=== PATIENT | female | born 1945 | race Caucasian/White ===

== ENCOUNTER 2017-07-28 12:37 | Outpatient (CLI) | payer MEDICARE ==
--- NOTE | 2017-07-28 14:23 | MRI ---
MRI LEFT SHOULDER: Date: 07/28/17 PROVIDED CLINICAL HISTORY: Shoulder pain. FINDINGS: There is mild multifocal undersurface irregularity involving the anterior distal supraspinatus tendon near the footplate. No discrete tear. The components of the rotator cuff appear otherwise normal. Th e long head biceps tendon appears intact and normally located. There is a mild glenohumeral joint effusion. The glenoid labrum and glenohumeral articular cartilage demonstrate no definite evidence for tear. There is slightly greater than physiologic subacromial/subdeltoid bursal fluid. The middle glenohumer al ligament appears irregular and attenuated. Postoperative changes of prior distal clavicular resect ion and acromioplasty are suspected. No focal concerning regional marrow or muscular signal abnormali ty is evident. IMPRESSION: 1. Undersurface irregularity of the distal conjoined tendon at the footplate without discrete tear. 2. Mild glenohumeral joint effusion. 3. Nonspecific attenuated and irregular appearance to the middle glenohumeral ligament, which could reflect injury. POS: [facility]
== END 2017-07-28 12:38 | disposition home or self-care (01) ==
LOC: TBSIIMAG 12:37
PROVIDERS: ATTEND Orthopaedic Surgery
DX: M25.512 Pain in left shoulder (principal); M25.412 Effusion, left shoulder

== ENCOUNTER 2017-12-04 10:14 | Outpatient (CLI) | payer MEDICARE ==
--- NOTE | 2017-12-04 14:01 | MRI ---
MRI OF THE CERVICAL SPINE WITHOUT CONTRAST: INDICATION: Right-sided neck pain that extends into the right arm and pinky finger. COMPARISON: Prior CT of the cervical spine dated 12/23/14 and MRI cervical spine dated 08/29/13. FINDINGS: There is an ACDF spanning C3 through C6 that is stable to the CT cervical spinal examination dated . The visualized posterior fossa appears within normal limits. Susceptibility artifact within the prevertebral soft tissues from the ACDF plates that limits evaluation. At C2-C3, there is moderate facet joint degenerative change and mild uncovertebral hypertrophy induci ng mild left neural foraminal narrowing which is stable. At C3-4, there is moderate bilateral facet joint degenerative change. There is no appreciable centra l canal or neural foraminal narrowing. At C4-5, there is moderate facet hypertrophy likely related to fusion without appreciable central can al or neural foraminal narrowing. At C5-6, there is no appreciable central canal or neural foraminal narrowing. At C6-7, there is a broad-based disk-osteophyte complex with facet joint degenerative change greater on the left inducing moderate left and mild right neural foraminal narrowing. This appears stable to a comparison examination in 2013. IMPRESSION: 1. Postsurgical change at C3 through C6 anterior cervical diskectomy and fusion. 2. Stable moderate left and mild right neural foraminal narrowing at C6-7. 3. Stable mild left neural foraminal narrowing at C2-3. POS: [facility]
== END 2017-12-04 10:15 | disposition home or self-care (01) ==
LOC: TBSIIMAG 10:14
PROVIDERS: ATTEND Specialist
DX: M54.12 Radiculopathy, cervical region (principal); M99.81 Other biomechanical lesions of cervical region; Z98.1 Arthrodesis status; Z98.890 Other specified postprocedural states
CPT/HCPCS: 72141

== ENCOUNTER 2018-01-04 01:21 | Inpatient (IN) | payer MEDICARE ==
[2018-01-04] MEDS ORDERED: Morphine 4 MG/ML VIAL ONE (02:06)
[2018-01-04 02:30] LABS: Lactic Acid 5.7 mmol/L (0.5-2.2)
[2018-01-04] MEDS ORDERED: Acetaminophen 650 MG Suppository PR PRN (03:20)
[2018-01-04] MEDS ORDERED: Sodium Chloride 0.9% 1,000 ML IV SCH ×3 (03:30→08:15)
[2018-01-04 03:53] LABS: Anion Gap 15 mmol/L (10-20); BUN (Urea Nitrogen) 12 mg/dL (9.8-20.1); Calc. Creatinine Clearance 0 mL/min (70-130); Calcium 8.3 mg/dL (7.8-10.44); Carbon Dioxide 19 mmol/L (23-31); Chloride 106 mmol/L (98-107); Estimated GFR-MDRD 58; Glucose 143 mg/dL (83-110); Potassium 3.9 mmol/L (3.5-5.1); Sodium 136 mmol/L (136-145)
[2018-01-04 05:15] LABS: Band 34 % (5-11); Hemoglobin 15.4 g/dL (12.0-16.0); Lymphocytes 7 % (21-51); MDiff Complete? YES; Mean Corpuscular HGB CONC 32.6 g/dL (32.0-36.0); Mean Corpuscular Hemoglobin 30.1 pg (27.0-31.0); Mean Corpuscular Volume 92.4 fL (78.0-98.0); Mean Platelet Volume 8.1 fL (7.4-10.4); Metamyelocyte 3 % (0-0); Monocytes 8 % (0-10); Neutrophil 48 % (42-75); Platelet Count 341 thou/uL (130-400); RBC Distribution Width 11.9 % (11.5-14.5); Red Blood Cell (RBC) Count 5.12 mill/uL (4.20-5.40); White Blood Cell (WBC) Count 8.7 thou/uL (4.8-10.8)
--- NOTE | 2018-01-04 05:36 | HP ---
DATE OF ADMISSION: 01/04/2018 PRIMARY CARE PHYSICIAN: Dr. Michael Tavera. CODE STATUS: FULL CODE. TIME OF EVALUATION: 3:00 a.m. HISTORY OF PRESENT ILLNESS: This is a 72-year-old female patient with past medical history positive for hyperlipidemia, hypertension, came to the hospital after having severe abdominal pain that has be en present since yesterday, but really worse today, associated with nausea, vomiting, chills. Patien t reported that the pain is 10/10, diffuse over the abdomen. No specific radiation, patient also rep orted some associated diarrhea, no blood in the stools were reported. No clear triggers, no alleviat ing factors, received pain medications. REVIEW OF SYSTEMS: Constitutional: Patient reported no fevers. She did report chills, generalized weakness. Respiratory: No cough, sputum production, shortness of breath. Cardiovascular: No chest pain or palpitations. Gastrointestinal: Patient reported nausea, vomiting, diarrhea, severe abdomi nal pain. [employer]: No dizziness, headache, or feeling lightheaded. Genitourinary: No burning on urina tion. Extremities: No leg swelling. All other systems were reviewed and negative except for the fi ndings mentioned above. PAST MEDICAL HISTORY: Reported in the HPI. PAST SURGICAL HISTORY: Patient had history of tubal ligation, lumpectomy, hysterectomy. PSYCHIATRIC HISTORY: No previous psychiatric history, no previous inpatient psych admissions. SOCIAL HISTORY: No alcohol, no drugs. No smoking history. KNOWN ALLERGIES: ASPIRIN, EGG, and IBUPROFEN. REPORTED MEDICATIONS: Lisinopril, atorvastatin, carisoprodol, mexiletine, Tums, Benadryl, naproxen, amitriptyline, hydrocodone/acetaminophen. PHYSICAL EXAMINATION: VITAL SIGNS: On presentation, blood pressure 148/96 with heart rate 101, respiratory rate was 20, te mperature 97.8, pain 10/10, oxygen saturation 100 on room air. GENERAL APPEARANCE: The patient is alert, ill appearing, oriented, not in any acute distress. HEENT: Normal conjunctivae. Dry oral mucosa. Anicteric. NECK: No JVD. RESPIRATORY: Bilateral air entry. No rales, no wheezing. Symmetric expansion. CARDIOVASCULAR: Patient is tachycardic, normal rhythm. No murmurs, no gallop, no edema. ABDOMEN: Soft, normal bowel sounds. MUSCULOSKELETAL: Baseline range of motion and strength. No tenderness. SKIN: Warm and intact. No pallor, no rash, no redness. Peripheral pulses are present. Capillary r efill seems to be intact. NEUROLOGIC: Baseline sensory. No evidence of any new focal weakness. Baseline speech. Cranial ner ves seem to be intact. PSYCHIATRIC: Patient is in good mood, no anxiety, oriented. Optimal judgment. IMAGING: CT scan was done and showed distal transverse colon and descending colon, wall thickening t hat seems to be infectious versus ischemic. LABORATORY DATA: Reviewed. The patient had sodium 136, potassium 3.9, chloride 106, carbon dioxide 19, anion gap 15, BUN 12, creatinine 0.94, GFR 58 with glucose 143. Lactic acid 5.7, the previous on e was 4. Hematology was reviewed. The patient has white count 9.7, hemoglobin 16.9, MCV 88, platele t count 372. Urine was negative. ASSESSMENT AND PLAN: The patient will be placed in the hospital with following medical problems: 1. Acute colitis. Differential diagnosis is ischemic or infectious etiology, patient is on antibiot ics, Dr. Orr has been consulted, was given recommendations for antibiotics, IV fluids. We will co ntinue for now, this is as per ER report. Patient has been seen and is stable, mildly tachycardic, s till with severe pain. 2. Severe abdominal pain needing opioid medications for optimal control, we will continue for now. This placed the patient at high risk for complications from treatment. 3. Hyperglycemia, glucose 143, no history of diabetes, this is likely due to acute physical distress , we will monitor, no need for any acute intervention at this point. 4. Lactic acidosis was initially 4, now 5.7, less likely secondary to chronic ischemia, treatment as above. We will treat the underlying condition. 5. Deep venous thrombosis prophylaxis. 6. History of hyperlipidemia, low cholesterol diet is advised. Medications will be reconciled once patient is able to take p.o. pills.
[2018-01-04 05:48] LABS: Lactic Acid 4.8 mmol/L (0.5-2.2)
[2018-01-04] MEDS: Ondansetron HCl/PF 4 MG/2 ML Vial IVP PRN (05:59)
[2018-01-04] MEDS ORDERED: Piperacillin/Tazobactam 3.375 GM in Sodium Chloride 0.9% 100 ML IVPB SCH (06:00)
--- NOTE | 2018-01-04 06:19 | PDOC.EVN ---
Event Note - Event Note Event Note: Pt. has continued to deteriorate, has become hypotensive, SBP 78, possible septic shock, we will hydrate aggressively, we have given updates to Dr Orr, he will see pt, will start on vasopressors if no response to ivf. pt already on abt's. will consult ICU
[2018-01-04] MEDS ORDERED: Albumin 5% 500 ML ONE (08:00)
--- NOTE | 2018-01-04 08:06 | PDOC.PN ---
- Subjective Encounter Start Date: 01/04/18 Encounter Start Time: 08:05 Worsening pain. Worsening distention. - Objective Resuscitation Status: Resuscitation Status FULL:Full Resuscitation Vital Signs & Weight: Vital Signs (12 hours) Temp Pulse Resp BP Pulse Ox 01/04/18 07:46 94 L 01/04/18 07:00 97.8 F 01/04/18 05:54 99.2 F 112 H 22 H 84/54 L 95 Weight Weight 186 lb 8 oz Most Recent Monitor Data Heart Rate from ECG 98 NIBP 77/41 NIBP BP-Mean 53 Respiration from ECG 27 SpO2 96 I&O: 01/03/18 01/04/18 01/05/18 06:59 06:59 06:59 Intake Total 100 Output Total 900 Balance -800 Result Diagrams: 01/04/18 01:54 01/04/18 01:54 Phys Exam - Physical Examination Ill appearing. Respiratory: no wheezing, no rales, no rhonchi Cardiovascular: RRR, no significant murmur Distended, diffusely TTP and guarding. Musculoskeletal: no edema Skin: normal turgor Dx/Plan (1) Colitis Code(s): K52.9 - NONINFECTIVE GASTROENTERITIS AND COLITIS, UNSPECIFIED Status : Acute (2) Sepsis Code(s): A41.9 - SEPSIS, UNSPECIFIED ORGANISM Status: Acute - Plan * Dropped her pressure this morning. Moved to ICU. 5 liters of fluid. Still hypotensive. Concerning for perforation. Discussed with Dr. Orantes and Dr. Orr. Plan surgery today.
--- NOTE | 2018-01-04 08:29 | HP ---
HISTORY OF PRESENT ILLNESS: A 72-year-old female who presents to the hospital late last night for on set abdominal pain yesterday with nausea and vomiting. Her pain is severe. She was found to be acid otic and have a high lactic acid level. Her white count was normal, although she had a severe left s hift. She was admitted to the floor as her blood pressure seemed to be normal, but it deteriorated i n the 70s and she was moved to the ICU. I am seeing her this morning, the patient states her pain is severe and intolerable and she states "please just do something". ALLERGIES: ASPIRIN, IBUPROFEN. TOBACCO: None. ALCOHOL: None. MEDICATIONS: Tramadol, lisinopril, gabapentin, Flexeril, atorvastatin, amitriptyline. PAST SURGICAL HISTORY: Carpal tunnel release, hysterectomy, cervical spine surgery. 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 She had a colonosco py in the last year or two. She has had a stress test with Dr. Khan that was normal in the last ye ar or two. REVIEW OF SYSTEMS: Ten point noncontributory. FAMILY HISTORY: Noncontributory. MEDICATIONS: The patient has been started on Zosyn. Dr. Orantes has seen her. IV fluid boluses given. PHYSICAL EXAMINATION: VITAL SIGNS: Height 5 foot 6 inches, 186 pounds, 30 BMI, 94% saturation, 77/41, heart rate 98. HEENT: Unremarkable. A 12-Turkmen NG tube in place. LUNGS: Clear to auscultation. CARDIAC: Regular rate and rhythm without murmur or gallop. ABDOMEN: Slightly distended, no bowel sounds, peritoneal signs diffusely. EXTREMITIES: Unremarkable. No ankle edema. LABORATORY DATA AND IMAGING: White count 8, hemoglobin 15, 34% bands. Sodium 136, potassium 3.9, ca rbon dioxide 19, BUN 12, creatinine 0.94. Lactic acid 5.7 at 0200, 4.8 at 0500. CAT scan of the abd omen and pelvis suggests diffuse colonic thickening. ASSESSMENT: Acute abdomen, expect ischemic bowel. PLAN: Laparotomy and indicated procedures, possible colostomy. Risk and benefits discussed, she con sents. We will plan that stat urgently this morning. We will place a central line. We will replace her NG tube most likely with adequate caliber NG tube.
[2018-01-04] MEDS: Sodium Chloride 0.9% 1,000 ML IV SCH ×5 (08:41→18:25)
[2018-01-04] MEDS: Pantoprazole 40 MG VIAL IVP SCH (08:53)
[2018-01-04] MEDS ORDERED: Phenylephrine HCL 10 MG/ML VIAL ONE (08:54)
[2018-01-04] MEDS ORDERED: Fentanyl 100 MCG/2 ML VIAL ONE (08:54)
[2018-01-04] MEDS: Hydrocortisone Sod Succ/PF 100 mg/2 ml Vial IVP SCH ×2 (08:55→18:00)
[2018-01-04] MEDS ORDERED: Sodium Chloride 0.9% 30 ML ONE (08:56)
--- NOTE | 2018-01-04 09:14 | RAD ---
PORTABLE CHEST: DATE: 01/04/18. PROVIDED CLINICAL HISTORY: Dyspnea. FINDINGS: No comparisons. Cardiac and mediastinal silhouette is within normal limits for portable technique. Bibasilar subsegmental atelectatic changes are seen. Elevation of the right hemidiaphragm of unknown chronicity. Enteric catheter is demonstrated, the tip of which projects in the region of the gastro esophageal junction and the proximal side hole lucency of which projects over the expected location o f the distal esophagus. No pleural fluid or pneumothorax evident. IMPRESSION: Enteric catheter positioning as above. Advancement is suggested. POS: [facility]
--- NOTE | 2018-01-04 09:57 | CON ---
DATE OF CONSULTATION: 01/04/2018 HISTORY OF PRESENT ILLNESS: This is a 72-year-old female from [place] who presented with symptoms o f severe abdominal pain, hypertension, diarrhea and vomiting several times. She received 5 liters of fluid. Blood pressure is still 80 systolic. Pulse 105, temperature 98, pul se 93. She is complaining of severe abdominal pain. PRIMARY CARE DOCTOR: Dr. Tavera, a Family Medicine physician here. SOCIAL HISTORY: She is nonsmoker. She has never had a similar pain in the past. PAST MEDICAL HISTORY: As outlined for chronic back pain, she has had recent back surgery done. Hist ory of hyperlipidemia, hypertension, neuropathy, arthritis. PAST SURGICAL HISTORY: Tubal ligation, lumpectomy, hysterectomy, back surgery. TOBACCO: None. ALCOHOL: None. MEDICATIONS: From home includes tramadol 50, lisinopril 10, gabapentin 600 twice a day, Flexeril 10, Lipitor 20, amitriptyline 75. ALLERGIES: ASPIRIN, IBUPROFEN. REVIEW OF SYSTEMS: Otherwise unremarkable. PHYSICAL EXAMINATION: VITAL SIGNS: Blood pressure is low 82/51, pulse 104, sats are 92%, maximal temperature 97. CHEST: Decreased breath sounds, no wheezing. CARDIAC: Normal S1, S2, no gallops. . ABDOMEN: Distended, very tender in the left upper quadrant, left lower quadrant. EXTREMITIES: No edema. NEUROLOGIC: Awake, alert, responsive. LABORATORY: She has got a white count 8.7, H&H 15 and 47, 48 segs, 34 bands. Renal function normal. Electrolytes normal. Lactic acid 4.8. X-RAY FINDINGS: Chest x-ray shows a marked elevated right hemidiaphragm. IMPRESSION: 1. Acute abdomen. Diverticulitis versus perforation. 2. Marked hypotension with lactic acidosis. 3. Hypertension. 4. Abnormal chest x-ray. 5. Chronic pain. PLAN: Stress dose of steroids were initiated. Continue Zosyn. Supportive care. We will follow. Surgery was consulted. She is to go to the operating room. Forty-five minutes critical care time.
[2018-01-04] MEDS ORDERED: Sodium Bicarbonate 2.5 MEQ/5 ML VIAL ONE (10:33)
[2018-01-04] MEDS ORDERED: Sodium Bicarb 50 MEQ/50 ML Abboject 8.4% SYRINGE ONE (10:37)
[2018-01-04] MEDS ORDERED: Fentanyl BOLUS 250 ML IVPB PRN (11:28)
[2018-01-04] MEDS ORDERED: Propofol BOLUS 1,000 MG/100 ML VIAL IV PRN (11:28)
[2018-01-04] MEDS ORDERED: DISCONTINUE PREVIOUS NARCOTIC PAIN MEDICATIONS AND BENZODIAZEPINES FS SCH (11:28)
[2018-01-04] MEDS ORDERED: Ventilator Sedation Protocol 1 EACH FS SCH (11:30)
[2018-01-04 11:50] LABS: Actual Bicarbonate (HCO3a) 14.3 mEq/L (22-28); Base Excess (BEa) -10.7 mEq/L (-2.0 to +3.0); CO2 Tension 29.5 mmHg (35.0-45.0); Calcium, Ionized 1.02 mmol/L (1.12-1.30); Carboxyhemoglobin (COHb) 1.1 gm% (0.0-3.0); Hemoglobin (Hb) 11.8 g/dL (12.0-16.0); O2 Tension (PaO2) 68.3 mmHg (> 70.0); Potassium - ABG Lab 3.94 mmol/L (3.70-5.30)
[2018-01-04 11:51] LABS: ALV-art Gradient 465.225 (0-20); Puncture Site ALINE
[2018-01-04] MEDS ORDERED: Hetastarch 6% 500 ML 500 ML ONE (12:02)
[2018-01-04] MEDS ORDERED: Norepinephrine 8 MG/0.9% NS 250 ML ONE (12:03)
--- NOTE | 2018-01-04 12:12 | RAD ---
CHEST 1 VIEW: Date: 01/04/18 HISTORY: 72-year-old female with history of respiratory insufficiency. FINDINGS: NG tube, endotracheal tube, and right subclavian catheters are in place. Poor inspiratory effort with some increased linear and interstitial markings bilaterally. Evidence for mild vascular congestion a nd possibly developing subsegmental atelectasis and/or minimal bilateral pneumonitis, without overt c onfluent process. IMPRESSION: Increased linear and interstitial markings bilaterally, particularly in the perihilar region and lowe r lung zones, evidence for worsening vascular congestion and possible mild subsegmental atelectasis a nd/or pneumonitis. No confluent pneumonia. Continue short-term follow-up. POS: [facility]
[2018-01-04] MEDS ORDERED: Hetastarch 6% 500 ML 500 ML IVPB SCH (12:15)
[2018-01-04] MEDS ORDERED: Albumin 25% 25 GM/100 ML BOT IVPB SCH (12:15)
[2018-01-04] MEDS: Norepinephrine 8 MG/0.9% NS 250 ML IVPB SCH (12:15)
[2018-01-04] MEDS: Piperacillin/Tazobactam 4.5 GM in Sodium Chloride 0.9% 100 ML IVPB SCH ×2 (12:37→18:00)
--- NOTE | 2018-01-04 12:49 | OP ---
DATE OF PROCEDURE: 01/04/2018 PREOPERATIVE DIAGNOSES: Peritonitis, ischemic gangrenous colon. POSTOPERATIVE DIAGNOSES: Peritonitis, ischemic gangrenous colon. Gangrenous splenic flexure with cl oudy peritoneal fluid sent for culture and sensitivity. PROCEDURE: Right subclavian vein triple lumen catheter. Exploratory laparotomy. Mobilization of sp lenic flexure. Resection of the distal transverse colon, splenic flexure, descending colon, sigmoid colon with Alvaro's pouch marked with a 2-0 Prolene suture and a colostomy end with adequate redund ant colon for future reversal. SURGEON: Raymond Orr M.D. ANESTHESIA: General. ESTIMATED BLOOD LOSS: Less than 100 mL. BLOOD TRANSFUSED: None. DISPOSITION: The patient left intubated and transferred to the Intensive Care Unit in critical condi tion, although improved. PROCEDURE IN DETAIL: The patient was taken to the operating room where under general anesthesia, Fol ey catheter was placed. Abdomen prepared with ChloraPrep, draped in routine fashion. Incision was m ivania centered about the umbilicus in the midline, carried down skin and subcutaneous tissue, midline f ascia and abdominal cavity sharply. There was serous cloudy peritoneal fluid, but no stool evident. This fluid was sent for culture and sensitivity. It was evacuated. A transverse colon, splenic fle xure, descending colon, sigmoid colon mobilized. Left ureter identified and kept free of harm. Ther e was a viable section of the distal transverse colon, the colon was divided with BETHANY stapler. Disse ction carried out distally and the descending colon divided with a BETHANY stapler, colon mobilized. Mes entery divided with the LigaSure and resected submitted to Pathology. Some of the omentum was also t aken down with the LigaSure and submitted to pathology. A segment of sigmoid colon was dissected pradip e, left ureter identified and kept free of harm, divided with the LigaSure and Alvaro's pouch creat ed with another fire of the BETHANY stapler to facilitate future colostomy reversal. Good hemostasis not ed and obtained with the cautery. Ureter kept free of harm. Abdominal cavity irrigated thoroughly w ith saline solution, irrigant evacuated. Hemostasis noted. A circular defect made in the skin, exci sing skin and subcutaneous tissue down to the anterior rectus fascia making a cruciate incision, spli tting the rectus muscle and creating a colostomy, colon brought out through this colostomy. As spong e and needle counts were correct, midline fascia closed with continuous suture of 3-0 #1 PDS. Skin a nd subcutaneous tissues irrigated. Skin loosely approximated with zahida. Wound VAC applied and th en colostomy matured, excising the colon. There was a gangrenous ischemic mucosa. More colon was pu lled out of the wound and resected another 3-4 inches of colon to viable mucosa. The colon was trans ected, matured with 4 turn bolt sutures of 3-0 Vicryl interrupted sutures of 3-0 Vicryl to complete c olostomy maturation, colostomy appliance secured. Gloves and gowns changed, sterile technique used. Right periclavicular prepared with ChloraPrep, janice ped in routine fashion. Seldinger technique used to place a right subclavian vein infraclavicular ap proach, removing the J-wire, securing the catheter with 3-0 silk suture. Biopatch sterile dressing a pplied. Each port aspirated of blood and flushed with saline solution. The patient tolerated the pr ocedure well.
[2018-01-04] MEDS: fentaNYL Citrate/PF 2,000 MCG in Sodium Chloride 0.9% 60 ML IV SCH (13:00)
[2018-01-04] MEDS ORDERED: PHENYLEPHRINE-NS 100 MCG/ML 10 ML SYRINGE ONE (13:13)
[2018-01-04] MEDS ORDERED: Sodium Bicarb 50 MEQ/50 ML VIAL ONE (13:13)
[2018-01-04] MEDS ORDERED: Lidocaine 1% PF 5 ML VIAL ONE (13:13)
[2018-01-04] MEDS ORDERED: Succinylcholine Chloride 20 MG/ML 10 ml SYRINGE FS ONE (13:13)
[2018-01-04] MEDS ORDERED: PROPOFOL 200 MG/20 ML VIAL ONE (13:13)
[2018-01-04] MEDS: Propofol 1,000 MG/100 ML VIAL IV PRN (16:00)
[2018-01-04] MEDS: Albumin 25% 25 GM/100 ML BOT IVPB SCH (17:59)
[2018-01-04] MEDS: Enoxaparin Sodium 40 MG/0.4 ML SYRINGE SC SCH (20:20)
[2018-01-05] MEDS: Sodium Chloride 0.9% 1,000 ML IV SCH ×3 (00:16→09:55)
[2018-01-05] MEDS: Propofol 1,000 MG/100 ML VIAL IV PRN ×2 (00:16→04:24)
[2018-01-05] MEDS: Piperacillin/Tazobactam 4.5 GM in Sodium Chloride 0.9% 100 ML IVPB SCH ×4 (00:16→18:26)
[2018-01-05] MEDS: Albumin 25% 25 GM/100 ML BOT IVPB SCH ×4 (00:17→18:26)
[2018-01-05] MEDS: Hydrocortisone Sod Succ/PF 100 mg/2 ml Vial IVP SCH ×4 (00:17→18:30)
[2018-01-05] MEDS: fentaNYL Citrate/PF 2,000 MCG in Sodium Chloride 0.9% 60 ML IV SCH (02:45)
[2018-01-05] MEDS: Norepinephrine 8 MG/0.9% NS 250 ML IVPB SCH (04:15)
[2018-01-05 06:04] LABS: Band 40 % (5-11); Lymphocytes 8 % (21-51); MDiff Complete? YES; Mean Corpuscular HGB CONC 32.7 g/dL (32.0-36.0); Mean Corpuscular Hemoglobin 29.8 pg (27.0-31.0); Mean Corpuscular Volume 91.2 fL (78.0-98.0); Metamyelocyte 5 % (0-0); Monocytes 6 % (0-10); Neutrophil 39 % (42-75); Platelet Count 229 thou/uL (130-400); Reactive Lymphocytes 2 % (0-10); Red Blood Cell (RBC) Count 3.35 mill/uL (4.20-5.40); White Blood Cell (WBC) Count 11.9 thou/uL (4.8-10.8)
[2018-01-05 06:49] LABS: ALT (SGPT) 34 U/L (8-55); AST (SGOT) 47 U/L (5-34); Albumin 2.7 g/dL (3.4-4.8); Alkaline Phosphatase 78 U/L (40-150); Anion Gap 11 mmol/L (10-20); BUN (Urea Nitrogen) 17 mg/dL (9.8-20.1); Calc. Creatinine Clearance 76 mL/min (70-130); Carbon Dioxide 15 mmol/L (23-31); Chloride 117 mmol/L (98-107); Estimated GFR-MDRD 64; Globulin 1.6 g/dL (2.4-3.5); Glucose 132 mg/dL (83-110); Magnesium 1.5 mg/dL (1.6-2.6); Phosphorus 2.2 mg/dL (2.3-4.7); Potassium 3.3 mmol/L (3.5-5.1); Protein, Total 4.3 g/dL (6.0-8.3); Sodium 140 mmol/L (136-145)
[2018-01-05 07:22] LABS: Actual Bicarbonate (HCO3a) 14.3 mEq/L (22-28); Base Excess (BEa) -7.4 mEq/L (-2.0 to +3.0); Calcium, Ionized 1.02 mmol/L (1.12-1.30); Hemoglobin (Hb) 9.8 g/dL (12.0-16.0); O2 Tension (PaO2) 110.5 mmHg (> 70.0); Potassium - ABG Lab 3.24 mmol/L (3.70-5.30); pH, Arterial 7.49 (7.35-7.45)
[2018-01-05 07:25] LABS: CO2 Tension 19.2 mmHg (35.0-45.0); Puncture Site LINE
[2018-01-05] MEDS ORDERED: Magnesium Sulfate 4 GM in Sodium Chloride 0.9% 250 ML 250 ML IVPB SCH (08:00)
[2018-01-05] MEDS ORDERED: Potassium Phosphate 30 MMOL in Sodium Chloride 0.9% 250 ML 250 ML IVPB SCH (08:00)
--- NOTE | 2018-01-05 08:26 | RAD ---
PORTABLE CHEST: History: Respiratory distress. Comparison: Prior day's study. FINDINGS: Endotracheal and NG tube and right subclavian line are all in satisfactory and unchanged position. Pa renchymal lung changes are stable. IMPRESSION: Stable exam. POS: [facility]
--- NOTE | 2018-01-05 08:29 | PRG ---
DATE OF SERVICE: 01/05/2018 This morning, she is intubated on the vent and sedated on Diprivan. PHYSICAL EXAMINATION: VITAL SIGNS: Pulse 87, blood pressure 130/87, sat 90%, respirations 18. GENERAL: She barely opens eyes. CHEST: Extensive rhonchi and crackles. CARDIAC: Sinus tachycardia. ABDOMEN: Soft. NEUROLOGIC: Awake, responsive. LABORATORY DATA: White count 11,000, hemoglobin and hematocrit 10 and 30, platelet count 229, PO2 o f 110, pCO2 90%, 49, rate 20, 50%. Electrolytes are normal. ____ 3.3. IMPRESSION: 1. Acute abdomen. 2. Hypertension. 3. Sepsis shock. 4. Respiratory failure with abnormal chest x-ray, bilateral infiltrates. PLAN: Stress dose of steroids initiated, broad-spectrum antibiotics, Zosyn on board. Supportive car e. We will try and wean and extubate when stable. One-half hour critical care time.
[2018-01-05] MEDS ORDERED: DC Sedation Protocol FS ONE (08:53)
[2018-01-05] MEDS ORDERED: Prevnar 13-Val Conj/PF 0.5 ML SYRINGE IM ONE (09:00)
[2018-01-05] MEDS: Pantoprazole 40 MG VIAL IVP SCH (09:55)
[2018-01-05] MEDS ORDERED: Morphine 4 MG/ML Carpuject SLOW IVP PRN (12:31)
--- NOTE | 2018-01-05 12:57 | PRG ---
DATE OF SERVICE: 01/05/2018 SUBJECTIVE: Ms. Braga is a doing well. She has been extubated this morning. She is slightly conf used. She is, however, awake and alert and conversive. PHYSICAL EXAMINATION: VITAL SIGNS: Blood pressure 127/79, heart rate 110. Urine output 2225 Blake in the last 24 hours. Gastric output minimal. LUNGS: Clear to auscultation. CARDIAC: Regular rate and rhythm. ABDOMEN: Soft. Wound VAC in place. Colostomy healthy. EXTREMITIES: Unremarkable. LABORATORY: Potassium 3.3, sodium 140, BUN 17, creatinine 0.87. Magnesium, phosphorus slightly low and have been replaced. Cortisol level 25.5. White count 11, hemoglobin 10. ASSESSMENT AND PLAN: 1. Doing well. Colostomy status. NG tube has put out very little. Her small bowel was not dilated . Would at this point remove her NG tube. Would keep her n.p.o. for now. She can have sips and chi ps. We will decrease her IV fluids and change to LR with potassium. Would keep her n.p.o. until she has more definitive bowel function and assuring ileus would not develop. Dr. Allen is covering the weekend and will see her. 2. N.p.o. status. I do not think she needs TPN or parenteral nutrition at this time, would await fracisco wel function and advance her diet as tolerated. 3. Need to increase her mobility up in a chair. 4. Wound VAC to be changed Monday. I will view the wound Monday. 5. Gangrene colon, status post colectomy and colostomy and sepsis.
--- NOTE | 2018-01-05 13:30 | CON ---
DATE OF CONSULTATION: 01/05/2018 REASON FOR CONSULTATION: Ischemia colon. HISTORY OF PRESENT ILLNESS: Ms. Braga came in at 3:00 in the morning on 01/04/2018 with severe abd ominal pain that started about the day before or may be that day. She has just been extubated and he r memory is a bit foggy, apparently it was severe pain. She noted no prior history of chronic colon or GI diseases, but stated that she tends to be constipated. That day when she came in, she was hav ing a little bit of diarrhea, but no bleeding. She had a CAT scan that showed a distal transverse co tino and descending colon wall thickening. She had an elevated lactic acid, white count 9, platelet c ount of 372. She is admitted with a diagnosis of acute colitis. Dr. Orr was called to see the francie nichole and saw her at 8 in the morning. Overnight, the patient had apparently deteriorated with dropp ing her blood pressure and was moved to the ICU and her pain was worsening. He opted to bring her to the operating room for suspected ischemic bowel and in the operating room, found ischemic gangrenou s colon with peritonitis, gangrenous splenic flexure, resected at the splenic flexure and distal quintanilla sverse colon, descending colon and sigmoid colon. PAST SURGICAL HISTORY: Tubal ligation, lumpectomy, hysterectomy. She denies ever having colonoscopy before. PAST MEDICAL HISTORY: Hypertension, hyperlipidemia, fibromyalgia, arthritis. ALLERGIES: ASPIRIN, ____ derivatives and IBUPROFEN. HOME MEDICATIONS: Lisinopril, atorvastatin, carvedilol, mexiletine Tums, Benadryl, amitriptyline. PRESENT MEDICATIONS: Tylenol, albumin, Lovenox, Solu-Cortef, Toradol, morphine, Protonix, normal samson ine at 150. She is on Zosyn as well. LABORATORY AND X-RAY FINDINGS: White count 11, hemoglobin 10, platelet count 228. Sodium 140, potas sium 3.3, glucose 132, calcium 7, phosphorus 2.2, magnesium 1.5, AST and ALT of 47 and 34, albumin 2. 4. Cortisol was 25. ASSESSMENT: This is a 72-year-old female who presented with acute colonic ischemia, left-sided. Thi s is likely related to low flow state, could be related to severe obstipation and laxative use. It i s really not clear from her history; however, she is not very awake. Typically ischemic colitis in t he left side of the colon is not an arterial problem, but more of a venous outflow problem that usual ly results from dehydration or use of strong ____. Presently she seems stable. RECOMMENDATIONS: Maintain hydration and await pathology. No new recommendations at this time.
--- NOTE | 2018-01-05 13:33 | PDOC.PN ---
- Subjective Encounter Start Date: 01/05/18 Encounter Start Time: 08:30 -: old records requested/rev this morning pt is extubated, Patient seen and examined. No overnight events - Objective Resuscitation Status: Resuscitation Status FULL:Full Resuscitation MAR Reviewed: Yes Vital Signs & Weight: Vital Signs (12 hours) Temp Pulse Resp BP Pulse Ox 01/05/18 11:40 114 H 16 91 L 01/05/18 08:55 91 L 01/05/18 08:00 99.1 F 20 01/05/18 07:11 63 118/61 01/05/18 06:00 20 01/05/18 04:00 97.6 F 20 01/05/18 02:00 20 Weight Weight 186 lb 8 oz Most Recent Monitor Data Heart Rate from ECG 107 NIBP 120/74 NIBP BP-Mean 89 Respiration from ECG 23 SpO2 91 I&O: 01/04/18 01/05/18 01/06/18 06:59 06:59 06:59 Intake Total 8451 27.8 Output Total 2485 175 Balance 5966 -147.2 Result Diagrams: 01/05/18 04:34 01/05/18 04:34 Radiology Reviewed by me: Yes (chest xray reviewed) EKG Reviewed by me: Yes (nsr) Phys Exam - Physical Examination Constitutional: NAD NG tube in place HEENT: PERRLA, moist MMs, sclera anicteric Neck: no JVD, supple Respiratory: no wheezing, no rales, no rhonchi Cardiovascular: RRR, no significant murmur, no rub central line on right chest Gastrointestinal: soft, no distention wound vac in place, colostomy+ Musculoskeletal: no edema, pulses present Neurological: non-focal, normal sensation Lymphatic: no nodes Psychiatric: normal affect, A&O x 3 Skin: no rash, normal turgor Dx/Plan (1) Acute bacterial peritonitis Code(s): K65.9 - PERITONITIS, UNSPECIFIED Status: Acute Comment: on Zosyn, follow culture (2) Acute respiratory insufficiency, postoperative Code(s): J95.89 - OTH POSTPROC COMPLICATIONS AND DISORDERS OF RESP SYS, NEC Status: Acute Comment: pt is extubated today, wean off oxygen as tolerated (3) Anemia due to blood loss, acute Code(s): D62 - ACUTE POSTHEMORRHAGIC ANEMIA Status: Acute Comment: monitor CBC (4) Gangrene of colon Code(s): K55.049 - ACUTE INFARCTION OF LARGE INTESTINE, EXTENT UNSPECIFIED Status: Acute Comment: s/p colectomy (5) Hypokalemia Code(s): E87.6 - HYPOKALEMIA Status: Acute (6) Hypomagnesemia Code(s): E83.42 - HYPOMAGNESEMIA Status: Acute (7) Hypophosphatemia Code(s): E83.39 - OTHER DISORDERS OF PHOSPHORUS METABOLISM Status: Acute (8) Lactic acidosis Code(s): E87.2 - ACIDOSIS Status: Acute (9) Severe sepsis Code(s): A41.9 - SEPSIS, UNSPECIFIED ORGANISM; R65.20 - SEVERE SEPSIS WITHOUT SEPTIC SHOCK Status: Acute (10) Depression Code(s): F32.9 - MAJOR DEPRESSIVE DISORDER, SINGLE EPISODE, UNSPECIFIED Status : Chronic (11) Dyslipidemia Code(s): E78.5 - HYPERLIPIDEMIA, UNSPECIFIED Status: Chronic (12) Hypertension Code(s): I10 - ESSENTIAL (PRIMARY) HYPERTENSION Status: Chronic (13) Obesity (BMI 30.0-34.9) Code(s): E66.9 - OBESITY, UNSPECIFIED Status: Chronic - Plan cont current plan of care, continue antibiotics * replace potassium phosphate * replace magnesium sulfate * medication reviewed as below * symptomatic treatment as below * NG tube may be removed later today * diet will defer to surgeon, for now keep NPO * repeat labs tomorrow. Review of Systems - Review of Systems ENT: negative: Ear Pain, Ear Discharge, Nose Pain, Nose Discharge, Nose Congestion, Mouth Pain, Mouth Swelling, Throat Pain, Throat Swelling, Other Respiratory: negative: Cough, Dry, Shortness of Breath, Hemoptysis, SOB with Excertion, Pleuritic Pain, Sputum, Wheezing Cardiovascular: negative: chest pain, palpitations, orthopnea, paroxysmal nocturnal dyspnea, edema, light headedness, other Gastrointestinal: negative: Nausea, Vomiting, Abdominal Pain, Diarrhea, Constipation, Melena, Hematochezia, Other Genitourinary: negative: Dysuria, Frequency, Incontinence, Hematuria, Retention , Other Musculoskeletal: negative: Neck Pain, Shoulder Pain, Arm Pain, Back Pain, Hand Pain, Leg Pain, Foot Pain, Other - Medications/Allergies Allergies/Adverse Reactions: Allergies Allergy/AdvReac Type Severity Reaction Status Date / Time egg Allergy Mild Verified 10/08/13 11:43 aspirin Allergy Verified 10/09/13 11:42 ibuprofen Allergy Verified 10/09/13 11:42 Medications: Current Medications Albumin Human (Albumin 25%) 25 gm IVPB Q6HR [facility] Stop: 01/06/18 18:01 Last Admin: 01/05/18 12:31 Dose: 25 gm Albuterol/Ipratropium (Duoneb) 3 ml NEB [id number] [facility] Last Admin: 01/05/18 11:40 Dose: 3 ml Enoxaparin Sodium (Lovenox) 40 mg SC 2100 [facility] Last Admin: 01/04/18 20:20 Dose: 40 mg Hydrocortisone Sodium Succinate (Solu-Cortef) 50 mg IVP Q6HR [facility] Last Admin: 01/05/18 12:31 Dose: 50 mg Piperacillin Sod/Tazobactam (Sod 4.5 gm/ Sodium Chloride) 100 mls @ 200 mls/hr IVPB Q6HR [facility] Last Admin: 01/05/18 12:30 Dose: 100 mls Potassium Phosphate 30 mmol/ (Sodium Chloride) 260 mls @ 42.466 mls/hr IVPB NOW [facility] Stop: 01/05/18 15:00 Last Admin: 01/05/18 09:56 Dose: 260 mls Acetaminophen 1,000 mg/ Device 100 mls @ 400 mls/hr IVPB Q6HR [facility] Stop: 01/06/18 18:01 Potassium Chloride 30 meq/ (Dextrose/Lactated Ringer's) 1,015 mls @ 125 mls/hr IV .Q8H8M [facility] Ketorolac Tromethamine (Toradol) 30 mg IVP Q6H PRN PRN Reason: Pain Stop: 01/10/18 12:32 Lorazepam (Ativan) 2 mg SLOW IVP Q1H PRN PRN Reason: Breakthrough agitation Stop: 02/03/18 11:28 Morphine Sulfate (Morphine) 2 mg SLOW IVP Q2H PRN PRN Reason: Pain Discontinue Previous Narcotic Pain Medications And Benzodiazepines 1 each FS .ONE [facility] Stop: 02/03/18 11:28 Ondansetron HCl (Zofran) 4 mg IVP Q6H PRN PRN Reason: Nausea/Vomiting Last Admin: 01/04/18 05:59 Dose: 4 mg Pantoprazole Sodium (Protonix) 40 mg IVP DAILY [facility] Last Admin: 01/05/18 09:55 Dose: 40 mg Propofol (Diprivan) 1,000 mg IV INF PRN; Protocol PRN Reason: TO ACHIEVE GOAL RASS Stop: 02/03/18 11:28 Last Admin: 01/05/18 04:24 Dose: 1,000 mg Sodium Chloride (Flush - Normal Saline) 10 ml IVF DAILY [facility] Last Admin: 01/05/18 09:56 Dose: 10 ml Sodium Chloride (Flush - Normal Saline) 10 ml IVF PRN PRN PRN Reason: Saline Flush
[2018-01-05] MEDS: Ketorolac Tromethamine 30 MG/ML VIAL IVP PRN (14:21)
[2018-01-05] MEDS: Acetaminophen 1,000 MG in Premix Bag 1 BAG IVPB SCH ×2 (15:20→18:12)
[2018-01-05] MEDS: Enoxaparin Sodium 40 MG/0.4 ML SYRINGE SC SCH (20:32)
[2018-01-06] MEDS: Acetaminophen 1,000 MG in Premix Bag 1 BAG IVPB SCH ×4 (00:56→21:18)
[2018-01-06] MEDS: Piperacillin/Tazobactam 4.5 GM in Sodium Chloride 0.9% 100 ML IVPB SCH ×4 (00:57→21:19)
[2018-01-06] MEDS: Hydrocortisone Sod Succ/PF 100 mg/2 ml Vial IVP SCH ×3 (00:57→12:00)
[2018-01-06] MEDS: Albumin 25% 25 GM/100 ML BOT IVPB SCH ×2 (00:58→05:29)
[2018-01-06] MEDS: Ketorolac Tromethamine 30 MG/ML VIAL IVP PRN (03:36)
[2018-01-06] MEDS ORDERED: Diabetic Tussin 200 MG/10 ML UDCUP PO PRN (03:59)
[2018-01-06] MEDS ORDERED: Lorazepam 2 MG/ML VIAL SLOW IVP PRN ×2 (05:19→14:19)
[2018-01-06 05:20] LABS: ALT (SGPT) 40 U/L (8-55); AST (SGOT) 55 U/L (5-34); Alkaline Phosphatase 85 U/L (40-150); Anion Gap 9 mmol/L (10-20); BUN (Urea Nitrogen) 16 mg/dL (9.8-20.1); Bilirubin, Total 0.5 mg/dL (0.2-1.2); Calc. Creatinine Clearance 74 mL/min (70-130); Calcium 8.2 mg/dL (7.8-10.44); Carbon Dioxide 20 mmol/L (23-31); Chloride 120 mmol/L (98-107); Estimated GFR-MDRD 62; Globulin 1.6 g/dL (2.4-3.5); Glucose 152 mg/dL (83-110); Magnesium 3.2 mg/dL (1.6-2.6); Phosphorus 2.5 mg/dL (2.3-4.7); Potassium 3.7 mmol/L (3.5-5.1); Protein, Total 5.6 g/dL (6.0-8.3); Sodium 145 mmol/L (136-145)
[2018-01-06] MEDS ORDERED: Lorazepam 2 MG/ML VIAL SLOW IVP SCH (05:30)
[2018-01-06 06:38] LABS: Band 22 % (5-11); Hemoglobin 8.6 g/dL (12.0-16.0); Lymphocytes 4 % (21-51); MDiff Complete? YES; Mean Corpuscular HGB CONC 33.6 g/dL (32.0-36.0); Mean Corpuscular Volume 92.3 fL (78.0-98.0); Mean Platelet Volume 7.6 fL (7.4-10.4); Metamyelocyte 1 % (0-0); Monocytes 3 % (0-10); Neutrophil 70 % (42-75); PLT Morphology Comment Appears Adequate; Platelet Count 172 thou/uL (130-400); RBC Distribution Width 12.1 % (11.5-14.5); Red Blood Cell (RBC) Count 2.76 mill/uL (4.20-5.40); White Blood Cell (WBC) Count 11.7 thou/uL (4.8-10.8)
[2018-01-06 06:51] LABS: Actual Bicarbonate (HCO3a) 15.5 mEq/L (22-28); Base Excess (BEa) -12.7 mEq/L (-2.0 to +3.0); CO2 Tension 45.6 mmHg (35.0-45.0); Calcium, Ionized 1.18 mmol/L (1.12-1.30); Carboxyhemoglobin (COHb) 1.2 gm% (0.0-3.0); Hemoglobin (Hb) 9.8 g/dL (12.0-16.0); Potassium - ABG Lab 3.59 mmol/L (3.70-5.30)
[2018-01-06] MEDS ORDERED: Furosemide 40 MG/4 ML VIAL ONE (07:02)
[2018-01-06 07:06] LABS: pH, Arterial 7.15 (7.35-7.45)
[2018-01-06 07:07] LABS: Puncture Site LRA
[2018-01-06] MEDS ORDERED: Furosemide 40 MG/4 ML VIAL SLOW IVP SCH ×2 (07:15→14:00)
[2018-01-06 08:15] LABS: Lactic Acid 3.1 mmol/L (0.5-2.2)
[2018-01-06] MEDS ORDERED: Sodium Bicarb 50 MEQ/50 ML Abboject 8.4% SYRINGE IVP SCH ×2 (08:15→08:45)
[2018-01-06] MEDS ORDERED: Sodium Bicarb 50 MEQ/50 ML Abboject 8.4% SYRINGE ONE (08:30)
[2018-01-06] MEDS ORDERED: Sodium Bicarb 50 MEQ/50 ML VIAL IVP SCH (08:45)
[2018-01-06] MEDS: Pantoprazole 40 MG VIAL IVP SCH (09:17)
--- NOTE | 2018-01-06 09:35 | RAD ---
AP CHEST: History: Ventilator dependent patient. Date: 01-06-18 Comparison: 01-05-18 FINDINGS: AP chest demonstrates ACDF plates and screws in place. The patient has been extubated. The NG tube aguilera s been removed. Again, right subclavian central line is seen. Pulmonary vascular congestion is noted. There is interval development of areas of airspace opacity in the right upper lobe and some in the ri ght middle lobe and right lower lobe regions. These may represent areas of right lung pneumonia or pu lmonary edema. There is also some pulmonary vascular congestion which has developed in the left lung. There is loss of the right lung hemidiaphragm interface compatible with a right sided pleural effusi on. IMPRESSION: 1. Increased pulmonary vascular congestion. 2. Increasing airspace opacities in the right upper lobe, right lower lobe, and right middle lobe con cerning for areas of right lung edema or pneumonia. 3. Interval extubation of the patient. POS: [facility]
[2018-01-06 09:37] LABS: Actual Bicarbonate (HCO3a) 25.1 mEq/L (22-28); Base Excess (BEa) 0.4 mEq/L (-2.0 to +3.0); CO2 Tension 40.8 mmHg (35.0-45.0); Calcium, Ionized 1.05 mmol/L (1.12-1.30); Carboxyhemoglobin (COHb) 0.8 gm% (0.0-3.0); Hemoglobin (Hb) 8.8 g/dL (12.0-16.0); O2 Tension (PaO2) 72.3 mmHg (> 70.0); Potassium - ABG Lab 2.97 mmol/L (3.70-5.30); pH, Arterial 7.41 (7.35-7.45)
[2018-01-06 09:52] LABS: Puncture Site LBA
--- NOTE | 2018-01-06 10:18 | PDOC.PN ---
- Subjective Encounter Start Date: 01/06/18 Encounter Start Time: 08:20 this morning pt was hypoxic, last night pt was delirious, she is acidotic today , she has more congestion in chest, - Objective Resuscitation Status: Resuscitation Status FULL:Full Resuscitation MAR Reviewed: Yes Vital Signs & Weight: Vital Signs (12 hours) Temp Pulse Resp Pulse Ox 01/06/18 07:23 95 24 H 98 01/06/18 07:22 95 24 H 98 01/06/18 07:05 99 01/06/18 06:32 93 L 01/06/18 05:26 92 21 H 92 L 01/06/18 04:00 98.9 F 01/06/18 00:00 99.3 F 93 L 01/05/18 22:37 100 29 H 94 L Weight Admit Weight 186 lb 8.001 oz Weight 197 lb 8.547 oz Most Recent Monitor Data Heart Rate from ECG 97 NIBP 163/90 NIBP BP-Mean 114 Respiration from ECG 16 SpO2 97 I&O: 01/05/18 01/06/18 01/07/18 06:59 06:59 06:59 Intake Total 8451 4974.6 Output Total 2485 1550 100 Balance 5966 3424.6 -100 Result Diagrams: 01/06/18 03:30 01/06/18 03:30 Additional Labs: Accuchecks 01/05/18 21:07 POC Glucose 152 H Radiology Reviewed by me: Yes (chest xray reviewed ) EKG Reviewed by me: Yes (nsr) Phys Exam - Physical Examination Constitutional: NAD HEENT: PERRLA, moist MMs, sclera anicteric Neck: no JVD, supple bilateral basal rales, wheezing+ Cardiovascular: RRR, no significant murmur, no rub Gastrointestinal: soft, no distention wound vac in place, colostomy+ Musculoskeletal: no edema, pulses present SCD+ Neurological: moves all 4 limbs Lymphatic: no nodes Psychiatric: normal affect Skin: no rash, normal turgor Dx/Plan (1) Acute bacterial peritonitis Code(s): K65.9 - PERITONITIS, UNSPECIFIED Status: Acute Comment: on Zosyn, follow culture (2) Acute respiratory insufficiency, postoperative Code(s): J95.89 - OTH POSTPROC COMPLICATIONS AND DISORDERS OF RESP SYS, NEC Status: Acute Comment: pt is extubated today, wean off oxygen as tolerated (3) Anemia due to blood loss, acute Code(s): D62 - ACUTE POSTHEMORRHAGIC ANEMIA Status: Acute Comment: monitor CBC (4) Gangrene of colon Code(s): K55.049 - ACUTE INFARCTION OF LARGE INTESTINE, EXTENT UNSPECIFIED Status: Acute Comment: s/p colectomy (5) Hypokalemia Code(s): E87.6 - HYPOKALEMIA Status: Acute (6) Hypomagnesemia Code(s): E83.42 - HYPOMAGNESEMIA Status: Acute (7) Hypophosphatemia Code(s): E83.39 - OTHER DISORDERS OF PHOSPHORUS METABOLISM Status: Acute (8) Lactic acidosis Code(s): E87.2 - ACIDOSIS Status: Acute (9) Severe sepsis Code(s): A41.9 - SEPSIS, UNSPECIFIED ORGANISM; R65.20 - SEVERE SEPSIS WITHOUT SEPTIC SHOCK Status: Acute (10) Depression Code(s): F32.9 - MAJOR DEPRESSIVE DISORDER, SINGLE EPISODE, UNSPECIFIED Status : Chronic (11) Dyslipidemia Code(s): E78.5 - HYPERLIPIDEMIA, UNSPECIFIED Status: Chronic (12) Hypertension Code(s): I10 - ESSENTIAL (PRIMARY) HYPERTENSION Status: Chronic (13) Obesity (BMI 30.0-34.9) Code(s): E66.9 - OBESITY, UNSPECIFIED Status: Chronic (14) Metabolic acidosis Code(s): E87.2 - ACIDOSIS Status: Acute (15) Pulmonary vascular congestion Code(s): R09.89 - OTH SYMPTOMS AND SIGNS INVOLVING THE CIRC AND RESP SYSTEMS Status: Acute (16) Delirium Code(s): R41.0 - DISORIENTATION, UNSPECIFIED Status: Acute - Plan cont current plan of care, continue antibiotics, respiratory therapy, incentive spirometry, DVT proph w/lovenox * add lasix 40 mg iv bid * bicarbonate given * keep on Bipap * reduce IVF to KVO rate * medication reviewed as below * symptomatic treatment * monitor in ccu * pt is NPO * continue post operative surgical care * incentive spirometry * check BNP. Review of Systems - Review of Systems Other: not reliable due to her level of cognitive status - Medications/Allergies Allergies/Adverse Reactions: Allergies Allergy/AdvReac Type Severity Reaction Status Date / Time egg Allergy Mild Verified 10/08/13 11:43 aspirin Allergy Verified 10/09/13 11:42 ibuprofen Allergy Verified 10/09/13 11:42 Medications: Current Medications Albuterol/Ipratropium (Duoneb) 3 ml NEB [id number] [facility] Last Admin: 01/06/18 07:23 Dose: 3 ml Enoxaparin Sodium (Lovenox) 40 mg SC 2100 [facility] Last Admin: 01/05/18 20:32 Dose: 40 mg Furosemide (Lasix) 40 mg SLOW IVP 0600,1400 [facility] Guaifenesin (Robitussin Sf) 200 mg PO Q6H PRN PRN Reason: Cough Last Admin: 01/06/18 04:02 Dose: 200 mg Hydrocortisone Sodium Succinate (Solu-Cortef) 50 mg IVP Q6HR [facility] Last Admin: 01/06/18 05:29 Dose: 50 mg Piperacillin Sod/Tazobactam (Sod 4.5 gm/ Sodium Chloride) 100 mls @ 200 mls/hr IVPB Q6HR [facility] Last Admin: 01/06/18 05:28 Dose: 100 mls Acetaminophen 1,000 mg/ Device 100 mls @ 400 mls/hr IVPB Q6HR [facility] Stop: 01/06/18 18:01 Last Admin: 01/06/18 05:28 Dose: 100 mls Ketorolac Tromethamine (Toradol) 30 mg IVP Q6H PRN PRN Reason: Pain Stop: 01/10/18 12:32 Last Admin: 01/06/18 03:36 Dose: 30 mg Lorazepam (Ativan) 2 mg SLOW IVP Q1H PRN PRN Reason: Breakthrough agitation Stop: 02/03/18 11:28 Lorazepam (Ativan) 0.5 mg SLOW IVP ONE PRN PRN Reason: .ANXIETY Stop: 01/06/18 12:00 Morphine Sulfate (Morphine) 2 mg SLOW IVP Q2H PRN PRN Reason: Pain Last Admin: 01/06/18 05:27 Dose: 2 mg Ondansetron HCl (Zofran) 4 mg IVP Q6H PRN PRN Reason: Nausea/Vomiting Last Admin: 01/04/18 05:59 Dose: 4 mg Pantoprazole Sodium (Protonix) 40 mg IVP DAILY [facility] Last Admin: 01/06/18 09:17 Dose: 40 mg Propofol (Diprivan) 1,000 mg IV INF PRN; Protocol PRN Reason: TO ACHIEVE GOAL [facility]ASS Stop: 02/03/18 11:28 Last Admin: 01/05/18 04:24 Dose: 1,000 mg Sodium Chloride (Flush - Normal Saline) 10 ml IVF DAILY [facility] Last Admin: 01/06/18 09:17 Dose: 10 ml Sodium Chloride (Flush - Normal Saline) 10 ml IVF PRN PRN PRN Reason: Saline Flush Last Admin: 01/06/18 05:30 Dose: 10 ml
[2018-01-06] MEDS ORDERED: Ventilator Sedation Protocol 1 EACH FS ONE (14:17)
[2018-01-06] MEDS ORDERED: Fentanyl BOLUS 250 ML IVPB PRN (14:19)
[2018-01-06] MEDS ORDERED: Propofol BOLUS 1,000 MG/100 ML VIAL IV PRN (14:19)
[2018-01-06] MEDS ORDERED: DISCONTINUE PREVIOUS NARCOTIC PAIN MEDICATIONS AND BENZODIAZEPINES FS SCH (14:19)
[2018-01-06 14:42] LABS: Actual Bicarbonate (HCO3a) 24.5 mEq/L (22-28); Base Excess (BEa) -0.7 mEq/L (-2.0 to +3.0); CO2 Tension 42.6 mmHg (35.0-45.0); Calcium, Ionized 1.08 mmol/L (1.12-1.30); Carboxyhemoglobin (COHb) 1.2 gm% (0.0-3.0); Hemoglobin (Hb) 8.4 g/dL (12.0-16.0); O2 Tension (PaO2) 68.2 mmHg (> 70.0); Potassium - ABG Lab 2.59 mmol/L (3.70-5.30); pH, Arterial 7.38 (7.35-7.45)
[2018-01-06 14:49] LABS: Puncture Site LRA
[2018-01-06] MEDS ORDERED: Propofol 1,000 MG/100 ML VIAL IV ONE (14:58)
[2018-01-06] MEDS: Dextrose 5% in Water 1,000 ML IV SCH (15:14)
--- NOTE | 2018-01-06 15:17 | EKG ---
Test Reason : Blood Pressure : / mmHG Vent. Rate : 116 BPM Atrial Rate : 116 BPM P-R Int : 164 ms QRS Dur : 080 ms QT Int : 330 ms P-R-T Axes : 031 020 072 degrees QTc Int : 458 ms Sinus tachycardia Otherwise normal ECG Confirmed by RYLADN ENCISO DO ([id number]), multimedia editor HAMIDA COX ([id number]) on 01/06/2018 3:17:07 PM Referred By: Confirmed By:RYLAND ENCISO DO
--- NOTE | 2018-01-06 17:03 | PRG ---
DATE OF SERVICE: 01/06/2018 SUBJECTIVE: Ms. Braga is a 72-year-old woman who is postoperative day #2 status post Alvaro's pr ocedure to treat the necrotic left colon. The patient was extubated postoperatively. Overnight, she has developed worsening respiratory difficulties. She was reintubated this morning. She is on no v asopressor or inotropic support. Urinary output has been marginal; however, responsive to fluid. PHYSICAL EXAMINATION: VITAL SIGNS: When I saw the patient this morning on BiPAP included a blood pressure 143/92, pulse 96 , respiratory rate is 26, temperature is 98.9 degrees Fahrenheit, oxygen saturation 100% on BiPAP. ABDOMEN: Soft, moderately distended. Colostomy was viable and a functional. Incision is intact and clean. NEUROLOGIC: Reveals no focal deficits present. LABORATORY DATA: Today include a CBC with 11,700 white blood cells, hemoglobin and hematocrit 8.6 an d 25.5 respectively. Platelet count is 172,000. Metabolic profile: Sodium 145, potassium 3.7, chlo ride is 120, bicarbonate 20, BUN and creatinine 16.0 and 0.89 respectively. Glucose is 152. Lactic acid today is elevated at 3.1. Magnesium is 3.2, phosphorus is 2.5. Beta natriuretic peptide was el evated at 653.6. IMPRESSION: 1. Postop day #2, status post Alvaro's procedure. 2. Acute postoperative respiratory failure. PLAN: Medical management is deferred to the Critical Care Service. There is no acute surgical indic ation for this patient at this time. Post-intubation recommend. We will initiate trophic enteral nu tritional supplementation via an orogastric tube.
[2018-01-06] MEDS: Propofol 1,000 MG/100 ML VIAL IV PRN ×2 (17:12→21:29)
--- NOTE | 2018-01-06 17:26 | PRG ---
DATE OF SERVICE: 01/06/2018 SUBJECTIVE: Ms. Braga is on BiPAP today. She has been reintubated for possible ARDS according to Dr. Altamirano and patient's nurse. She is now without any history at this time. MEDICATIONS: Reviewed include Lovenox, Toradol, lorazepam, Solu-Medrol, morphine, Zofran, Protonix, Zosyn. PHYSICAL EXAMINATION: VITAL SIGNS: Pulse 92, blood pressure 130/82, respirations 26. She is on BiPAP. ABDOMEN: Nontender. Bowel sounds are quiescent. LUNGS: Clear. LABORATORY DATA AND IMAGING DATA: White count 11.7, hemoglobin 8.6, platelet count 172. A pH 7.41 a nd 7.15 earlier this morning with pO2 of 68, pCO2 of 45. Sodium 145, potassium 3.7, chloride 120, bi carbonate 20, BUN 16, magnesium 3.2, AST of 254 and 40, alkaline phosphatase 85, protein 5.6, BNP 653 . Pathology from resection showed 2 colonic segments above 30 cm each with extensive diffuse mucosal and submucosal necrosis with inflammation consistent with ischemic colitis. ASSESSMENT: The patient had ischemic colitis and was admitted on with acute abdominal pain, lac tic acidosis. Apparently had no imaging and was brought to the operating room. She has had surgical resection of what appeared to be ischemic loops of sigmoid colon, transverse and splenic flexure. S he had an outside CAT scan on 01/03/2018 in [place] which was read as normal except for distal wall thickening in the transverse colon and descending and sigmoid colon which was felt to be consistent w ith ischemic colitis at that time. RECOMMENDATIONS: At this time, management is postoperative. She is having some respiratory issues a nd it is going to be reintubated, it sounds like. With regard to the ischemic colitis in the left colon, this is usually low flow dehydration or use of vasoconstrictors, but not typically issue of arterial blood flow. No further workup is necess ale indicated at this point in time unless there is history of clotting disorders or previous clottin g episodes. We will follow from a distance and defer postoperative care to General Surgery.
[2018-01-06] MEDS ORDERED: Midazolam HCl 2 mg/2 ml Vial SLOW IVP SCH (17:30)
[2018-01-06] MEDS: Enoxaparin Sodium 40 MG/0.4 ML SYRINGE SC SCH (21:19)
--- NOTE | 2018-01-06 23:19 | PRG ---
DATE OF SERVICE: 01/06/2018 SUBJECTIVE: Ms. Braga developed a severe hyperchloremic acidosis. This corrected with bicarbonate this morning. Her initial pH this morning when she developed some respiratory distress was 7.15, CO 2 of 45, pO2 of 68. After bicarbonate, her pH was 7.41, CO2 of 40, pO2 of 72. She had to be started on noninvasive ventilation this morning. Chest radiograph showed diffuse alveo lar infiltrates bilaterally. OBJECTIVE: GENERAL: She continues to be very encephalopathic when she is awake. LUNGS: Remarkable for coarse equal breath sounds. HEART: Regular rhythm. ABDOMEN: Soft. NEUROLOGIC: Nonfocal other than her encephalopathy. LABORATORY DATA: Sodium 145, potassium 3.7, chloride 120, bicarbonate 20, BUN 16, creatinine 0.89. White count 11.7, hemoglobin 8.6, platelets 172,000. Post-intubation, her blood gas, pH 7.38, CO2 of 42, pO2 of 68. IMPRESSION AND PLAN: 1. Status post resection of bowel. 2. Adult respiratory distress syndrome. 3. Hyperchloremic acidosis, most likely secondary to abdominal third spacing of free water. We will continue supportive care. I have recommended reintubation. I met with her and the s on and they were agreeable to the plan. She will likely be ventilated for several days until the inf lammatory process calms down. CRITICAL CARE TIME: Independent of the procedure, 30 minutes.
[2018-01-07] MEDS: Propofol 1,000 MG/100 ML VIAL IV PRN ×5 (01:22→17:26)
--- NOTE | 2018-01-07 01:30 | OP ---
DATE OF PROCEDURE: 01/06/2018 PROCEDURE: Fiberoptic bronchoscopy with intubation. DESCRIPTION OF PROCEDURE: Ms. Braga was sedated with Versed 1 mg. Bite block was placed in her mouth and bronchoscope was introduced into her oral cavity. Vocal cords were visualized. She did have some vocal cord edema that was mild. Scope was passed through her cords into her trachea and an endotracheal tube 7.5 was advanced and secured above the main roxanne. Quick tracheobronchial inspection of the right lower lobe, right middle lobe, right upper lobe, left lower lobe, and left upper lobe revealed no retained aspirated secretions. No foreign bodies, no mass lesions. She tolerated intubation well. She was started on sedation protocol after intubation. NNEKA
[2018-01-07] MEDS: Piperacillin/Tazobactam 4.5 GM in Sodium Chloride 0.9% 100 ML IVPB SCH ×4 (02:08→21:03)
[2018-01-07] MEDS: Acetaminophen 1,000 MG in Premix Bag 1 BAG IVPB SCH ×4 (02:08→21:04)
[2018-01-07 05:00] LABS: ALT (SGPT) 44 U/L (8-55); AST (SGOT) 50 U/L (5-34); Albumin 3.6 g/dL (3.4-4.8); Alkaline Phosphatase 78 U/L (40-150); Anion Gap 12 mmol/L (10-20); BUN (Urea Nitrogen) 17 mg/dL (9.8-20.1); Bilirubin, Total 0.6 mg/dL (0.2-1.2); Calc. Creatinine Clearance 82 mL/min (70-130); Calcium 8.3 mg/dL (7.8-10.44); Carbon Dioxide 24 mmol/L (23-31); Chloride 114 mmol/L (98-107); Estimated GFR-MDRD 61; Globulin 1.9 g/dL (2.4-3.5); Glucose 187 mg/dL (83-110); Protein, Total 5.5 g/dL (6.0-8.3); Sodium 147 mmol/L (136-145)
[2018-01-07 05:03] LABS: Potassium 2.6 mmol/L (3.5-5.1)
[2018-01-07] MEDS: Dextrose 5% in Water 1,000 ML IV SCH ×2 (05:28→21:30)
[2018-01-07] MEDS ORDERED: Potassium Chloride 40 MEQ in Premix Bag 1 BAG IVPB SCH (05:45)
[2018-01-07 05:54] LABS: Band 26 % (5-11); Hemoglobin 8.6 g/dL (12.0-16.0); Lymphocytes 5 % (21-51); MDiff Complete? YES; Mean Corpuscular HGB CONC 32.3 g/dL (32.0-36.0); Mean Corpuscular Hemoglobin 29.7 pg (27.0-31.0); Mean Platelet Volume 8.5 fL (7.4-10.4); Monocytes 2 % (0-10); Neutrophil 67 % (42-75); PLT Morphology Comment Appears Adequate; Platelet Count 187 thou/uL (130-400); RBC Distribution Width 12.1 % (11.5-14.5); White Blood Cell (WBC) Count 9.8 thou/uL (4.8-10.8)
[2018-01-07 07:09] LABS: Base Excess (BEa) -2.1 mEq/L (-2.0 to +3.0); CO2 Tension 34.5 mmHg (35.0-45.0); Calcium, Ionized 1.12 mmol/L (1.12-1.30); Carboxyhemoglobin (COHb) 1.6 gm% (0.0-3.0); Hemoglobin (Hb) 8.4 g/dL (12.0-16.0); O2 Tension (PaO2) 66.8 mmHg (> 70.0); Potassium - ABG Lab 3.23 mmol/L (3.70-5.30); pH, Arterial 7.42 (7.35-7.45)
[2018-01-07 07:11] LABS: ALV-art Gradient 246.575 (0-20); Puncture Site RBA
[2018-01-07] MEDS: Pantoprazole 40 MG VIAL IVP SCH (08:36)
--- NOTE | 2018-01-07 09:07 | RAD ---
PORTABLE CHEST 1 VIEW: Date: 01/07/18 Time: 0515 hours HISTORY: Respiratory failure. FINDINGS/IMPRESSION: Comparison made with exam from previous day. Line and tube placements are unchanged in position. Bilateral air space disease is again seen with in terval worsening on the left. There is interval improvement in aeration of the right lower lung since the last exam. No pneumothorax noted. POS: [facility]
[2018-01-07] MEDS: Lorazepam 2 MG/ML VIAL SLOW IVP PRN (09:30)
[2018-01-07] MEDS: fentaNYL Citrate/PF 2,000 MCG in Sodium Chloride 0.9% 60 ML IV SCH (09:54)
--- NOTE | 2018-01-07 10:13 | PDOC.PN ---
- Subjective Encounter Start Date: 01/07/18 Encounter Start Time: 08:40 pt has bronchoscopy and then she required intubation yesterday, today she is on vent, - Objective Resuscitation Status: Resuscitation Status FULL:Full Resuscitation MAR Reviewed: Yes Vital Signs & Weight: Vital Signs (12 hours) Temp Pulse Resp BP Pulse Ox 01/07/18 08:00 18 01/07/18 07:00 98.0 F 01/07/18 06:39 79 117/69 01/07/18 06:35 78 14 96 01/07/18 06:00 16 01/07/18 04:00 99.1 F 16 01/07/18 03:00 98.2 F 01/07/18 02:29 78 01/07/18 02:28 78 19 94 L 01/07/18 02:00 14 01/07/18 00:00 98.0 F 14 01/06/18 22:51 73 16 92 L Weight Admit Weight 186 lb 8.001 oz Weight 209 lb 7.026 oz Most Recent Monitor Data Heart Rate from ECG 92 NIBP 121/75 NIBP BP-Mean 90 Respiration from ECG 28 SpO2 96 I&O: 01/06/18 01/07/18 01/08/18 06:59 06:59 06:59 Intake Total 4974.6 1252.3 Output Total 1550 2465 70 Balance 3424.6 -1212.7 -70 Result Diagrams: 01/07/18 03:55 01/07/18 03:55 Radiology Reviewed by me: Yes (chest xray reviewed) EKG Reviewed by me: Yes (nsr) Phys Exam - Physical Examination Constitutional: NAD on vent HEENT: PERRLA, sclera anicteric NG tube+ Neck: no JVD, supple Respiratory: no wheezing, no rales, no rhonchi anteriorly Cardiovascular: RRR, no significant murmur, no rub Gastrointestinal: soft wound vac in place, colostomy+ Musculoskeletal: no edema, pulses present unable to assess Lymphatic: no nodes Deviation from normal: unable to assess Skin: no rash, normal turgor Dx/Plan (1) ARDS (adult respiratory distress syndrome) Code(s): J80 - ACUTE RESPIRATORY DISTRESS SYNDROME Status: Acute (2) Acute bacterial peritonitis Code(s): K65.9 - PERITONITIS, UNSPECIFIED Status: Acute Comment: on Zosyn, follow culture (3) Acute respiratory insufficiency, postoperative Code(s): J95.89 - OTH POSTPROC COMPLICATIONS AND DISORDERS OF RESP SYS, NEC Status: Acute Comment: on ventilator now (4) Anemia due to blood loss, acute Code(s): D62 - ACUTE POSTHEMORRHAGIC ANEMIA Status: Acute Comment: monitor CBC (5) Gangrene of colon Code(s): K55.049 - ACUTE INFARCTION OF LARGE INTESTINE, EXTENT UNSPECIFIED Status: Acute Comment: s/p colectomy (6) Hypokalemia Code(s): E87.6 - HYPOKALEMIA Status: Acute (7) Hypomagnesemia Code(s): E83.42 - HYPOMAGNESEMIA Status: Acute (8) Hypophosphatemia Code(s): E83.39 - OTHER DISORDERS OF PHOSPHORUS METABOLISM Status: Acute (9) Lactic acidosis Code(s): E87.2 - ACIDOSIS Status: Acute (10) Severe sepsis Code(s): A41.9 - SEPSIS, UNSPECIFIED ORGANISM; R65.20 - SEVERE SEPSIS WITHOUT SEPTIC SHOCK Status: Acute (11) Depression Code(s): F32.9 - MAJOR DEPRESSIVE DISORDER, SINGLE EPISODE, UNSPECIFIED Status : Chronic (12) Dyslipidemia Code(s): E78.5 - HYPERLIPIDEMIA, UNSPECIFIED Status: Chronic (13) Hypertension Code(s): I10 - ESSENTIAL (PRIMARY) HYPERTENSION Status: Chronic (14) Obesity (BMI 30.0-34.9) Code(s): E66.9 - OBESITY, UNSPECIFIED Status: Chronic (15) Metabolic acidosis Code(s): E87.2 - ACIDOSIS Status: Acute (16) Pulmonary vascular congestion Code(s): R09.89 - OTH SYMPTOMS AND SIGNS INVOLVING THE CIRC AND RESP SYSTEMS Status: Acute (17) Delirium Code(s): R41.0 - DISORIENTATION, UNSPECIFIED Status: Acute - Plan cont current plan of care, moffett catheter, continue antibiotics, respiratory therapy, DVT proph w/lovenox * continue NG tube feeding * wound care with wound vac * medication reviewed as below * symptomatic treatment * vent as per pulmonary * continue zosyn * replaced potassium. Review of Systems - Review of Systems Other: unable to review due to intubated status - Medications/Allergies Allergies/Adverse Reactions: Allergies Allergy/AdvReac Type Severity Reaction Status Date / Time egg Allergy Mild Verified 10/08/13 11:43 aspirin Allergy Verified 10/09/13 11:42 ibuprofen Allergy Verified 10/09/13 11:42 Medications: Current Medications Albuterol/Ipratropium (Duoneb) 3 ml NEB [id number] [facility] Last Admin: 01/07/18 06:35 Dose: 3 ml Enoxaparin Sodium (Lovenox) 40 mg SC 2100 [facility] Last Admin: 01/06/18 21:19 Dose: 40 mg Guaifenesin (Robitussin Sf) 200 mg PO Q6H PRN PRN Reason: Cough Last Admin: 01/06/18 04:02 Dose: 200 mg Dextrose/Water (D5w) 1,000 mls @ 75 mls/hr IV .[id number] [facility] Last Admin: 01/07/18 05:28 Dose: 1,000 mls Fentanyl Citrate 2,000 mcg/ (Sodium Chloride) 100 mls @ 0 mls/hr IV INF [facility]; Protocol Stop: 02/05/18 14:19 Last Admin: 01/07/18 09:54 Dose: 100 mls Fentanyl Citrate (Fentanyl Bolus) 250 mls @ 0 mls/hr IVPB PRN PRN PRN Reason: Breakthrough pain/agitation Stop: 02/05/18 14:19 Piperacillin Sod/Tazobactam (Sod 4.5 gm/ Sodium Chloride) 100 mls @ 200 mls/hr IVPB 0300,0900,1500,2100 [facility] Last Admin: 01/07/18 08:37 Dose: 100 mls Acetaminophen 1,000 mg/ Device 100 mls @ 400 mls/hr IVPB 0300,0900,1500,2100 [facility] Stop: 01/07/18 21:01 Last Admin: 01/07/18 08:36 Dose: 100 mls Ketorolac Tromethamine (Toradol) 30 mg IVP Q6H PRN PRN Reason: Pain Stop: 01/10/18 12:32 Last Admin: 01/06/18 03:36 Dose: 30 mg Lorazepam (Ativan) 2 mg SLOW IVP Q1H PRN PRN Reason: Breakthrough agitation Stop: 02/03/18 11:28 Last Admin: 01/07/18 09:30 Dose: 2 mg Lorazepam (Ativan) 2 mg SLOW IVP Q1H PRN PRN Reason: Breakthrough agitation Stop: 02/05/18 14:19 Methylprednisolone Sodium Succinate (Solu-Medrol) 20 mg IVP Q6HR [facility] Last Admin: 01/07/18 05:27 Dose: 20 mg Morphine Sulfate (Morphine) 2 mg SLOW IVP Q2H PRN PRN Reason: Pain Last Admin: 01/06/18 05:27 Dose: 2 mg Morphine Sulfate (Morphine Sulfate) 2 mg SLOW IVP Q1H PRN PRN Reason: BREAKTHROUGH PAIN/AGITATION Stop: 02/05/18 14:19 Discontinue Previous Narcotic Pain Medications And Benzodiazepines 1 each FS .ONE [facility] Stop: 02/05/18 14:19 Ondansetron HCl (Zofran) 4 mg IVP Q6H PRN PRN Reason: Nausea/Vomiting Last Admin: 01/04/18 05:59 Dose: 4 mg Pantoprazole Sodium (Protonix) 40 mg IVP DAILY [facility] Last Admin: 01/07/18 08:36 Dose: 40 mg Propofol (Diprivan) 1,000 mg IV INF PRN; Protocol PRN Reason: TO ACHIEVE GOAL RASS Stop: 02/03/18 11:28 Last Admin: 01/07/18 08:37 Dose: 1,000 mg Propofol (Diprivan) 1,000 mg IV INF PRN; Protocol PRN Reason: TO ACHIEVE GOAL RASS Stop: 02/05/18 14:19 Propofol (Diprivan Bolus) 20 mg IV Q5MIN PRN PRN Reason: BREAKTHROUGH AGITATION Stop: 02/05/18 14:19 Sodium Chloride (Flush - Normal Saline) 10 ml IVF DAILY [facility] Last Admin: 01/07/18 08:36 Dose: 10 ml Sodium Chloride (Flush - Normal Saline) 10 ml IVF PRN PRN PRN Reason: Saline Flush Last Admin: 01/06/18 05:30 Dose: 10 ml
--- NOTE | 2018-01-07 15:14 | PRG ---
DATE OF SERVICE: 01/07/2018. SUBJECTIVE: Ms. Braga remains intubated. Bronchoscopy yesterday showed no secretions in the lung. Chest x-ray, this morning, improvement in aeration in the right lower lung with no overt pneumonia is noted. MEDICATION LIST: Reviewed. PHYSICAL EXAMINATION: VITAL SIGNS: Temperature is 98, pulse 88, blood pressure 132/84. LUNGS: Clear. GENERAL: Patient is intubated and sedated. ABDOMEN: Soft and nontender. LABORATORY STUDIES: White count is 9.8, down from 11.7; hemoglobin is 8.6, platelet count is 187. S odium 147, potassium 3.6, chloride 144, glucose 108, magnesium 2.7, AST 50, ALT 44, alkaline phosphat ase 78. ASSESSMENT: 1. Ischemic colitis, left-sided, status post colon resection. Pathology confirms a clinical suspici on, no signs of peritoneal sepsis at this time. There is a wound VAC in place, which appears to be f unctioning well. There is an ostomy that is pink and moist. 2. Respiratory failure, back on the ventilator. RECOMMENDATIONS: 1. Continue empiric antibiotics for ischemic colitis, although this is equivocal are helpful i n this setting, but with necrosis and surgery for repair of her acute abdomen, we would continue that until all cultures are back. 2. Replace potassium as per replacement protocol. We will follow along with you.
--- NOTE | 2018-01-07 18:47 | PRG ---
DATE OF SERVICE: 01/07/2018 SUBJECTIVE: Yesenia Braga is sedated for ventilation. She will move her extremities. OBJECTIVE: VITAL SIGNS: She is afebrile, heart rate is 97, blood pressure 110/72, respiratory rates per mechani komal ventilation. LUNGS: Remarkable for coarse equal breath sounds. HEART: Regular rhythm. ABDOMEN: Soft and distended. EXTREMITIES: Without asymmetry. LABORATORY DATA: White count 9.8, hemoglobin 8.6, platelets 187,000. Sodium 147, potassium 3.6, chloride 114, bicarbonate 24, BUN 17, creatinine 0.9. IMPRESSION: 1. Status post laparotomy. 2. Adult respiratory distress syndrome. 3. Reactive pleural effusions. 4. Hyperchloremic acidosis, improved. 5. Hypokalemia. 6. Minimal elevation of liver enzymes. 7. Respiratory failure requiring mechanical ventilation. 8. ICU psychosis leading up to respiratory failure requiring mechanical ventilation. PLAN: Continue supportive care, nutritional support, ventilatory support. She is not weanable and w ill be for probably several days. Critical care time, 30 minutes.
[2018-01-07] MEDS: Enoxaparin Sodium 40 MG/0.4 ML SYRINGE SC SCH (21:04)
[2018-01-08] MEDS: Propofol 1,000 MG/100 ML VIAL IV PRN ×4 (01:54→21:05)
[2018-01-08] MEDS: Piperacillin/Tazobactam 4.5 GM in Sodium Chloride 0.9% 100 ML IVPB SCH ×4 (02:11→21:20)
[2018-01-08] MEDS: fentaNYL Citrate/PF 2,000 MCG in Sodium Chloride 0.9% 60 ML IV SCH (05:39)
[2018-01-08 05:41] LABS: Anion Gap 8 mmol/L (10-20); BUN (Urea Nitrogen) 20 mg/dL (9.8-20.1); Calc. Creatinine Clearance 0 mL/min (70-130); Carbon Dioxide 26 mmol/L (23-31); Chloride 111 mmol/L (98-107); Estimated GFR-MDRD 70; Glucose 151 mg/dL (83-110); Potassium 3.2 mmol/L (3.5-5.1); Sodium 142 mmol/L (136-145)
[2018-01-08 06:52] LABS: Hemoglobin 8.8 g/dL (12.0-16.0); Mean Corpuscular Hemoglobin 29.7 pg (27.0-31.0); Mean Corpuscular Volume 92.9 fL (78.0-98.0); Mean Platelet Volume 8.6 fL (7.4-10.4); Platelet Count 202 thou/uL (130-400); RBC Distribution Width 12.4 % (11.5-14.5); Red Blood Cell (RBC) Count 2.97 mill/uL (4.20-5.40)
[2018-01-08 06:55] LABS: Actual Bicarbonate (HCO3a) 24.8 mEq/L (22-28); Base Excess (BEa) -0.3 mEq/L (-2.0 to +3.0); CO2 Tension 42.3 mmHg (35.0-45.0); Calcium, Ionized 1.16 mmol/L (1.12-1.30); Carboxyhemoglobin (COHb) 1.4 gm% (0.0-3.0); Hemoglobin (Hb) 9.1 g/dL (12.0-16.0); O2 Tension (PaO2) 70.3 mmHg (> 70.0); Potassium - ABG Lab 3.29 mmol/L (3.70-5.30); pH, Arterial 7.39 (7.35-7.45)
[2018-01-08 06:56] LABS: Puncture Site LR
[2018-01-08 06:57] LABS: ALV-art Gradient 233.325 (0-20)
[2018-01-08 07:43] LABS: Band 10 % (5-11); Lymphocytes 4 % (21-51); MDiff Complete? YES; Monocytes 3 % (0-10); Neutrophil 81 % (42-75); Polychromasia SLIGHT = 2-3 cells (100X) (0-2/hpf); Reactive Lymphocytes 2 % (0-10)
--- NOTE | 2018-01-08 08:40 | PRG ---
DATE OF SERVICE: 01/08/2018 This morning she is intubated on the vent. Sedated. She was reintubated with progressive respirator y failure, diffuse pulmonary infiltrates. PHYSICAL EXAMINATION: VITAL SIGNS: Blood pressure 144/87, sats are 95, respirations 19, pulse is 82. NEURO: Neurologically she is sedated. CHEST: Decreased breath sounds, bilateral rhonchi. CARDIAC: Normal S1-S2. No gallops. ABDOMEN: Soft. No masses. Abdomen is distended. IMPRESSION: 1. Respiratory failure. 2. Aspiration. 3. Diffuse pulmonary infiltrates. 4. O2 status post lap, ischemic bowel. PLAN: At this stage, she is not weanable. She is on steroids, Zosyn, neb treatments, supportive car e. Endotracheal tube is in the right main stem bronchus. We will pull it back. One-half hour critical care time.
[2018-01-08] MEDS: Dextrose 5% in Water 1,000 ML IV SCH (08:52)
[2018-01-08] MEDS: Pantoprazole 40 MG VIAL IVP SCH (08:53)
--- NOTE | 2018-01-08 08:53 | RAD ---
AP VIEW OF THE CHEST: INDICATION: History of intubation; daily CCU examination. COMPARISON: Prior exam dated 01/07/18. FINDINGS: The ET tube tip projects down the right mainstem bronchus. Recommend retraction of 3 cm. The centra l edema pattern and cardiomegaly with similar. Bilateral pleural effusions appear similar. Bibasila r opacities likely reflecting atelectasis are similar. No pneumothorax is evident. IMPRESSION: Right mainstem intubation. Recommend retraction of 3 cm. The findings were called to Radha Catalan R.N., at 7:50 a.m. o 01/08/18. The remainder of the examination appears unchanged. Right subclavian central venous catheter and gas tric catheter are unchanged. No pneumothorax is demonstrated POS: [facility]
[2018-01-08] MEDS ORDERED: Potassium Chloride 40 MEQ in Premix Bag 1 BAG IVPB SCH (09:00)
--- NOTE | 2018-01-08 10:24 | PDOC.PN ---
- Subjective Encounter Start Date: 01/08/18 Encounter Start Time: 09:10 pt is on ventilator, she is sedated, Patient seen and examined. No overnight events - Objective Resuscitation Status: Resuscitation Status FULL:Full Resuscitation MAR Reviewed: Yes Vital Signs & Weight: Vital Signs (12 hours) Temp Pulse Resp BP Pulse Ox 01/08/18 08:31 99 129/78 01/08/18 08:00 99.1 F 01/08/18 05:59 19 01/08/18 04:00 98.4 F 14 01/08/18 02:00 19 01/08/18 01:20 85 14 94 L 01/08/18 01:00 99 01/08/18 00:00 98.7 F 14 01/07/18 22:28 82 14 95 Weight Admit Weight 186 lb 8.001 oz Weight 3.383 oz Most Recent Monitor Data Heart Rate from ECG 103 NIBP 154/87 NIBP BP-Mean 109 Respiration from ECG 14 SpO2 95 I&O: 01/07/18 01/08/18 01/09/18 06:59 06:59 06:59 Intake Total 1252.3 3370 Output Total 2495 975 205 Balance -1242.7 2395 -205 Result Diagrams: 01/08/18 04:05 01/08/18 04:05 Radiology Reviewed by me: Yes (chest xray reviewed) EKG Reviewed by me: Yes (nsr) Phys Exam - Physical Examination Constitutional: NAD on ventilator, HEENT: PERRLA, sclera anicteric Neck: no JVD, supple Respiratory: no wheezing, no rales, no rhonchi anteriorly Cardiovascular: RRR, no significant murmur, no rub Gastrointestinal: soft wound vac in place, colostomy+ Musculoskeletal: no edema, pulses present moffett+ unable to assess due to intubated Lymphatic: no nodes Skin: no rash, normal turgor Dx/Plan (1) ARDS (adult respiratory distress syndrome) Code(s): J80 - ACUTE RESPIRATORY DISTRESS SYNDROME Status: Acute (2) Acute bacterial peritonitis Code(s): K65.9 - PERITONITIS, UNSPECIFIED Status: Acute Comment: on Zosyn, follow culture (3) Acute respiratory insufficiency, postoperative Code(s): J95.89 - OTH POSTPROC COMPLICATIONS AND DISORDERS OF RESP SYS, NEC Status: Acute Comment: on ventilator now (4) Anemia due to blood loss, acute Code(s): D62 - ACUTE POSTHEMORRHAGIC ANEMIA Status: Acute Comment: monitor CBC (5) Gangrene of colon Code(s): K55.049 - ACUTE INFARCTION OF LARGE INTESTINE, EXTENT UNSPECIFIED Status: Acute Comment: s/p colectomy (6) Hypokalemia Code(s): E87.6 - HYPOKALEMIA Status: Acute (7) Hypomagnesemia Code(s): E83.42 - HYPOMAGNESEMIA Status: Acute (8) Hypophosphatemia Code(s): E83.39 - OTHER DISORDERS OF PHOSPHORUS METABOLISM Status: Acute (9) Lactic acidosis Code(s): E87.2 - ACIDOSIS Status: Acute (10) Severe sepsis Code(s): A41.9 - SEPSIS, UNSPECIFIED ORGANISM; R65.20 - SEVERE SEPSIS WITHOUT SEPTIC SHOCK Status: Acute (11) Depression Code(s): F32.9 - MAJOR DEPRESSIVE DISORDER, SINGLE EPISODE, UNSPECIFIED Status : Chronic (12) Dyslipidemia Code(s): E78.5 - HYPERLIPIDEMIA, UNSPECIFIED Status: Chronic (13) Hypertension Code(s): I10 - ESSENTIAL (PRIMARY) HYPERTENSION Status: Chronic (14) Obesity (BMI 30.0-34.9) Code(s): E66.9 - OBESITY, UNSPECIFIED Status: Chronic (15) Metabolic acidosis Code(s): E87.2 - ACIDOSIS Status: Acute (16) Pulmonary vascular congestion Code(s): R09.89 - OTH SYMPTOMS AND SIGNS INVOLVING THE CIRC AND RESP SYSTEMS Status: Acute (17) Delirium Code(s): R41.0 - DISORIENTATION, UNSPECIFIED Status: Acute - Plan cont current plan of care, continue antibiotics, respiratory therapy, DVT proph w/lovenox * I have replaced potassium * ET tube adjusted by Pulmonary * ventilator as per pulmonary * medication reviewed as below * symptomatic treatment * continue zosyn * wound care * post operative care as per surgeon. Review of Systems - Review of Systems Other: unable to review due to intubated status - Medications/Allergies Allergies/Adverse Reactions: Allergies Allergy/AdvReac Type Severity Reaction Status Date / Time egg Allergy Mild Verified 10/08/13 11:43 aspirin Allergy Verified 10/09/13 11:42 ibuprofen Allergy Verified 10/09/13 11:42 Medications: Current Medications Albuterol/Ipratropium (Duoneb) 3 ml NEB [id number] [facility] Last Admin: 01/08/18 08:30 Dose: 3 ml Enoxaparin Sodium (Lovenox) 40 mg SC 2100 [facility] Last Admin: 01/07/18 21:04 Dose: 40 mg Guaifenesin (Robitussin Sf) 200 mg PO Q6H PRN PRN Reason: Cough Last Admin: 01/06/18 04:02 Dose: 200 mg Fentanyl Citrate 2,000 mcg/ (Sodium Chloride) 100 mls @ 0 mls/hr IV INF [facility]; Protocol Stop: 02/05/18 14:19 Last Admin: 01/08/18 05:39 Dose: 100 mls Fentanyl Citrate (Fentanyl Bolus) 250 mls @ 0 mls/hr IVPB PRN PRN PRN Reason: Breakthrough pain/agitation Stop: 02/05/18 14:19 Piperacillin Sod/Tazobactam (Sod 4.5 gm/ Sodium Chloride) 100 mls @ 200 mls/hr IVPB 0300,0900,1500,2100 [facility] Last Admin: 01/08/18 08:53 Dose: 100 mls Potassium Chloride 40 meq/ (Device) 100 mls @ 25 mls/hr IVPB NOW [facility] Stop: 01/08/18 13:00 Last Admin: 01/08/18 09:57 Dose: 100 mls Potassium Chloride/Sodium Chloride (1/2 Ns W/Kcl 20 Meq) 1,000 mls @ 0 mls/hr IV .Q0M [facility] Ketorolac Tromethamine (Toradol) 30 mg IVP Q6H PRN PRN Reason: Pain Stop: 01/10/18 12:32 Last Admin: 01/06/18 03:36 Dose: 30 mg Lorazepam (Ativan) 2 mg SLOW IVP Q1H PRN PRN Reason: Breakthrough agitation Stop: 02/03/18 11:28 Last Admin: 01/07/18 09:30 Dose: 2 mg Lorazepam (Ativan) 2 mg SLOW IVP Q1H PRN PRN Reason: Breakthrough agitation Stop: 02/05/18 14:19 Methylprednisolone Sodium Succinate (Solu-Medrol) 20 mg IVP Q6HR [facility] Last Admin: 01/08/18 06:23 Dose: 20 mg Morphine Sulfate (Morphine) 2 mg SLOW IVP Q2H PRN PRN Reason: Pain Last Admin: 01/06/18 05:27 Dose: 2 mg Morphine Sulfate (Morphine Sulfate) 2 mg SLOW IVP Q1H PRN PRN Reason: BREAKTHROUGH PAIN/AGITATION Stop: 02/05/18 14:19 Discontinue Previous Narcotic Pain Medications And Benzodiazepines 1 each FS .ONE [facility] Stop: 02/05/18 14:19 Ondansetron HCl (Zofran) 4 mg IVP Q6H PRN PRN Reason: Nausea/Vomiting Last Admin: 01/04/18 05:59 Dose: 4 mg Pantoprazole Sodium (Protonix) 40 mg IVP DAILY [facility] Last Admin: 01/08/18 08:53 Dose: 40 mg Propofol (Diprivan) 1,000 mg IV INF PRN; Protocol PRN Reason: TO ACHIEVE GOAL RASS Stop: 02/03/18 11:28 Last Admin: 01/08/18 01:54 Dose: 1,000 mg Propofol (Diprivan) 1,000 mg IV INF PRN; Protocol PRN Reason: TO ACHIEVE GOAL RASS Stop: 02/05/18 14:19 Propofol (Diprivan Bolus) 20 mg IV Q5MIN PRN PRN Reason: BREAKTHROUGH AGITATION Stop: 02/05/18 14:19 Sodium Chloride (Flush - Normal Saline) 10 ml IVF DAILY [facility] Last Admin: 01/08/18 08:53 Dose: 10 ml Sodium Chloride (Flush - Normal Saline) 10 ml IVF PRN PRN PRN Reason: Saline Flush Last Admin: 01/06/18 05:30 Dose: 10 ml
[2018-01-08] MEDS: 1/2 NS w/KCL 20 mEq 1,000 ML IV SCH (13:16)
[2018-01-08] MEDS: Lorazepam 2 MG/ML VIAL SLOW IVP PRN (13:52)
--- NOTE | 2018-01-08 20:16 | PRG ---
DATE OF SERVICE: 01/08/2018 SUBJECTIVE: Yesenia Braga is doing well today. She had to be re-intubated over the weekend. OBJECTIVE: VITAL SIGNS: Heart rate 93, blood pressure 122/70. LUNGS: Clear to auscultation. CARDIAC: Regular rate and rhythm without murmur or gallop. ABDOMEN: Soft. Colostomy healthy. Wound Care to change her wound VAC today. EXTREMITIES: Unremarkable. Edema decreased. LABORATORY DATA: White count 11, hemoglobin 8. Basic metabolic profile: Sodium 142, potassium 3.2, chloride 111, glucose 151. ASSESSMENT AND PLAN: 1. Re-intubations. Diuresis now. Weaned from the vent per pulmonary. 2. Status post laparotomy, colostomy for ischemic gangrenous splenic flexure, Alvaro's pouch colos jesus. 3. Respiratory failure. 4. Obesity. 5. Hypokalemia. Replace.
[2018-01-08] MEDS: Enoxaparin Sodium 40 MG/0.4 ML SYRINGE SC SCH (21:20)
[2018-01-09] MEDS: Piperacillin/Tazobactam 4.5 GM in Sodium Chloride 0.9% 100 ML IVPB SCH ×4 (02:10→20:34)
[2018-01-09] MEDS: Propofol 1,000 MG/100 ML VIAL IV PRN ×3 (02:18→15:23)
[2018-01-09] MEDS: fentaNYL Citrate/PF 2,000 MCG in Sodium Chloride 0.9% 60 ML IV SCH ×2 (04:28→22:05)
[2018-01-09 04:45] LABS: Anion Gap 10 mmol/L (10-20); BUN (Urea Nitrogen) 23 mg/dL (9.8-20.1); Calc. Creatinine Clearance 0 mL/min (70-130); Calcium 8.7 mg/dL (7.8-10.44); Carbon Dioxide 26 mmol/L (23-31); Chloride 111 mmol/L (98-107); Estimated GFR-MDRD 71; Glucose 137 mg/dL (83-110); Sodium 143 mmol/L (136-145)
[2018-01-09 04:52] LABS: Band 5 % (5-11); Hemoglobin 9.1 g/dL (12.0-16.0); Lymphocytes 9 % (21-51); MDiff Complete? YES; Mean Corpuscular HGB CONC 32.2 g/dL (32.0-36.0); Mean Corpuscular Hemoglobin 29.7 pg (27.0-31.0); Mean Corpuscular Volume 92.3 fL (78.0-98.0); Mean Platelet Volume 8.2 fL (7.4-10.4); Monocytes 5 % (0-10); Neutrophil 81 % (42-75); Platelet Count 249 thou/uL (130-400); RBC Distribution Width 12.4 % (11.5-14.5); Red Blood Cell (RBC) Count 3.06 mill/uL (4.20-5.40); White Blood Cell (WBC) Count 10.4 thou/uL (4.8-10.8)
[2018-01-09 06:25] LABS: Actual Bicarbonate (HCO3a) 27.1 mEq/L (22-28); Base Excess (BEa) 2.9 mEq/L (-2.0 to +3.0); CO2 Tension 39.7 mmHg (35.0-45.0); Calcium, Ionized 1.14 mmol/L (1.12-1.30); Carboxyhemoglobin (COHb) 1.8 gm% (0.0-3.0); Hemoglobin (Hb) 9.2 g/dL (12.0-16.0); Potassium - ABG Lab 3.88 mmol/L (3.70-5.30); pH, Arterial 7.45 (7.35-7.45)
[2018-01-09 06:26] LABS: O2 Tension (PaO2) 59.1 mmHg (> 70.0)
[2018-01-09 06:27] LABS: ALV-art Gradient 212.125 (0-20); Puncture Site LR
--- NOTE | 2018-01-09 08:23 | PRG ---
DATE OF SERVICE: 01/09/2018 This morning she is intubated on the vent, fentanyl and Diprivan. PHYSICAL EXAMINATION: VITAL SIGNS: Blood pressure 159/92, O2 sats are 96%, respirations 18. I's and O's 3370 in, 975 out. CHEST: Minimal rhonchi. CARDIAC: Sinus tachycardia. ABDOMEN: Distended, soft. LABORATORY: PO2 was only 59, pCO2 39%, 45 on a rate of 10, 45 and a PEEP of 7. Electrolytes are nor mal. BNP is only 187. White count 10,000, platelet count normal. IMPRESSION: 1. Status post lap, ischemic bowel. 2. Respiratory failure. 3. Aspiration. 4. Adult respiratory distress syndrome. PLAN: She is clearly not weanable at this stage. I am concerned about the extent of her hypoxemia. Continue nutrition, PT and supportive care. We will consider a diagnostic bronchoscopy. One-half hour critical care time.
--- NOTE | 2018-01-09 08:26 | RAD ---
CHEST ONE VIEW: History: Dyspnea. Follow up. Comparison: 01-08-18 FINDINGS: Cardiac silhouette is magnified and partially obscured by patchy areas of dense infiltrate throughout each lung that are similar in appearance to the prior study. Pulmonary vasculature is engorged. Medi astinum is midline. Tip of the endotracheal catheter now lies just above the level of the roxanne. Oth er lines and tubes are unchanged in position. No evidence of pneumothorax. IMPRESSION: 1. Tip of the endotracheal catheter remains somewhat low, just above the level of the roxanne. Please consider withdrawing the catheter 2 cm for better positioning. 2. Pulmonary vascular congestion and other findings are otherwise stable. POS: [facility]
[2018-01-09] MEDS: Pantoprazole 40 MG VIAL IVP SCH (08:57)
[2018-01-09] MEDS: Lorazepam 2 MG/ML VIAL SLOW IVP PRN (20:34)
[2018-01-09] MEDS: Enoxaparin Sodium 40 MG/0.4 ML SYRINGE SC SCH (20:35)
--- NOTE | 2018-01-09 20:43 | PRG ---
DATE OF SERVICE: 01/09/2018 SUBJECTIVE: Ms. Braga is on ventilator. OBJECTIVE: VITAL SIGNS: Blood pressure 178/100, heart rate 88. LUNGS: Clear to auscultation. CARDIAC: Regular rate and rhythm without murmur or gallop. ABDOMEN: Soft. VAC wound midline. Good bowel sounds. Healthy colostomy stool in her colostomy bag . She is on low dose tube feedings. LABORATORY DATA: Chest x-ray revealed some vascular congestion, which is stable. White count 10, he moglobin 9.1, sodium 143, potassium 4.0, BUN 23, creatinine 0.79. ASSESSMENT AND PLAN: 1. The patient is doing well. Respiratory failure. Continue ventilatory weaning, status post colec jesus, colostomy. Await GI function. 2. Deconditioning, expect rehab stay once extubated and stable. 3. Malnutrition enteral feedings. We will increase dietary consult for recommendations.
[2018-01-10] MEDS: Propofol 1,000 MG/100 ML VIAL IV PRN ×2 (00:02→08:04)
[2018-01-10] MEDS: Piperacillin/Tazobactam 4.5 GM in Sodium Chloride 0.9% 100 ML IVPB SCH ×4 (02:49→21:25)
[2018-01-10 05:27] LABS: Anion Gap 10 mmol/L (10-20); BUN (Urea Nitrogen) 22 mg/dL (9.8-20.1); Calc. Creatinine Clearance 114 mL/min (70-130); Calcium 8.4 mg/dL (7.8-10.44); Carbon Dioxide 28 mmol/L (23-31); Chloride 109 mmol/L (98-107); Estimated GFR-MDRD 88; Glucose 122 mg/dL (83-110); Potassium 4.1 mmol/L (3.5-5.1); Sodium 143 mmol/L (136-145)
[2018-01-10 06:15] LABS: Band 10 % (5-11); Hemoglobin 8.6 g/dL (12.0-16.0); Lymphocytes 10 % (21-51); MDiff Complete? YES; Mean Corpuscular HGB CONC 32.5 g/dL (32.0-36.0); Mean Corpuscular Volume 92.4 fL (78.0-98.0); Mean Platelet Volume 7.8 fL (7.4-10.4); Monocytes 7 % (0-10); Neutrophil 73 % (42-75); PLT Morphology Comment Appears Adequate; Platelet Count 194 thou/uL (130-400); RBC Distribution Width 12.6 % (11.5-14.5); RBC Morphology Normal; Red Blood Cell (RBC) Count 2.86 mill/uL (4.20-5.40); White Blood Cell (WBC) Count 8.9 thou/uL (4.8-10.8)
[2018-01-10 07:48] LABS: Actual Bicarbonate (HCO3a) 28.5 mEq/L (22-28); Base Excess (BEa) 3.4 mEq/L (-2.0 to +3.0); CO2 Tension 45.6 mmHg (35.0-45.0); Carboxyhemoglobin (COHb) 1.9 gm% (0.0-3.0); Hemoglobin (Hb) 8.8 g/dL (12.0-16.0); O2 Tension (PaO2) 78.2 mmHg (> 70.0); Potassium - ABG Lab 4.13 mmol/L (3.70-5.30); pH, Arterial 7.41 (7.35-7.45)
[2018-01-10 07:52] LABS: Puncture Site RR
[2018-01-10] MEDS: Pantoprazole 40 MG VIAL IVP SCH (08:03)
--- NOTE | 2018-01-10 08:39 | RAD ---
AP CHEST: History: Ventilator dependent patient. Date: 01-10-18 Comparison: 01-09-18 FINDINGS: AP chest demonstrates nasogastric tube in place. Endotracheal tube is in good position. A right subcl meliton central line is seen. Bilateral airspace opacities seen, unchanged since the previous exam. This may represent possible rosi ateral pneumonia. Some elevation of the right hemidiaphragm is seen. IMPRESSION: Stable AP chest with airspace opacities unchanged. Lines and tubes are in good position, unchanged. POS: [facility]
--- NOTE | 2018-01-10 12:31 | OP ---
DATE OF PROCEDURE: 01/10/2018 SURGEON: Dr. Earl Orantes PROCEDURE: Bronchoscopy with lavage. INDICATIONS: Acute respiratory distress syndrome, diffuse pulmonary infiltrates. PROCEDURE IN DETAIL: After informed consent, flexible bronchoscope was used after an adaptor was radha nicolas in the endotracheal tube, distal trachea was normal. Maryjo was sharp. The right lung was inspe cted initially. There was some blood arising from the basilar segments, probably from suctioning, bu t otherwise the right upper, middle and right lower lobe had no endobronchial disease or pus. The ar ea was lavaged until clear. Left lung was inspected thereafter, the left upper and left lower lobe o nce again were visualized without any obvious endobronchial obstruction, blood or pus. The patient t olerated the procedure well. The washings will be sent for Gram stain and C&S.
--- NOTE | 2018-01-10 12:42 | PRG ---
DATE OF SERVICE: 01/10/2018 SUBJECTIVE: This morning, remains intubated in the vent, Diprivan and fentanyl. Remains very agitat ed, we may need to try to cut back on some of the Diprivan. PHYSICAL EXAMINATION: VITAL SIGNS: Blood pressure 160/90, sats are 95, respirations 18, temperature 98. CHEST: Reveals extensive rhonchi and crackles. CARDIAC: Sinus tachycardia. ABDOMEN: Distended. NEUROLOGICAL: Sedated. LABORATORY DATA AND X-RAY FINDINGS: White count 8000, H&H is 8 and 26, platelet count 195, 73 segs, 10 bands. PO2 of 78, pCO2 of 45, pH of 7.41, rate of 10, 50%, PEEP of 8. X-ray showed diffuse infil trate. Electrolytes are normal. IMPRESSION: 1. Respiratory failure, adult respiratory distress syndrome. 2. Status post lap, ischemic bowel. 3. Metabolic encephalopathy. PLAN: The patient is not weanable at this stage. Diagnostic bronchoscopy later. Continue PT, nutri tion. One-half hour critical care time.
[2018-01-10] MEDS: fentaNYL Citrate/PF 2,000 MCG in Sodium Chloride 0.9% 60 ML IV SCH (12:56)
--- NOTE | 2018-01-10 15:12 | PRG ---
DATE OF SERVICE: 01/10/2018 SUBJECTIVE: The patient is doing well on the ventilator. Dr. Orantes performed bronchoscopy today. He r secretions are decreased. Chest x-ray revealed changes consistent with adult respiratory distress syndrome. The patient is tolerating her tube feedings. Nurse reports to me that she is at her targe t rate. OBJECTIVE: LUNGS: Coarse rhonchi, no wheezing. CARDIAC: Regular rate and rhythm. ABDOMEN: Soft, nontender. Wound VAC in place. Colostomy: Excellent stool output. EXTREMITIES: Unremarkable. LABORATORY DATA: White count 8, hemoglobin 8.6. Basic metabolic profile unremarkable. ASSESSMENT AND PLAN: Doing well. Continue intravenous fluids. Tube feedings. Wean ventilator is a ble per Pulmonary Critical Care Medicine. Continue tube feedings of physical activity. The patient is doing well from a surgical standpoint. We will view her wound next wound VAC change.
--- NOTE | 2018-01-10 20:55 | PDOC.PN ---
- Subjective Encounter Start Date: 01/10/18 Encounter Start Time: 16:20 Subjective: f/u for acute resp failure on Precedex and mech ventilation. s/p laparotomy -: for ischemic gangrenous colon with resection POD #6. Wound vac in place -: Tolerating TF's currently 15ml/h - Objective Resuscitation Status: Resuscitation Status FULL:Full Resuscitation MAR Reviewed: Yes Vital Signs & Weight: Vital Signs (12 hours) Pulse Pulse Pulse Resp BP BP BP 01/10/18 20:00 16 01/10/18 18:58 87 158/87 H 01/10/18 18:00 22 H 01/10/18 16:00 16 01/10/18 15:26 85 150/80 H 01/10/18 14:00 18 01/10/18 12:26 74 127/70 01/10/18 12:00 19 01/10/18 10:30 84 142/68 H 01/10/18 10:00 12 01/10/18 09:43 88 88 151/78 H 132/66 Pulse Ox Pulse Ox 01/10/18 20:00 01/10/18 18:58 01/10/18 18:00 01/10/18 16:00 01/10/18 15:26 01/10/18 14:00 01/10/18 12:26 01/10/18 12:00 01/10/18 10:30 01/10/18 10:00 01/10/18 09:43 92 L 94 L Weight Admit Weight 186 lb 8.001 oz Weight 213 lb 13.574 oz Most Recent Monitor Data Heart Rate from ECG 83 NIBP 153/78 NIBP BP-Mean 103 Respiration from ECG 20 SpO2 95 I&O: 01/09/18 01/10/18 01/11/18 06:59 06:59 06:59 Intake Total 2174.6 2034.1 1033.8 Output Total 1295 1955 1005 Balance 879.6 79.1 28.8 Result Diagrams: 01/10/18 05:00 01/10/18 05:00 Additional Labs: Microbiology 01/10/18 10:50 Bronchial Washing - Right Respiratory Culture - Preliminary Laboratory Tests 01/08/18 01/08/18 01/09/18 04:05 04:05 04:00 WBC 11.0 H Hgb 8.8 L Potassium 3.2 L 4.0 01/09/18 04:00 WBC 10.4 Hgb 9.1 L Potassium EKG Reviewed by me: Yes (Tele - SR) Phys Exam - Physical Examination sedate on mech vent, ETT in place HEENT: sclera anicteric, oral pharynx no lesions Neck: no nodes, no JVD, supple, full ROM Respiratory: no wheezing, no rales, no rhonchi, clear to auscultation bilateral Cardiovascular: RRR, no significant murmur, no rub, gallop wound vac in place Gastrointestinal: soft, no distention, positive bowel sounds Musculoskeletal: pulses present, edema present sedate Skin: no rash, normal turgor, cap refill <2 seconds Dx/Plan (1) ARDS (adult respiratory distress syndrome) Code(s): J80 - ACUTE RESPIRATORY DISTRESS SYNDROME Status: Acute Comment: Bronchoscopy completed today, sputum cx pending (2) Acute respiratory failure with hypoxia Code(s): J96.01 - ACUTE RESPIRATORY FAILURE WITH HYPOXIA Status: Acute Comment: Mech vent with SIMV, wean as clinically indicated (3) Acute bacterial peritonitis Code(s): K65.9 - PERITONITIS, UNSPECIFIED Status: Acute Comment: Continue Zosyn, s/p bowel resection POD #6 with wound vac (4) Gangrene of colon Code(s): K55.049 - ACUTE INFARCTION OF LARGE INTESTINE, EXTENT UNSPECIFIED Status: Acute Comment: s/p colectomy POD #6 (5) Hypokalemia Code(s): E87.6 - HYPOKALEMIA Status: Acute Comment: Resolving, serial K+ monitoring (6) Severe sepsis Code(s): A41.9 - SEPSIS, UNSPECIFIED ORGANISM; R65.20 - SEVERE SEPSIS WITHOUT SEPTIC SHOCK Status: Acute Comment: Critical support - Plan continue antibiotics, social group worker, respiratory therapy, DVT proph w/SCDs Continue critical support -: Nutritional support with TF's @ 15ml/h -: WCT with wound vac -: Continue Zosyn -: AM lab: BMP, CBC, ABG * .
[2018-01-10] MEDS: Enoxaparin Sodium 40 MG/0.4 ML SYRINGE SC SCH (21:25)
[2018-01-10] MEDS: 1/2 NS w/KCL 20 mEq 1,000 ML IV SCH (23:59)
[2018-01-11] MEDS: Piperacillin/Tazobactam 4.5 GM in Sodium Chloride 0.9% 100 ML IVPB SCH ×4 (03:03→21:37)
[2018-01-11] MEDS: fentaNYL Citrate/PF 2,000 MCG in Sodium Chloride 0.9% 60 ML IV SCH (04:03)
[2018-01-11 05:19] LABS: Anion Gap 9 mmol/L (10-20); BUN (Urea Nitrogen) 22 mg/dL (9.8-20.1); Calc. Creatinine Clearance 115 mL/min (70-130); Calcium 8.7 mg/dL (7.8-10.44); Carbon Dioxide 30 mmol/L (23-31); Chloride 109 mmol/L (98-107); Estimated GFR-MDRD 88; Glucose 134 mg/dL (83-110); Potassium 4.1 mmol/L (3.5-5.1); Sodium 144 mmol/L (136-145)
[2018-01-11 06:13] LABS: Band 12 % (5-11); Lymphocytes 13 % (21-51); MDiff Complete? YES; Mean Corpuscular HGB CONC 32.1 g/dL (32.0-36.0); Mean Corpuscular Hemoglobin 29.8 pg (27.0-31.0); Mean Corpuscular Volume 92.7 fL (78.0-98.0); Mean Platelet Volume 7.9 fL (7.4-10.4); Monocytes 3 % (0-10); Neutrophil 72 % (42-75); Nucleated RBC 1 % (0); PLT Morphology Comment Appears Adequate; Platelet Count 269 thou/uL (130-400); RBC Distribution Width 12.5 % (11.5-14.5); Red Blood Cell (RBC) Count 3.03 mill/uL (4.20-5.40)
[2018-01-11 07:13] LABS: Actual Bicarbonate (HCO3a) 31.2 mEq/L (22-28); Base Excess (BEa) 6.8 mEq/L (-2.0 to +3.0); CO2 Tension 44.3 mmHg (35.0-45.0); Calcium, Ionized 1.17 mmol/L (1.12-1.30); Hemoglobin (Hb) 9.3 g/dL (12.0-16.0); O2 Tension (PaO2) 71.6 mmHg (> 70.0); Potassium - ABG Lab 4.85 mmol/L (3.70-5.30); pH, Arterial 7.47 (7.35-7.45)
[2018-01-11 07:16] LABS: ALV-art Gradient 229.525 (0-20); Puncture Site RRA
--- NOTE | 2018-01-11 08:57 | RAD ---
ONE VIEW CHEST: COMPARISON: 01/10/18. HISTORY: Respiratory distress. Ventilated patient. FINDINGS: Stable endotracheal tube, nasogastric tube, and right-sided central venous catheter. Stable cardiac silhouette. There are patchy interstitial and alveolar infiltrates, unchanged. No pneumothorax. IMPRESSION: No significant change. POS: [facility]
--- NOTE | 2018-01-11 09:42 | PRG ---
DATE OF SERVICE: 01/11/2018 SUBJECTIVE: This morning, awake, alert and responsive, appears to be much improved. Appears oriented to place, person. OBJECTIVE: VITAL SIGNS: Blood pressure 140/72, sats are 97%, respirations 18, temperature 98. I's and O's are 2092 in, 330 out. CHEST: Reveals decreased breath sounds, no wheezing. CARDIAC: Normal S1, S2, no gallops. ABDOMEN: Soft, no masses. LABORATORY DATA: White count 12,000, H&H is 9 and 28, platelet count is normal , PO2 of 71, PCO2 40_, rate of 10, 50%, 10_ PEEP. Electrolytes are normal. X-RAY FINDINGS: X-ray showed bilateral pulmonary infiltrates consistent with ARDS. IMPRESSION: 1. Acute respiratory distress syndrome, status post ischemic bowel. 2. Encephalopathy. 3. Deconditioning. PLAN: Continue to wean slowly. PT, nutrition, and supportive care, broad- spectrum antibiotics. We will follow. One-half hour critical care time. NNEKA
[2018-01-11] MEDS: Pantoprazole 40 MG VIAL IVP SCH (09:54)
--- NOTE | 2018-01-11 11:16 | PRG ---
DATE OF SERVICE: 01/11/2018 Ms. Braga is doing well today. She is on the ventilator. Her eyes are open and she does interact although, does not reliably respond appropriately to questions. PHYSICAL EXAMINATION: VITAL SIGNS: Heart rate 81, 153/86. She is on tube feedings, target rate 15 mL per hour, tolerating them well. Minimal residuals. Urine output is good, 1830 for 24 hours. LUNGS: Clear to auscultation. CARDIAC: Regular rate and rhythm without murmur or gallop. ABDOMEN: Soft. Colostomy healthy. Midline wound VAC in place. EXTREMITIES: Unremarkable, less edema. LABORATORY DATA: White count 12, hemoglobin 9. Basic metabolic profile unremarkable. BUN 22, creat inine 0.66. ASSESSMENT AND PLAN: 1. Doing well, tolerating tube feedings, GI tract is active. Continue tube feeds 2. Respiratory failure. Dr. Orantes is following her on the ventilator. Chest x-ray has no significan t change revealing changes of patchy diffuse aveolar infiltrates consistent with adult respiratory di stress syndrome postoperatively. 3. Patient has encephalopathy, deconditioning. Continue weaning efforts. When the patient is extub ated. I would plan to remove the NG tube and begin full liquids. The patient will need rehabilitati on postoperatively and we will not be able to transfer her until later next week or the week after.
--- NOTE | 2018-01-11 19:54 | PDOC.PN ---
- Subjective Encounter Start Date: 01/11/18 Encounter Start Time: 16:20 Subjective: f/u for resp failure on mech vent, s/p laparotomy for gangrenous bowl -: POD #7 with wound vac. Tolerating TF's, slow titration of sedation. - Objective Resuscitation Status: Resuscitation Status FULL:Full Resuscitation MAR Reviewed: Yes Vital Signs & Weight: Vital Signs (12 hours) Pulse Pulse Pulse Resp BP BP BP 01/11/18 18:21 75 150/84 H 01/11/18 18:00 17 01/11/18 16:00 11 L 01/11/18 14:13 75 154/81 H 01/11/18 14:00 15 01/11/18 12:00 15 01/11/18 10:25 84 01/11/18 10:00 15 01/11/18 08:37 85 83 158/83 H 163/86 H 01/11/18 08:00 12 Pulse Ox Pulse Ox Pulse Ox 01/11/18 18:21 01/11/18 18:00 01/11/18 16:00 01/11/18 14:13 01/11/18 14:00 01/11/18 12:00 01/11/18 10:25 01/11/18 10:00 01/11/18 08:37 98 98 01/11/18 08:00 98 Weight Admit Weight 212 lb 11.937 oz Weight 212 lb 11.937 oz Most Recent Monitor Data Heart Rate from ECG 86 NIBP 162/83 NIBP BP-Mean 109 Respiration from ECG 19 SpO2 93 I&O: 01/10/18 01/11/18 01/12/18 06:59 06:59 06:59 Intake Total 2034.1 2092.8 943 Output Total 1955 2330 1015 Balance 79.1 -237.2 -72 Result Diagrams: 01/11/18 04:48 01/11/18 04:48 Additional Labs: Microbiology 01/10/18 10:50 Bronchial Washing - Right Respiratory Culture - Preliminary Laboratory Tests 01/08/18 01/08/18 01/09/18 04:05 04:05 04:00 WBC 11.0 H Hgb 8.8 L Potassium 3.2 L 4.0 01/09/18 04:00 WBC 10.4 Hgb 9.1 L Potassium Radiology Reviewed by me: Yes (PCXR - alveolar infiltrates, lines/tubes in place ) EKG Reviewed by me: Yes (Tele - SR) Phys Exam - Physical Examination sedate on mech vent, ETT in place HEENT: sclera anicteric, oral pharynx no lesions Neck: no nodes, no JVD, supple, full ROM Respiratory: no wheezing, no rales, no rhonchi, clear to auscultation bilateral S1, S2 Cardiovascular: RRR, no significant murmur, no rub, gallop + colostomy in place with brown, liquid stool, wound vac in midline Gastrointestinal: soft, no distention, positive bowel sounds Musculoskeletal: pulses present, edema present sedate on mech vent Skin: normal turgor, cap refill <2 seconds Dx/Plan (1) ARDS (adult respiratory distress syndrome) Code(s): J80 - ACUTE RESPIRATORY DISTRESS SYNDROME Status: Acute Comment: Bronchoscopy completed today, sputum cx with few yeast spp (2) Acute respiratory failure with hypoxia Code(s): J96.01 - ACUTE RESPIRATORY FAILURE WITH HYPOXIA Status: Acute Comment: Mech vent with SIMV, wean as clinically indicated, overbreathing vent (3) Acute bacterial peritonitis Code(s): K65.9 - PERITONITIS, UNSPECIFIED Status: Acute Comment: Continue Zosyn, s/p bowel resection POD #6 with wound vac (4) Gangrene of colon Code(s): K55.049 - ACUTE INFARCTION OF LARGE INTESTINE, EXTENT UNSPECIFIED Status: Acute Comment: s/p colectomy POD #7 (5) Hypokalemia Code(s): E87.6 - HYPOKALEMIA Status: Acute Comment: Resolving, serial K+ monitoring (6) Severe sepsis Code(s): A41.9 - SEPSIS, UNSPECIFIED ORGANISM; R65.20 - SEVERE SEPSIS WITHOUT SEPTIC SHOCK Status: Acute Comment: Critical support - Plan continue antibiotics, director social welfare, respiratory therapy, DVT proph w/SCDs continue critical support -: Wean mech vent as clinically indicated -: Wean sedation -: Continue Zosyn -: AM lab: BMP, CBC, ABG * .
[2018-01-11] MEDS: Enoxaparin Sodium 40 MG/0.4 ML SYRINGE SC SCH (21:38)
[2018-01-12] MEDS: Piperacillin/Tazobactam 4.5 GM in Sodium Chloride 0.9% 100 ML IVPB SCH ×4 (03:27→20:34)
[2018-01-12 05:12] LABS: Anion Gap 11 mmol/L (10-20); BUN (Urea Nitrogen) 22 mg/dL (9.8-20.1); Calc. Creatinine Clearance 123 mL/min (70-130); Calcium 8.1 mg/dL (7.8-10.44); Carbon Dioxide 28 mmol/L (23-31); Chloride 106 mmol/L (98-107); Estimated GFR-MDRD Greater than 90; Glucose 116 mg/dL (83-110); Potassium 3.6 mmol/L (3.5-5.1); Sodium 141 mmol/L (136-145)
[2018-01-12 05:24] LABS: Eosinophils 1 % (0-10); Hemoglobin 8.7 g/dL (12.0-16.0); Hypochromia SLIGHT = 6-15 cells (100X) (0-5/hpf); Lymphocytes 13 % (21-51); MDiff Complete? YES; Mean Corpuscular HGB CONC 33.1 g/dL (32.0-36.0); Mean Corpuscular Hemoglobin 30.3 pg (27.0-31.0); Mean Corpuscular Volume 91.7 fL (78.0-98.0); Mean Platelet Volume 7.4 fL (7.4-10.4); Monocytes 1 % (0-10); Neutrophil 85 % (42-75); PLT Morphology Comment Appears Adequate; Platelet Count 285 thou/uL (130-400); RBC Distribution Width 12.6 % (11.5-14.5); Red Blood Cell (RBC) Count 2.88 mill/uL (4.20-5.40); White Blood Cell (WBC) Count 12.1 thou/uL (4.8-10.8)
[2018-01-12 07:13] LABS: Base Excess (BEa) 5.3 mEq/L (-2.0 to +3.0); Calcium, Ionized 1.12 mmol/L (1.12-1.30); Hemoglobin (Hb) 10.4 g/dL (12.0-16.0); Potassium - ABG Lab 3.42 mmol/L (3.70-5.30)
[2018-01-12 07:14] LABS: ALV-art Gradient 199.675 (0-20); CO2 Tension 25.7 mmHg (35.0-45.0); O2 Tension (PaO2) 53.4 mmHg (> 70.0); Puncture Site LRA; pH, Arterial 7.62 (7.35-7.45)
--- NOTE | 2018-01-12 08:48 | RAD ---
CHEST 1 VIEW: Date: 01/12/18 HISTORY: Dyspnea. Follow-up. COMPARISON: 01/11/18. FINDINGS: The cardiac silhouette is magnified by projection. Pulmonary vasculature remains engorged. Parenchyma l infiltrates throughout each upper lobe and the right lung base are similar in appearance to the shahzad or exam. Small amount of bilateral pleural fluid is likely and is unchanged. Mediastinum is midline. Lines and tubes appear unchanged in position. IMPRESSION: Multifocal infiltrates, pulmonary vascular congestion, and other findings are stable. POS: [facility]
[2018-01-12] MEDS: Pantoprazole 40 MG VIAL IVP SCH (09:44)
--- NOTE | 2018-01-12 09:55 | PRG ---
DATE OF SERVICE: 01/12/2018 This morning she is awake, alert and responsive. She is on the vent. PHYSICAL EXAMINATION: VITAL SIGNS: Respiratory rate is 31. Pulse is 75, blood pressure 140/80, sats are 93-94%. GENERAL: She is awake, responsive. I's and O's 2091 in, 2330 out. CHEST: Chest reveals bilateral rhonchi and crackles. CARDIAC: Sinus tachycardia. ABDOMEN: Soft. LABORATORY DATA: White count 12,000, H&H 8 and 26, platelet count 285, PO2 53, [id number], on 40%, ra te of 8. Very alkalotic. X-ray shows diffuse pulmonary infiltrates. IMPRESSION: 1. Respiratory failure. 2. Adult respiratory distress syndrome. 3. Status post lap. 4. Marked respiratory alkalosis. PLAN: She is not weanable at this stage. We will continue a trial of CPAP. If she gets tired she c an be placed back on the vent. Trial of Diamox. One-half hour critical care time.
[2018-01-12] MEDS: acetaZOLAMIDE Sodium 500 MG in Sodium Chloride 0.9% 50 ML IVPB SCH (11:54)
[2018-01-12] MEDS: fentaNYL Citrate/PF 2,000 MCG in Sodium Chloride 0.9% 60 ML IV SCH (11:58)
[2018-01-12] MEDS: Enoxaparin Sodium 40 MG/0.4 ML SYRINGE SC SCH (20:34)
--- NOTE | 2018-01-12 20:59 | PDOC.PN ---
- Subjective Encounter Start Date: 01/12/18 Encounter Start Time: 15:00 Subjective: f/u for resp failure and s/p laparotomy with bowel resection POD#8 -: Remains on mech vent and not weanable currently. - Objective Resuscitation Status: Resuscitation Status FULL:Full Resuscitation MAR Reviewed: Yes Vital Signs & Weight: Vital Signs (12 hours) Temp Pulse Pulse Pulse Resp BP BP 01/12/18 18:39 55 L 15 01/12/18 18:00 15 01/12/18 16:00 99.3 F 25 H 01/12/18 14:11 76 139/69 01/12/18 14:10 78 23 H 01/12/18 14:00 20 01/12/18 12:00 100.4 F H 01/12/18 11:30 24 H 01/12/18 10:54 89 157/78 H 01/12/18 10:51 87 29 H 01/12/18 10:27 80 82 157/78 H 01/12/18 09:10 24 H BP Pulse Ox Pulse Ox Pulse Ox 01/12/18 18:39 97 01/12/18 18:00 01/12/18 16:00 01/12/18 14:11 01/12/18 14:10 96 01/12/18 14:00 01/12/18 12:00 01/12/18 11:30 01/12/18 10:54 01/12/18 10:51 93 L 01/12/18 10:27 157/81 H 92 L 91 L 01/12/18 09:10 Weight Admit Weight 212 lb 11.937 oz Weight 3.39 oz Most Recent Monitor Data Heart Rate from ECG 54 NIBP 86/47 NIBP BP-Mean 60 Respiration from ECG 16 SpO2 97 I&O: 01/11/18 01/12/18 01/13/18 06:59 06:59 06:59 Intake Total 2092.8 1947.4 1261.8 Output Total 2330 2200 1420 Balance -237.2 -252.6 -158.2 Result Diagrams: 01/12/18 04:49 01/12/18 04:49 Additional Labs: Microbiology 01/10/18 10:50 Bronchial Washing - Right Respiratory Culture - Preliminary Laboratory Tests 01/08/18 01/08/18 01/09/18 04:05 04:05 04:00 WBC 11.0 H Hgb 8.8 L Potassium 3.2 L 4.0 01/09/18 04:00 WBC 10.4 Hgb 9.1 L Potassium Radiology Reviewed by me: Yes (PCXR - alveolar infiltrates similar to exam ) EKG Reviewed by me: Yes (Tele - SR) Phys Exam - Physical Examination sedate on mech vent, ETT in place HEENT: sclera anicteric, oral pharynx no lesions Neck: no nodes, no JVD, supple, full ROM scattered coarse sounds S1, S2 Cardiovascular: RRR, no significant murmur, no rub, gallop colostomy in place, wound vac in midline Gastrointestinal: soft, non-tender, no distention, positive bowel sounds Musculoskeletal: pulses present, edema present Skin: normal turgor, cap refill <2 seconds Dx/Plan (1) ARDS (adult respiratory distress syndrome) Code(s): J80 - ACUTE RESPIRATORY DISTRESS SYNDROME Status: Acute Comment: Bronchoscopy completed today, sputum cx with few yeast spp (2) Acute respiratory failure with hypoxia Code(s): J96.01 - ACUTE RESPIRATORY FAILURE WITH HYPOXIA Status: Acute Comment: Mech vent with SIMV, wean as clinically indicated, overbreathing vent (3) Acute bacterial peritonitis Code(s): K65.9 - PERITONITIS, UNSPECIFIED Status: Acute Comment: Continue Zosyn, s/p bowel resection POD #8 with wound vac (4) Gangrene of colon Code(s): K55.049 - ACUTE INFARCTION OF LARGE INTESTINE, EXTENT UNSPECIFIED Status: Acute Comment: s/p colectomy POD #8 (5) Hypokalemia Code(s): E87.6 - HYPOKALEMIA Status: Acute Comment: Resolving, serial K+ monitoring (6) Severe sepsis Code(s): A41.9 - SEPSIS, UNSPECIFIED ORGANISM; R65.20 - SEVERE SEPSIS WITHOUT SEPTIC SHOCK Status: Acute Comment: Critical support - Plan continue antibiotics, PT/OT, social work nurse, respiratory therapy, DVT proph w/ SCDs Continue pulmonary support -: Wean as clinically indicated -: Continue Zosyn -: Nutritional support -: AM lab: BMP, CBC * .
--- NOTE | 2018-01-12 21:43 | PRG ---
DATE OF SERVICE: 01/12/2018 SUBJECTIVE: Yesenia Braga is doing well today. She is intubated. She is not able to be weaned yet due to ARDS. PHYSICAL EXAMINATION: VITAL SIGNS: 86/47, 54, 98.2 degrees. She is tolerating her tube feeds. Urine output 1750. LUNGS: Coarse, no wheezing. CARDIAC: Regular rate and rhythm. ABDOMEN: Soft, bowel sounds present, colostomy healthy. EXTREMITIES: Unremarkable. LABORATORY DATA: White count 12, hemoglobin 8.7. Basic metabolic profile normal. ASSESSMENT AND PLAN: 1. ARDS, respiratory failure. Continue ventilator weaning per pulmonary. 2. Status post ischemic colitis, splenic flexure, status post mobilization of splenic flexure, colos jesus, Alvaro's procedure. Tolerating tube feedings. When she is extubated, NG tube can be removed and diet can be started. In the meantime, continue tube feedings.
[2018-01-13] MEDS: fentaNYL Citrate/PF 2,000 MCG in Sodium Chloride 0.9% 60 ML IV SCH (02:24)
[2018-01-13] MEDS: Piperacillin/Tazobactam 4.5 GM in Sodium Chloride 0.9% 100 ML IVPB SCH ×4 (02:25→20:56)
[2018-01-13] MEDS: 1/2 NS w/KCL 20 mEq 1,000 ML IV SCH (02:40)
[2018-01-13 04:38] LABS: Chloride 109 mmol/L (98-107); Potassium 3.5 mmol/L (3.5-5.1); Sodium 138 mmol/L (136-145)
[2018-01-13 04:39] LABS: Calcium 8.4 mg/dL (7.8-10.44); Glucose 121 mg/dL (83-110)
[2018-01-13 04:41] LABS: Anion Gap 12 mmol/L (10-20); Carbon Dioxide 21 mmol/L (23-31)
[2018-01-13 04:43] LABS: BUN (Urea Nitrogen) 19 mg/dL (9.8-20.1); Calc. Creatinine Clearance 0 mL/min (70-130); Estimated GFR-MDRD Greater than 90
[2018-01-13 05:46] LABS: Band 9 % (5-11); Eosinophils 2 % (0-10); Hemoglobin 8.9 g/dL (12.0-16.0); Lymphocytes 7 % (21-51); MDiff Complete? YES; Mean Corpuscular HGB CONC 32.9 g/dL (32.0-36.0); Mean Corpuscular Hemoglobin 30.2 pg (27.0-31.0); Mean Corpuscular Volume 91.7 fL (78.0-98.0); Mean Platelet Volume 7.1 fL (7.4-10.4); Monocytes 3 % (0-10); Neutrophil 79 % (42-75); Platelet Count 331 thou/uL (130-400); RBC Distribution Width 12.6 % (11.5-14.5); Red Blood Cell (RBC) Count 2.94 mill/uL (4.20-5.40); White Blood Cell (WBC) Count 13.9 thou/uL (4.8-10.8)
[2018-01-13 06:26] LABS: Actual Bicarbonate (HCO3a) 23.6 mEq/L (22-28); Calcium, Ionized 1.15 mmol/L (1.12-1.30); Hemoglobin (Hb) 9.4 g/dL (12.0-16.0); O2 Tension (PaO2) 79.2 mmHg (> 70.0); Potassium - ABG Lab 3.38 mmol/L (3.70-5.30); pH, Arterial 7.46 (7.35-7.45)
[2018-01-13 06:28] LABS: Puncture Site LRA
--- NOTE | 2018-01-13 08:01 | RAD ---
CHEST 1 VIEW: HISTORY: Dyspnea. Followup. COMPARISON: 01/12/2018. FINDINGS: Cardiac silhouette is magnified by projection. Pulmonary vasculature remains engorged. Multifocal a irspace disease throughout each lung is similar in appearance to the previous study. Bilateral pleur al fluid is not significantly changed. Mediastinum remains midline. Lines and tubes are unchanged i n position. No evidence of pneumothorax. IMPRESSION: Multifocal infiltrates, pulmonary vascular congestion, and other findings are stable. POS: [facility]
[2018-01-13] MEDS ORDERED: Midazolam HCl 2 mg/2 ml Vial ONE (08:37)
[2018-01-13] MEDS: Pantoprazole 40 MG VIAL IVP SCH (08:46)
[2018-01-13] MEDS: acetaZOLAMIDE Sodium 500 MG in Sodium Chloride 0.9% 50 ML IVPB SCH (09:00)
--- NOTE | 2018-01-13 09:42 | PRG ---
DATE OF SERVICE: 01/13/2018 A 35 minutes critical care time. SUBJECTIVE: The patient remains intubated on mechanical ventilation. She will wake up and follow co mmands. OBJECTIVE: VITAL SIGNS: Her temperature is 99.1, pulse 80, blood pressure 126/64. A 24-hour intake 2369, output 3365. HEENT: Unremarkable. NECK: No JVD. LUNGS: Coarse rhonchi. CARDIAC: S1 and S2 regular. ABDOMEN: Soft. EXTREMITIES: No edema. LABORATORY DATA: Sodium 138, potassium 3.5, chloride 109, CO2 21, BUN 19, creatinine 0.6, glucose 12 1, pH 7.46, pCO2 34, PO2 79, is on pressure support ventilation with PEEP 5, pressure support 10, FIO 2 45%. White blood cell count 13.9, hematocrit 26.9, platelet count 331. X-RAY FINDINGS: Chest x-ray shows diffuse bilateral infiltrates, right greater than left. ET tube i s in good position. ASSESSMENT: 1. Acute respiratory distress syndrome. 2. Acute respiratory failure requiring mechanical ventilation. 3. Likely mucous plugging. PLAN: I do not think she is weanable without at least doing a bronchoscopy and see if we can allevia te her some of the secretions. The rest of her labs look stable at this time, agree with the current antibiotics. We will perform bronchoscopy.
--- NOTE | 2018-01-13 14:43 | OP ---
DATE OF PROCEDURE: 01/13/2018 PROCEDURE: Fiberoptic bronchoscopy. PREOPERATIVE DIAGNOSIS: Mucus plugging. POSTOPERATIVE DIAGNOSIS: Diffuse tracheobronchitis bilaterally with some mucus plugging. ANESTHESIA: The patient was given a total of 2 mg Versed for the procedure. Informed consent was obtained from the patient's son, as the patient could not give consent for herse lf. While the patient was on mechanical ventilation, an adaptor was placed on the end of the endotracheal tube. She was on SIMV ventilation throughout the procedure with an FiO2 of 100%. An Olympus 2.0 br onchoscope was placed down the endotracheal tube. The airways were surveyed bilaterally. The patien t had extensive mucus plugging in the right lower lobe and the left upper lobe. She had extremely fr iable/hemorrhagic airways bilaterally. The airways were lavaged with saline and bloody secretions re turned. The procedure was tolerated well.
--- NOTE | 2018-01-13 16:25 | PDOC.PN ---
- Subjective Encounter Start Date: 01/13/18 Encounter Start Time: 16:25 Subjective: f/u with resp failure on SIMV and s/p bowel resection due to gangrene -: POD #9. s/p bronchoscopy today with mucus plugging and lavage. -: Receiving Zosyn currently. - Objective Resuscitation Status: Resuscitation Status FULL:Full Resuscitation MAR Reviewed: Yes Vital Signs & Weight: Vital Signs (12 hours) Temp Pulse Resp BP Pulse Ox 01/13/18 14:31 56 L 97/58 L 01/13/18 14:29 55 L 15 98 01/13/18 14:00 17 01/13/18 12:00 98.7 F 17 01/13/18 10:40 73 119/67 01/13/18 10:38 70 22 H 96 01/13/18 10:00 22 H 01/13/18 08:00 99.1 F 20 97 01/13/18 06:16 79 126/64 01/13/18 06:14 85 18 99 01/13/18 06:00 20 Weight Admit Weight 212 lb 11.937 oz Weight 211 lb 3.245 oz Most Recent Monitor Data Heart Rate from ECG 57 NIBP 97/58 NIBP BP-Mean 71 Respiration from ECG 11 SpO2 99 I&O: 01/12/18 01/13/18 01/14/18 06:59 06:59 06:59 Intake Total 1947.4 2369.9 120 Output Total 2200 3365 615 Balance -252.6 -995.1 -495 Result Diagrams: 01/13/18 03:47 01/13/18 03:47 Additional Labs: Microbiology 01/10/18 10:50 Bronchial Washing - Right Respiratory Culture - Preliminary Laboratory Tests 01/08/18 01/08/18 01/09/18 04:05 04:05 04:00 WBC 11.0 H Hgb 8.8 L Neutrophils % (Manual) Potassium 3.2 L 4.0 01/09/18 01/11/18 01/12/18 04:00 04:48 04:49 WBC 10.4 12.0 H 12.1 H Hgb 9.1 L Neutrophils % (Manual) 85 H Potassium 01/13/18 03:47 WBC Hgb Neutrophils % (Manual) 79 H Potassium Radiology Reviewed by me: Yes (PCXR - extensive bilateral infiltrates) EKG Reviewed by me: Yes (Tele - SR) Phys Exam - Physical Examination alert, responds by shaking head and blinking, ETT in place HEENT: sclera anicteric, oral pharynx no lesions Neck: no nodes, no JVD, supple, full ROM coarse, diminished breath sounds bilat S1, S2 Cardiovascular: RRR, no significant murmur, no rub, gallop wound vac in midline, + colostomy in place Gastrointestinal: soft, positive bowel sounds mild LE edema and UE's Musculoskeletal: pulses present, edema present Neurological: moves all 4 limbs Skin: normal turgor, cap refill <2 seconds Dx/Plan (1) ARDS (adult respiratory distress syndrome) Code(s): J80 - ACUTE RESPIRATORY DISTRESS SYNDROME Status: Acute Comment: Bronchoscopy completed today, sputum cx with few yeast spp (2) Acute respiratory failure with hypoxia Code(s): J96.01 - ACUTE RESPIRATORY FAILURE WITH HYPOXIA Status: Acute Comment: Mech vent with SIMV, wean as clinically indicated, overbreathing vent (3) Acute bacterial peritonitis Code(s): K65.9 - PERITONITIS, UNSPECIFIED Status: Acute Comment: Continue Zosyn, s/p bowel resection POD #9 with wound vac (4) Gangrene of colon Code(s): K55.049 - ACUTE INFARCTION OF LARGE INTESTINE, EXTENT UNSPECIFIED Status: Acute Comment: s/p colectomy POD #9 (5) Hypokalemia Code(s): E87.6 - HYPOKALEMIA Status: Acute Comment: Resolving, serial K+ monitoring (6) Severe sepsis Code(s): A41.9 - SEPSIS, UNSPECIFIED ORGANISM; R65.20 - SEVERE SEPSIS WITHOUT SEPTIC SHOCK Status: Acute Comment: Critical support, resolved - Plan plan discussed w/ family, continue antibiotics, PT/OT, social media intern, respiratory therapy, DVT proph w/SCDs Continue pulmonary support -: continue Zosyn -: continue Solumedrol, Duonebs -: CM for rehab options -: AM lab: BMP, CBC * .
--- NOTE | 2018-01-13 18:56 | PRG ---
DATE OF SERVICE: 01/13/2018 SUBJECTIVE: Ms. 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 The patient developed postoperative respiratory failure. She remains on mechanical ventilator support. Overall, her hemodynamics is improving. She is tolerating tube feeds and having adequate stool output per ostomy. PHYSICAL EXAMINATION: VITAL SIGNS: This morning included blood pressure 119/67, pulse 70, respiratory rate is 22, temperat ure 98.7 degrees Fahrenheit, oxygen saturation 97%. ABDOMEN: Soft, moderately distended, nontender to palpation. Incision is intact, clean, and dry. O stomy is viable and functional with liquid stool and gas. EXTREMITIES: Reveals 2+ radial and pedal pulses bilaterally. NEUROLOGIC: Reveals no focal deficits present. Urinary output is greater than 0.5 mL per kilogram per hour. LABORATORY DATA: Today includes a CBC with 13,900 white blood cells, hemoglobin and hematocrit 8.9 a nd 26.9 respectively. Platelet count is 331,000. Metabolic profile: Sodium 138, potassium is 3.5, chloride is 109, bicarbonate is 21, BUN 19, creatin ine 0.64, glucose is 121. A chest x-ray obtained today reveals stable bilateral pleural effusions and bilateral interstitial al veolar infiltrates. No pneumothorax is present. IMPRESSION: 1. Postop day #9, status post left colectomy with end colostomy. 2. Postoperative respiratory failure. 3. Radiographic evidence of acute pulmonary edema, cardiogenic versus noncardiogenic. PLAN: We will obtain a 2D echocardiogram to rule out cardiogenic etiology of the pulmonary edema. There is no acute surgical indication for this patient at this time. Critical care management is deferred to Pulmonary and Critical Care Service.
[2018-01-13] MEDS: Enoxaparin Sodium 40 MG/0.4 ML SYRINGE SC SCH (20:56)
[2018-01-14 04:05] LABS: Anion Gap 11 mmol/L (10-20); BUN (Urea Nitrogen) 19 mg/dL (9.8-20.1); Calc. Creatinine Clearance 108 mL/min (70-130); Calcium 8.6 mg/dL (7.8-10.44); Carbon Dioxide 19 mmol/L (23-31); Chloride 112 mmol/L (98-107); Estimated GFR-MDRD 83; Glucose 124 mg/dL (83-110); Potassium 3.4 mmol/L (3.5-5.1); Sodium 139 mmol/L (136-145)
[2018-01-14 04:14] LABS: Hemoglobin 8.8 g/dL (12.0-16.0); Hypochromia SLIGHT = 6-15 cells (100X) (0-5/hpf); MDiff Complete? YES; Mean Corpuscular Hemoglobin 30.9 pg (27.0-31.0); Mean Platelet Volume 7.2 fL (7.4-10.4); Monocytes 5 % (0-10); Neutrophil 95 % (42-75); PLT Morphology Comment Appears Adequate; Platelet Count 359 thou/uL (130-400); RBC Distribution Width 12.7 % (11.5-14.5); Red Blood Cell (RBC) Count 2.85 mill/uL (4.20-5.40); White Blood Cell (WBC) Count 16.4 thou/uL (4.8-10.8)
[2018-01-14] MEDS: Piperacillin/Tazobactam 4.5 GM in Sodium Chloride 0.9% 100 ML IVPB SCH ×4 (05:01→21:14)
[2018-01-14] MEDS: fentaNYL Citrate/PF 2,000 MCG in Sodium Chloride 0.9% 60 ML IV SCH (05:36)
[2018-01-14] MEDS ORDERED: CCU Electrolyte Replacement 1 EACH FS ONE (07:41)
[2018-01-14] MEDS ORDERED: Potassium Chloride 40 MEQ in Premix Bag 1 BAG IVPB PRN (07:43)
[2018-01-14] MEDS ORDERED: Magnesium Oxide 400 MG TAB PO PRN ×2 (07:43)
[2018-01-14] MEDS ORDERED: CCU ELECTROLYTE REPLACEMENT PROTOCOL FS PRN (07:43)
[2018-01-14] MEDS ORDERED: Potassium Chloride 20 MEQ TAB PO PRN (07:43)
[2018-01-14] MEDS ORDERED: Potassium Chloride 40 MEQ in Sodium Chloride 0.9% 250 ML 250 ML IVPB PRN (07:43)
[2018-01-14] MEDS ORDERED: Potassium Phosphate 9 MMOL in Sodium Chloride 0.9% 100 ML IVPB PRN (07:43)
[2018-01-14] MEDS ORDERED: Magnesium 2 GM/NS 0.9% 100 ML 2 GM in Premix Bag 1 BAG IVPB PRN (07:43)
[2018-01-14] MEDS ORDERED: Potassium Phosphate 15 MMOL in Sodium Chloride 0.9% 250 ML 250 ML IV PRN (07:43)
[2018-01-14] MEDS ORDERED: Potassium Phosphate 12 MMOL in Sodium Chloride 0.9% 250 ML 250 ML IV PRN (07:43)
--- NOTE | 2018-01-14 08:35 | PRG ---
DATE OF SERVICE: 01/14/2018 Thirty-five minutes critical care time. SUBJECTIVE: This patient remains intubated on mechanical ventilation. She looks like she is in fair ly good spirits. PHYSICAL EXAMINATION: VITAL SIGNS: Temperature 97.3 with no fever overnight, pulse 89, blood pressure 123/67 requiring no vasopressors. She is currently on Precedex and fentanyl drips for sedation. Total intake for the la st 24 hours was 2048, output 4115. HEENT: Unremarkable. NECK: No JVD. LUNGS: Coarse rhonchi, but better than yesterday. CARDIOVASCULAR: S1, S2 regular. ABDOMEN: Soft. Wound VAC and colostomy noted. EXTREMITIES: No clubbing, cyanosis. She has trace edema throughout. LABORATORY DATA: ABG is pending. White blood cell count 16.4, hematocrit 26, platelet count 359. S odium 139, potassium 3.4, chloride 112, CO2 19, BUN 19, creatinine 0.7, glucose 124. ASSESSMENT: 1. Acute respiratory failure requiring mechanical ventilation. 2. Tracheobronchitis demonstrated by bronchoscopy yesterday. 3. Acute respiratory distress syndrome. 4. Status post laparotomy. PLAN: 1. ABG and chest x-ray will be checked. She will continue on the antibiotics. My hope is that we c an get her extubated by tomorrow. 2. Echocardiogram is pending for today. 3. Potassium will be replaced.
--- NOTE | 2018-01-14 08:40 | RAD ---
CHEST 1 VIEW: HISTORY: Dyspnea. Followup. COMPARISON: 01/13/2018. FINDINGS: Cardiac silhouette is magnified by projection. Pulmonary vasculature engorged with patchy areas of p arenchymal infiltrate throughout each lung similar in appearance to the prior study. Mediastinum is midline. Lines and tubes appear unchanged in position. No evidence of pneumothorax. IMPRESSION: Multifocal infiltrates, pulmonary vascular congestion, and other findings are stable. POS: [facility]
[2018-01-14] MEDS: Pantoprazole 40 MG VIAL IVP SCH (09:18)
--- NOTE | 2018-01-14 11:14 | PDOC.PN ---
- Subjective Encounter Start Date: 01/14/18 Encounter Start Time: 09:15 -: old records requested/rev Patient seen and examined. pt is on vent, awake and follows command, No overnight events - Objective Resuscitation Status: Resuscitation Status FULL:Full Resuscitation MAR Reviewed: Yes Vital Signs & Weight: Vital Signs (12 hours) Temp Pulse Resp BP Pulse Ox 01/14/18 10:30 74 144/88 H 01/14/18 10:28 74 18 98 01/14/18 10:00 18 01/14/18 08:00 98.6 F 18 97 01/14/18 06:08 85 123/67 01/14/18 06:03 94 23 H 99 01/14/18 06:00 16 01/14/18 04:00 98.4 F 16 01/14/18 02:27 106 H 01/14/18 02:26 105 H 27 H 100 01/14/18 02:00 23 H 01/14/18 00:00 14 Weight Admit Weight 212 lb 11.937 oz Weight 211 lb 3.245 oz Most Recent Monitor Data Heart Rate from ECG 70 NIBP 144/88 NIBP BP-Mean 106 Respiration from ECG 23 SpO2 96 I&O: 01/13/18 01/14/18 01/15/18 06:59 06:59 06:59 Intake Total 2369.9 2248.4 130 Output Total 3365 4150 270 Balance -995.1 -1901.6 -140 Result Diagrams: 01/14/18 03:18 01/14/18 03:18 Phys Exam - Physical Examination Constitutional: NAD HEENT: PERRLA, sclera anicteric Neck: no JVD, supple Respiratory: no wheezing, no rales, no rhonchi Cardiovascular: RRR, no significant murmur, no rub Gastrointestinal: soft, no distention, positive bowel sounds wound vac in place, colostomy+ Musculoskeletal: no edema, pulses present Neurological: non-focal Psychiatric: normal affect Skin: no rash, normal turgor Dx/Plan (1) ARDS (adult respiratory distress syndrome) Code(s): J80 - ACUTE RESPIRATORY DISTRESS SYNDROME Status: Acute Comment: s/ p Bronchoscopy (2) Acute bacterial peritonitis Code(s): K65.9 - PERITONITIS, UNSPECIFIED Status: Acute Comment: Continue Zosyn, s/p bowel resection, wound vac (3) Acute respiratory insufficiency, postoperative Code(s): J95.89 - OTH POSTPROC COMPLICATIONS AND DISORDERS OF RESP SYS, NEC Status: Acute Comment: on ventilator now (4) Anemia due to blood loss, acute Code(s): D62 - ACUTE POSTHEMORRHAGIC ANEMIA Status: Acute Comment: monitor CBC (5) Gangrene of colon Code(s): K55.049 - ACUTE INFARCTION OF LARGE INTESTINE, EXTENT UNSPECIFIED Status: Acute Comment: s/p colectomy (6) Hypokalemia Code(s): E87.6 - HYPOKALEMIA Status: Acute Comment: Resolving, serial K+ monitoring (7) Hypomagnesemia Code(s): E83.42 - HYPOMAGNESEMIA Status: Resolved (8) Hypophosphatemia Code(s): E83.39 - OTHER DISORDERS OF PHOSPHORUS METABOLISM Status: Resolved (9) Lactic acidosis Code(s): E87.2 - ACIDOSIS Status: Resolved (10) Severe sepsis Code(s): A41.9 - SEPSIS, UNSPECIFIED ORGANISM; R65.20 - SEVERE SEPSIS WITHOUT SEPTIC SHOCK Status: Resolved Comment: Critical support, resolved (11) Depression Code(s): F32.9 - MAJOR DEPRESSIVE DISORDER, SINGLE EPISODE, UNSPECIFIED Status : Chronic (12) Dyslipidemia Code(s): E78.5 - HYPERLIPIDEMIA, UNSPECIFIED Status: Chronic (13) Hypertension Code(s): I10 - ESSENTIAL (PRIMARY) HYPERTENSION Status: Chronic (14) Obesity (BMI 30.0-34.9) Code(s): E66.9 - OBESITY, UNSPECIFIED Status: Chronic (15) Metabolic acidosis Code(s): E87.2 - ACIDOSIS Status: Resolved (16) Pulmonary vascular congestion Code(s): R09.89 - OTH SYMPTOMS AND SIGNS INVOLVING THE CIRC AND RESP SYSTEMS Status: Resolved (17) Delirium Code(s): R41.0 - DISORIENTATION, UNSPECIFIED Status: Resolved - Plan cont current plan of care, continue antibiotics * continue zosyn, solumedrol * replace potassium * medication reviewed as below * symptomatic treatment * vent as per pulmonary * wound care. Review of Systems - Review of Systems Other: unable to review due to intubated status - Medications/Allergies Allergies/Adverse Reactions: Allergies Allergy/AdvReac Type Severity Reaction Status Date / Time egg Allergy Mild Verified 10/08/13 11:43 aspirin Allergy Verified 10/09/13 11:42 ibuprofen Allergy Verified 10/09/13 11:42 Medications: Current Medications Albuterol/Ipratropium (Duoneb) 3 ml NEB [id number] [facility] Last Admin: 01/14/18 10:28 Dose: 3 ml Enoxaparin Sodium (Lovenox) 40 mg SC 2100 [facility] Last Admin: 01/13/18 20:56 Dose: 40 mg Guaifenesin (Robitussin Sf) 200 mg PO Q6H PRN PRN Reason: Cough Last Admin: 01/06/18 04:02 Dose: 200 mg Fentanyl Citrate 2,000 mcg/ (Sodium Chloride) 100 mls @ 0 mls/hr IV INF [facility]; Protocol Stop: 02/05/18 14:19 Last Admin: 01/14/18 05:36 Dose: 100 mls Fentanyl Citrate (Fentanyl Bolus) 250 mls @ 0 mls/hr IVPB PRN PRN PRN Reason: Breakthrough pain/agitation Stop: 02/05/18 14:19 Potassium Chloride/Sodium Chloride (1/2 Ns W/Kcl 20 Meq) 1,000 mls @ 0 mls/hr IV .Q0M [facility] Last Admin: 01/13/18 02:40 Dose: 1,000 mls Dexmedetomidine HCl 400 mcg/ (Sodium Chloride) 100 mls @ 0 mls/hr IVPB INF [facility] ; Protocol Last Admin: 01/14/18 05:36 Dose: 100 mls Piperacillin Sod/Tazobactam (Sod 4.5 gm/ Sodium Chloride) 100 mls @ 200 mls/hr IVPB 0400,1000,1600,2200 [facility] Last Admin: 01/14/18 09:17 Dose: 100 mls Potassium Chloride 40 meq/ (Sodium Chloride) 270 mls @ 135 mls/hr IVPB ASDIR PRN PRN Reason: FOR SERUM K+ 2.5 - 3.5 Potassium Chloride 40 meq/ (Device) 100 mls @ 50 mls/hr IVPB ASDIR PRN PRN Reason: FOR SERUM K+ 2.5 - 3.5 Last Admin: 01/14/18 09:18 Dose: 100 mls Magnesium Sulfate 1 gm/ Sodium (Chloride) 102 mls @ 102 mls/hr IV PRN PRN PRN Reason: MAG LEVEL 1.4 - 2.0 Magnesium Sulfate 2 gm/ Device 100 mls @ 100 mls/hr IVPB ASDIR PRN PRN Reason: MAGNESIUM < 1.4 Potassium Phosphate 9 mmol/ (Sodium Chloride) 103 mls @ 25.75 mls/hr IVPB ASDIR PRN PRN Reason: Phosphate 1.0-1.8 Potassium Phosphate 12 mmol/ (Sodium Chloride) 254 mls @ 63.5 mls/hr IV ASDIR PRN PRN Reason: Serum phosphate 0.5-0.9 Potassium Phosphate 15 mmol/ (Sodium Chloride) 255 mls @ 63.75 mls/hr IV ASDIR PRN PRN Reason: Serum Phos < 0.5 Lorazepam (Ativan) 2 mg SLOW IVP Q1H PRN PRN Reason: Breakthrough agitation Stop: 02/05/18 14:19 Magnesium Oxide (Magnesium Oxide) 400 mg PO BIDPRN PRN PRN Reason: FOR SERUM MAG 1.4 - 2.0 Magnesium Oxide (Magnesium Oxide) 800 mg PO PRN PRN PRN Reason: FOR SERUM MAG < 1.4 Methylprednisolone Sodium Succinate (Solu-Medrol) 20 mg IVP BID [facility] Last Admin: 01/14/18 09:18 Dose: 20 mg Miscellaneous Medication (Phos-Nak) 1 pkt PO TIDPRN PRN PRN Reason: FOR PHOS LEVEL 1.0 - 1.8 Miscellaneous Medication (Phos-Nak) 2 pkt PO TIDPRN PRN PRN Reason: FOR PHOS LEVEL 0.5 - 1.0 Morphine Sulfate (Morphine Sulfate) 2 mg SLOW IVP Q1H PRN PRN Reason: BREAKTHROUGH PAIN/AGITATION Stop: 02/05/18 14:19 Discontinue Previous Narcotic Pain Medications And Benzodiazepines 1 each FS .ONE [facility] Stop: 02/05/18 14:19 Ccu Electrolyte (Replacement Protocol) 0 each FS PRN PRN PRN Reason: FOR ELECTROLYTE REPLACEMENT Ondansetron HCl (Zofran) 4 mg IVP Q6H PRN PRN Reason: Nausea/Vomiting Last Admin: 01/04/18 05:59 Dose: 4 mg Pantoprazole Sodium (Protonix) 40 mg IVP DAILY [facility] Last Admin: 01/14/18 09:18 Dose: 40 mg Potassium Chloride (K-Dur) 40 meq PO ASDIR PRN PRN Reason: FOR SERUM K+ 2.5 - 3.5 Potassium Chloride (Klor-Con) 40 meq PER TUBE ASDIR PRN PRN Reason: FOR SERUM K+ 2.5-3.5 Propofol (Diprivan) 1,000 mg IV INF PRN; Protocol PRN Reason: TO ACHIEVE GOAL RASS Stop: 02/05/18 14:19 Last Admin: 01/10/18 08:04 Dose: 1,000 mg Propofol (Diprivan Bolus) 20 mg IV Q5MIN PRN PRN Reason: BREAKTHROUGH AGITATION Stop: 02/05/18 14:19 Sodium Chloride (Flush - Normal Saline) 10 ml IVF DAILY [facility] Last Admin: 01/14/18 09:18 Dose: 10 ml Sodium Chloride (Flush - Normal Saline) 10 ml IVF PRN PRN PRN Reason: Saline Flush Last Admin: 01/06/18 05:30 Dose: 10 ml
--- NOTE | 2018-01-14 15:54 | PRG ---
DATE OF SERVICE: 01/14/2018 SUBJECTIVE: Ms. 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 I am seeing the patient on behalf of Dr. Orr. The patient is s lightly sedated on mechanical ventilatory support today. She awakens easily to voice, moves all extr emities, and follows commands. She is tolerating ventilatory wean, currently on CPAP at the time of my evaluation. At bedside, were the patient's and daughter. The patient is tolerating tube feeds at goal and the ostomy has output of stool and gas. The patient is on no vasopressor support. PHYSICAL EXAMINATION: VITAL SIGNS: This morning includes a blood pressure 123/67, pulse 85, respiratory rate is 20, temper ature 98.6 degrees Fahrenheit, oxygen saturation 97%. ABDOMEN: Soft, nondistended. Incision is intact, clean, and dry. Colostomy is viable with output o f liquid stool and gas. GENITOURINARY: The patient records adequate urinary output. NEUROLOGICAL EXAMINATION: She has no focal neurological deficits present. PERTINENT LABORATORY FINDINGS: Today includes a CBC with 16,400 white blood cells, hemoglobin and he matocrit 8.8 and 26.0 respectively. Platelet count is 259,000. Metabolic profile: Sodium 139, pota ssium 3.4, chloride is 112, bicarbonate 19, BUN 19, creatinine 0.69, glucose 124. IMPRESSION: 1. Postoperative day #10, status post left colectomy with colostomy. 2. Postoperative acute respiratory failure, resolving. 3. Acute hypokalemia. PLAN: Correct abnormal electrolytes. Critical care management per Pulmonary Critical Care. There i s no acute surgical indication for this patient at this time. The above findings and plan discussed with the patient's and daughter at bedside. They both indicated understanding of information given. I answered their questions.
[2018-01-14] MEDS: Enoxaparin Sodium 40 MG/0.4 ML SYRINGE SC SCH (21:13)
[2018-01-15] MEDS: Piperacillin/Tazobactam 4.5 GM in Sodium Chloride 0.9% 100 ML IVPB SCH ×4 (03:29→21:11)
[2018-01-15 04:12] LABS: Anion Gap 11 mmol/L (10-20); BUN (Urea Nitrogen) 21 mg/dL (9.8-20.1); Calc. Creatinine Clearance 117 mL/min (70-130); Calcium 8.5 mg/dL (7.8-10.44); Carbon Dioxide 20 mmol/L (23-31); Chloride 113 mmol/L (98-107); Estimated GFR-MDRD Greater than 90; Glucose 143 mg/dL (83-110); Sodium 140 mmol/L (136-145)
[2018-01-15 04:26] LABS: Band 1 % (5-11); Hemoglobin 7.2 g/dL (12.0-16.0); Hypochromia SLIGHT = 6-15 cells (100X) (0-5/hpf); Lymphocytes 1 % (21-51); MDiff Complete? YES; Mean Corpuscular Hemoglobin 30.7 pg (27.0-31.0); Mean Corpuscular Volume 92.9 fL (78.0-98.0); Mean Platelet Volume 7.8 fL (7.4-10.4); Monocytes 3 % (0-10); Neutrophil 95 % (42-75); PLT Morphology Comment Appears Adequate; Platelet Count 325 thou/uL (130-400); RBC Distribution Width 12.9 % (11.5-14.5); Red Blood Cell (RBC) Count 2.34 mill/uL (4.20-5.40); White Blood Cell (WBC) Count 11.1 thou/uL (4.8-10.8)
[2018-01-15 06:38] LABS: Actual Bicarbonate (HCO3a) 20.4 mEq/L (22-28); Base Excess (BEa) -3.9 mEq/L (-2.0 to +3.0); CO2 Tension 33.7 mmHg (35.0-45.0); Calcium, Ionized 1.22 mmol/L (1.12-1.30); Carboxyhemoglobin (COHb) 1.1 gm% (0.0-3.0); Hemoglobin (Hb) 9.6 g/dL (12.0-16.0); O2 Tension (PaO2) 76.2 mmHg (> 70.0); Potassium - ABG Lab 3.56 mmol/L (3.70-5.30)
[2018-01-15 06:45] LABS: ALV-art Gradient 131.225 (0-20); Puncture Site LRA
[2018-01-15] MEDS ORDERED: DC Sedation Protocol FS ONE (08:21)
--- NOTE | 2018-01-15 08:36 | PRG ---
DATE OF SERVICE: 01/15/2018 Thirty-five minutes critical care time. The patient is awake, alert on CPAP, pressure support trial and passes with flying colors today. PHYSICAL EXAMINATION: VITAL SIGNS: Temperature is 98.6, pulse 86, blood pressure 134/74. 24 hour intake 2495, output 2380 . HEENT: Unremarkable. No JVD. LUNGS: A few crackles bilaterally. CARDIAC: S1 and S2 regular. ABDOMEN: Soft. EXTREMITIES: No edema. LABORATORY DATA: PH 7.40, pCO2 of 33, pO2 76 on pressure support of 10, FiO2 35%. White blood cell count 11.1, hematocrit 21.7, platelet count 325. Of note, her hemoglobin on the blood gas the hemogl obin taken by the lab this morning, do not match the hemoglobin blood gases much better. Sodium is 1 40, potassium 4.0, chloride 113, CO2 20, BUN 21, creatinine 0.6, glucose 143. ASSESSMENT: 1. Acute hypoxic respiratory failure requiring mechanical ventilation. 2. Pneumonia, which has improved. 3. Tracheobronchitis. 4. Acute respiratory distress syndrome. 5. Status post laparotomy. PLAN: The patient will be extubated and observed. We will continue her antibiotics. We will start clear liquid diet. Her Precedex and other sedation can be stopped. She will continue on low dose st eroids for now, but this can probably be tapered over the next several days.
--- NOTE | 2018-01-15 09:26 | RAD ---
PORTABLE CHEST: Date: 01/15/18 HISTORY: Shortness of breath. Ventilator and CCU follow-up. COMPARISON: 01/14/18. FINDINGS: ET tube, NG tube, and central line are unchanged. There are bilateral rather diffuse hazy alveolar infiltrates with evidence of bilateral effusions. IMPRESSION: Bilateral infiltrates do not appear significantly changed from yesterday. POS: [facility]
[2018-01-15] MEDS: Pantoprazole 40 MG VIAL IVP SCH (10:15)
--- NOTE | 2018-01-15 11:04 | PDOC.PN ---
- Subjective Encounter Start Date: 01/15/18 Encounter Start Time: 09:00 this morning pt is extubated, doing well Patient seen and examined. No new complaints. No overnight events - Objective Resuscitation Status: Resuscitation Status FULL:Full Resuscitation MAR Reviewed: Yes Vital Signs & Weight: Vital Signs (12 hours) Temp Pulse Resp BP Pulse Ox 01/15/18 10:30 62 17 98 01/15/18 08:30 81 15 97 01/15/18 06:27 68 157/68 H 01/15/18 06:26 69 18 99 01/15/18 06:00 20 01/15/18 04:00 97.7 F 13 01/15/18 02:20 52 L 01/15/18 02:19 52 L 14 97 01/15/18 02:00 14 01/15/18 00:00 14 Weight Admit Weight 212 lb 11.937 oz Weight 206 lb 12.697 oz Most Recent Monitor Data Heart Rate from ECG 76 NIBP 134/74 NIBP BP-Mean 94 Respiration from ECG 21 SpO2 98 I&O: 01/14/18 01/15/18 01/16/18 06:59 06:59 06:59 Intake Total 2248.4 2495.2 Output Total 4150 2380 60 Balance -1901.6 115.2 -60 Result Diagrams: 01/15/18 03:37 01/15/18 03:37 Radiology Reviewed by me: Yes (chest xray noted) EKG Reviewed by me: Yes Phys Exam - Physical Examination Constitutional: NAD HEENT: PERRLA, moist MMs, sclera anicteric Neck: no JVD, supple Respiratory: no wheezing, no rales, no rhonchi anteriorly Cardiovascular: RRR, no significant murmur, no rub Gastrointestinal: soft, no distention, positive bowel sounds wound vac in place, colostomy+ Musculoskeletal: no edema, pulses present Neurological: non-focal, normal sensation Psychiatric: normal affect, A&O x 3 Skin: no rash, normal turgor Dx/Plan (1) ARDS (adult respiratory distress syndrome) Code(s): J80 - ACUTE RESPIRATORY DISTRESS SYNDROME Status: Resolved Comment : s/p Bronchoscopy (2) Acute bacterial peritonitis Code(s): K65.9 - PERITONITIS, UNSPECIFIED Status: Acute Comment: Continue Zosyn, s/p bowel resection, wound vac (3) Acute respiratory insufficiency, postoperative Code(s): J95.89 - OTH POSTPROC COMPLICATIONS AND DISORDERS OF RESP SYS, NEC Status: Resolved Comment: (4) Anemia due to blood loss, acute Code(s): D62 - ACUTE POSTHEMORRHAGIC ANEMIA Status: Acute Comment: monitor CBC (5) Gangrene of colon Code(s): K55.049 - ACUTE INFARCTION OF LARGE INTESTINE, EXTENT UNSPECIFIED Status: Acute Comment: s/p colectomy (6) Hypokalemia Code(s): E87.6 - HYPOKALEMIA Status: Acute Comment: Resolving, serial K+ monitoring (7) Hypomagnesemia Code(s): E83.42 - HYPOMAGNESEMIA Status: Resolved (8) Hypophosphatemia Code(s): E83.39 - OTHER DISORDERS OF PHOSPHORUS METABOLISM Status: Resolved (9) Lactic acidosis Code(s): E87.2 - ACIDOSIS Status: Resolved (10) Severe sepsis Code(s): A41.9 - SEPSIS, UNSPECIFIED ORGANISM; R65.20 - SEVERE SEPSIS WITHOUT SEPTIC SHOCK Status: Resolved Comment: Critical support, resolved (11) Depression Code(s): F32.9 - MAJOR DEPRESSIVE DISORDER, SINGLE EPISODE, UNSPECIFIED Status : Chronic (12) Dyslipidemia Code(s): E78.5 - HYPERLIPIDEMIA, UNSPECIFIED Status: Chronic (13) Hypertension Code(s): I10 - ESSENTIAL (PRIMARY) HYPERTENSION Status: Chronic (14) Obesity (BMI 30.0-34.9) Code(s): E66.9 - OBESITY, UNSPECIFIED Status: Chronic (15) Metabolic acidosis Code(s): E87.2 - ACIDOSIS Status: Resolved (16) Pulmonary vascular congestion Code(s): R09.89 - OTH SYMPTOMS AND SIGNS INVOLVING THE CIRC AND RESP SYSTEMS Status: Resolved (17) Delirium Code(s): R41.0 - DISORIENTATION, UNSPECIFIED Status: Resolved - Plan cont current plan of care, continue antibiotics, PT/OT * now pt is extubated * in next few days will wean off oxygen as tolerated * will start PT/OT * will need eventual swing bed * diet advancement as per surgeon * continue zosyn * medication reviewed as below * symptomatic treatment. Review of Systems - Review of Systems ENT: negative: Ear Pain, Ear Discharge, Nose Pain, Nose Discharge, Nose Congestion, Mouth Pain, Mouth Swelling, Throat Pain, Throat Swelling, Other Respiratory: negative: Cough, Dry, Shortness of Breath, Hemoptysis, SOB with Excertion, Pleuritic Pain, Sputum, Wheezing Cardiovascular: negative: chest pain, palpitations, orthopnea, paroxysmal nocturnal dyspnea, edema, light headedness, other Gastrointestinal: negative: Nausea, Vomiting, Abdominal Pain, Diarrhea, Constipation, Melena, Hematochezia, Other Genitourinary: negative: Dysuria, Frequency, Incontinence, Hematuria, Retention , Other Musculoskeletal: negative: Neck Pain, Shoulder Pain, Arm Pain, Back Pain, Hand Pain, Leg Pain, Foot Pain, Other - Medications/Allergies Allergies/Adverse Reactions: Allergies Allergy/AdvReac Type Severity Reaction Status Date / Time egg Allergy Mild Verified 10/08/13 11:43 aspirin Allergy Verified 10/09/13 11:42 ibuprofen Allergy Verified 10/09/13 11:42 Medications: Current Medications Albuterol/Ipratropium (Duoneb) 3 ml NEB [id number] [facility] Last Admin: 01/15/18 10:30 Dose: 3 ml Enoxaparin Sodium (Lovenox) 40 mg SC 2100 [facility] Last Admin: 01/14/18 21:13 Dose: 40 mg Guaifenesin (Robitussin Sf) 200 mg PO Q6H PRN PRN Reason: Cough Last Admin: 01/06/18 04:02 Dose: 200 mg Potassium Chloride/Sodium Chloride (1/2 Ns W/Kcl 20 Meq) 1,000 mls @ 0 mls/hr IV .Q0M [facility] Last Admin: 01/13/18 02:40 Dose: 1,000 mls Piperacillin Sod/Tazobactam (Sod 4.5 gm/ Sodium Chloride) 100 mls @ 200 mls/hr IVPB 0400,1000,1600,2200 [facility] Last Admin: 01/15/18 10:22 Dose: 100 mls Potassium Chloride 40 meq/ (Sodium Chloride) 270 mls @ 135 mls/hr IVPB ASDIR PRN PRN Reason: FOR SERUM K+ 2.5 - 3.5 Potassium Chloride 40 meq/ (Device) 100 mls @ 50 mls/hr IVPB ASDIR PRN PRN Reason: FOR SERUM K+ 2.5 - 3.5 Last Admin: 01/14/18 09:18 Dose: 100 mls Magnesium Sulfate 1 gm/ Sodium (Chloride) 102 mls @ 102 mls/hr IV PRN PRN PRN Reason: MAG LEVEL 1.4 - 2.0 Magnesium Sulfate 2 gm/ Device 100 mls @ 100 mls/hr IVPB ASDIR PRN PRN Reason: MAGNESIUM < 1.4 Potassium Phosphate 9 mmol/ (Sodium Chloride) 103 mls @ 25.75 mls/hr IVPB ASDIR PRN PRN Reason: Phosphate 1.0-1.8 Potassium Phosphate 12 mmol/ (Sodium Chloride) 254 mls @ 63.5 mls/hr IV [facility]IR PRN PRN Reason: Serum phosphate 0.5-0.9 Potassium Phosphate 15 mmol/ (Sodium Chloride) 255 mls @ 63.75 mls/hr IV [facility]IR PRN PRN Reason: Serum Phos < 0.5 Magnesium Oxide (Magnesium Oxide) 400 mg PO BIDPRN PRN PRN Reason: FOR SERUM MAG 1.4 - 2.0 Magnesium Oxide (Magnesium Oxide) 800 mg PO PRN PRN PRN Reason: FOR SERUM MAG < 1.4 Methylprednisolone Sodium Succinate (Solu-Medrol) 20 mg IVP BID [facility] Last Admin: 01/15/18 10:15 Dose: 20 mg Miscellaneous Medication (Phos-Nak) 1 pkt PO TIDPRN PRN PRN Reason: FOR PHOS LEVEL 1.0 - 1.8 Miscellaneous Medication (Phos-Nak) 2 pkt PO TIDPRN PRN PRN Reason: FOR PHOS LEVEL 0.5 - 1.0 Ondansetron HCl (Zofran) 4 mg IVP Q6H PRN PRN Reason: Nausea/Vomiting Last Admin: 01/04/18 05:59 Dose: 4 mg Pantoprazole Sodium (Protonix) 40 mg PO DAILY [facility] Pantoprazole Sodium (Protonix) 40 mg PO NOW [facility] Stop: 01/15/18 12:00 Potassium Chloride (K-Dur) 40 meq PO ASDIR PRN PRN Reason: FOR SERUM K+ 2.5 - 3.5 Potassium Chloride (Klor-Con) 40 meq PER TUBE ASDIR PRN PRN Reason: FOR SERUM K+ 2.5-3.5 Sodium Chloride (Flush - Normal Saline) 10 ml IVF DAILY [facility] Last Admin: 01/15/18 10:20 Dose: 10 ml Sodium Chloride (Flush - Normal Saline) 10 ml IVF PRN PRN PRN Reason: Saline Flush Last Admin: 01/06/18 05:30 Dose: 10 ml
[2018-01-15] MEDS ORDERED: traMADol HCl 50 MG TAB PO PRN (17:50)
[2018-01-15] MEDS ORDERED: Ibuprofen 600 MG TAB PO PRN (17:50)
[2018-01-15] MEDS ORDERED: Acetaminophen 500 MG TAB PO SCH (18:00)
--- NOTE | 2018-01-15 20:23 | PRG ---
DATE OF SERVICE: 01/15/2018 SUBJECTIVE: Ms. Braga is extubated today. She is in the ICU: OBJECTIVE: VITAL SIGNS: 164/89 heart rate 107, respiratory rate 20, 97.7 degrees. HEENT: Her Dobhoff has been removed. She has been started on feedings. Ostomy output is good. Col ostomy is healthy. LUNGS: Clear to auscultation, few rhonchi at base. No wheezing. CARDIAC: Regular rate and rhythm without murmur or gallop. ABDOMEN: Soft. Colostomy healthy. Wound VAC in place. Blake output 2030/24 hours. LABORATORY DATA: White count 11, hemoglobin 7.2. Sodium 140, potassium 4.0, chloride 113, BUN and c reatinine 21 and 0.64. X-ray looks improved. ASSESSMENT AND PLAN: The patient is doing well. She has been extubated. ARDS is improving. increase her diet. Anticipate she will need rehabilitation to improve her physical status. She is o n 20 mg methylprednisolone b.i.d. IV. Hopefully, Dr. Orantes can wean that soon. Would continue her IV antibiotics for now. We will increase her activity. Expect her to be transferred to [facility] tomorrow.
[2018-01-15] MEDS: Enoxaparin Sodium 40 MG/0.4 ML SYRINGE SC SCH (20:47)
[2018-01-16] MEDS: Piperacillin/Tazobactam 4.5 GM in Sodium Chloride 0.9% 100 ML IVPB SCH ×2 (04:22→09:30)
[2018-01-16 05:04] LABS: Band 1 % (5-11); Hemoglobin 8.5 g/dL (12.0-16.0); Hypochromia SLIGHT = 6-15 cells (100X) (0-5/hpf); Lymphocytes 8 % (21-51); MDiff Complete? YES; Mean Corpuscular HGB CONC 32.8 g/dL (32.0-36.0); Mean Corpuscular Hemoglobin 30.4 pg (27.0-31.0); Mean Corpuscular Volume 92.6 fL (78.0-98.0); Mean Platelet Volume 7.6 fL (7.4-10.4); Monocytes 1 % (0-10); Neutrophil 90 % (42-75); PLT Morphology Comment Appears Increased; Platelet Count 484 thou/uL (130-400); RBC Distribution Width 13.3 % (11.5-14.5); Red Blood Cell (RBC) Count 2.81 mill/uL (4.20-5.40); White Blood Cell (WBC) Count 13.2 thou/uL (4.8-10.8)
[2018-01-16 05:11] LABS: Anion Gap 9 mmol/L (10-20); BUN (Urea Nitrogen) 15 mg/dL (9.8-20.1); Calc. Creatinine Clearance 111 mL/min (70-130); Calcium 8.6 mg/dL (7.8-10.44); Carbon Dioxide 23 mmol/L (23-31); Chloride 113 mmol/L (98-107); Estimated GFR-MDRD 88; Glucose 115 mg/dL (83-110); Potassium 3.2 mmol/L (3.5-5.1); Sodium 142 mmol/L (136-145)
[2018-01-16] MEDS: Ondansetron HCl/PF 4 MG/2 ML Vial IVP PRN (05:28)
[2018-01-16] MEDS ORDERED: Potassium Chloride 20 MEQ TAB PO SCH ×2 (07:45→14:00)
--- NOTE | 2018-01-16 08:54 | RAD ---
PORTABLE CHEST: History: Respiratory distress. Comparison: Prior day's study. FINDINGS: Endotracheal and NG tubes have been removed. Right subclavian line is unchanged in position. Parenchy mal lung changes are stable. IMPRESSION: Stable chest other than removal of the endotracheal and NG tubes. POS: [facility]
--- NOTE | 2018-01-16 09:24 | PRG ---
DATE OF SERVICE: 01/16/2018 SUBJECTIVE: Ms. Braga is doing well. She is in ICU. She was extubated yesterday. She is sitting up in a chair eating breakfast, regular. She is wearing oxygen. She is without complaint. She is conversive and oriented. PHYSICAL EXAMINATION: VITAL SIGNS: Blood pressure 148/70, heart rate 79, sats 99% on supplemental oxygen. LUNGS: A few rhonchi in the bases. No wheezing. CARDIAC: Regular rate and rhythm without murmur or gallop. ABDOMEN: Soft, bowel sounds present, colostomy healthy with stool in the bag. EXTREMITIES: Unremarkable. LABORATORY: This morning her white count is 13, hemoglobin 8.5. Basic metabolic profile normal with a potassium of 3.2, BUN 15, creatinine 0.66. Accu-Cheks 143 and 115. BNP 110. ASSESSMENT AND PLAN: 1. Adult respiratory distress syndrome, now extubated, markedly improved. Treatment per Pulmonary. She states nebulizers make her jittery and skin splotchy and have discontinued these and will allow Pulmonary Medicine to her reassess need for nebulizer, a different nebulizer that does not disagree w ith her 2. Ischemic colitis, status post colon resection, Alvaro's procedure, colostomy. Intestinal tract is working. From surgical standpoint, I think we can discontinue her intravenous antibiotics if thi s is okay with Pulmonary Medicine will discontinue these. If she needs more antibiotics these can be given orally. 3. On methylprednisolone. This needs to be weaned changed to oral and eventually discontinued. 4. Rehab consult. 5. Increase activity. 6. Move to the surgical floor. 7. Low potassium, replace orally.
--- NOTE | 2018-01-16 10:18 | PDOC.PN ---
- Subjective Encounter Start Date: 01/16/18 Encounter Start Time: 07:40 pt is seated in chair, doing well, Patient seen and examined. No overnight events - Objective Resuscitation Status: Resuscitation Status FULL:Full Resuscitation MAR Reviewed: Yes Vital Signs & Weight: Vital Signs (12 hours) Temp Pulse Resp Pulse Ox 01/16/18 04:00 99 F 01/16/18 02:03 80 14 100 Weight Admit Weight 212 lb 11.937 oz Weight 206 lb 12.697 oz Most Recent Monitor Data Heart Rate from ECG 92 NIBP 140/69 NIBP BP-Mean 92 Respiration from ECG 19 SpO2 92 I&O: 01/15/18 01/16/18 01/17/18 06:59 06:59 06:59 Intake Total 2495.2 972.6 100 Output Total 2380 3600 60 Balance 115.2 -2627.4 40 Result Diagrams: 01/16/18 04:35 01/16/18 04:35 EKG Reviewed by me: Yes Phys Exam - Physical Examination Constitutional: NAD HEENT: PERRLA, moist MMs, sclera anicteric Neck: no JVD, supple Respiratory: no wheezing, no rales, no rhonchi Cardiovascular: RRR, no significant murmur, no rub Gastrointestinal: soft, non-tender, no distention, positive bowel sounds wound vac in place Musculoskeletal: no edema, pulses present Neurological: non-focal, normal sensation Psychiatric: normal affect, A&O x 3 Skin: no rash, normal turgor Dx/Plan (1) ARDS (adult respiratory distress syndrome) Code(s): J80 - ACUTE RESPIRATORY DISTRESS SYNDROME Status: Resolved Comment : s/p Bronchoscopy (2) Acute bacterial peritonitis Code(s): K65.9 - PERITONITIS, UNSPECIFIED Status: Acute Comment: Continue Zosyn, s/p bowel resection, wound vac (3) Acute respiratory insufficiency, postoperative Code(s): J95.89 - OTH POSTPROC COMPLICATIONS AND DISORDERS OF RESP SYS, NEC Status: Resolved Comment: (4) Anemia due to blood loss, acute Code(s): D62 - ACUTE POSTHEMORRHAGIC ANEMIA Status: Acute Comment: monitor CBC (5) Gangrene of colon Code(s): K55.049 - ACUTE INFARCTION OF LARGE INTESTINE, EXTENT UNSPECIFIED Status: Acute Comment: s/p colectomy (6) Hypokalemia Code(s): E87.6 - HYPOKALEMIA Status: Acute Comment: Resolving, serial K+ monitoring (7) Hypomagnesemia Code(s): E83.42 - HYPOMAGNESEMIA Status: Resolved (8) Hypophosphatemia Code(s): E83.39 - OTHER DISORDERS OF PHOSPHORUS METABOLISM Status: Resolved (9) Lactic acidosis Code(s): E87.2 - ACIDOSIS Status: Resolved (10) Severe sepsis Code(s): A41.9 - SEPSIS, UNSPECIFIED ORGANISM; R65.20 - SEVERE SEPSIS WITHOUT SEPTIC SHOCK Status: Resolved Comment: Critical support, resolved (11) Depression Code(s): F32.9 - MAJOR DEPRESSIVE DISORDER, SINGLE EPISODE, UNSPECIFIED Status : Chronic (12) Dyslipidemia Code(s): E78.5 - HYPERLIPIDEMIA, UNSPECIFIED Status: Chronic (13) Hypertension Code(s): I10 - ESSENTIAL (PRIMARY) HYPERTENSION Status: Chronic (14) Obesity (BMI 30.0-34.9) Code(s): E66.9 - OBESITY, UNSPECIFIED Status: Chronic (15) Metabolic acidosis Code(s): E87.2 - ACIDOSIS Status: Resolved (16) Pulmonary vascular congestion Code(s): R09.89 - OTH SYMPTOMS AND SIGNS INVOLVING THE CIRC AND RESP SYSTEMS Status: Resolved (17) Delirium Code(s): R41.0 - DISORIENTATION, UNSPECIFIED Status: Resolved (18) Acute respiratory failure with hypoxia Code(s): J96.01 - ACUTE RESPIRATORY FAILURE WITH HYPOXIA Status: Resolved Comment: - Plan cont current plan of care, PT/OT * medication reviewed as below * symptomatic treatment * transfer to surgical floor * discharge planning * dc zosyn and solumedrol if pulmonary ok * swing bed on discharge. Review of Systems - Review of Systems ENT: negative: Ear Pain, Ear Discharge, Nose Pain, Nose Discharge, Nose Congestion, Mouth Pain, Mouth Swelling, Throat Pain, Throat Swelling, Other Respiratory: negative: Cough, Dry, Shortness of Breath, Hemoptysis, SOB with Excertion, Pleuritic Pain, Sputum, Wheezing Cardiovascular: negative: chest pain, palpitations, orthopnea, paroxysmal nocturnal dyspnea, edema, light headedness, other Gastrointestinal: negative: Nausea, Vomiting, Abdominal Pain, Diarrhea, Constipation, Melena, Hematochezia, Other Genitourinary: negative: Dysuria, Frequency, Incontinence, Hematuria, Retention , Other Musculoskeletal: negative: Neck Pain, Shoulder Pain, Arm Pain, Back Pain, Hand Pain, Leg Pain, Foot Pain, Other - Medications/Allergies Allergies/Adverse Reactions: Allergies Allergy/AdvReac Type Severity Reaction Status Date / Time egg Allergy Mild Verified 10/08/13 11:43 Medications: Current Medications Enoxaparin Sodium (Lovenox) 40 mg SC 2100 [facility] Last Admin: 01/15/18 20:47 Dose: 40 mg Guaifenesin (Robitussin Sf) 200 mg PO Q6H PRN PRN Reason: Cough Last Admin: 01/06/18 04:02 Dose: 200 mg Piperacillin Sod/Tazobactam (Sod 4.5 gm/ Sodium Chloride) 100 mls @ 200 mls/hr IVPB 0400,1000,1600,2200 [facility] Last Admin: 01/16/18 09:30 Dose: 100 mls Magnesium Sulfate 1 gm/ Sodium (Chloride) 102 mls @ 102 mls/hr IV PRN PRN PRN Reason: MAG LEVEL 1.4 - 2.0 Magnesium Sulfate 2 gm/ Device 100 mls @ 100 mls/hr IVPB ASDIR PRN PRN Reason: MAGNESIUM < 1.4 Ibuprofen (Motrin) 600 mg PO Q6H PRN PRN Reason: Pain MILD Magnesium Oxide (Magnesium Oxide) 400 mg PO BIDPRN PRN PRN Reason: FOR SERUM MAG 1.4 - 2.0 Magnesium Oxide (Magnesium Oxide) 800 mg PO PRN PRN PRN Reason: FOR SERUM MAG < 1.4 Methylprednisolone Sodium Succinate (Solu-Medrol) 20 mg IVP BID [facility] Last Admin: 01/16/18 09:29 Dose: 20 mg Miscellaneous Medication (Phos-Nak) 1 pkt PO TIDPRN PRN PRN Reason: FOR PHOS LEVEL 1.0 - 1.8 Miscellaneous Medication (Phos-Nak) 2 pkt PO TIDPRN PRN PRN Reason: FOR PHOS LEVEL 0.5 - 1.0 Pantoprazole Sodium (Protonix) 40 mg PO DAILY [facility] Last Admin: 01/16/18 09:29 Dose: 40 mg Sodium Chloride (Flush - Normal Saline) 10 ml IVF DAILY [facility] Last Admin: 01/16/18 09:29 Dose: 10 ml Sodium Chloride (Flush - Normal Saline) 10 ml IVF PRN PRN PRN Reason: Saline Flush Last Admin: 01/06/18 05:30 Dose: 10 ml Tramadol HCl (Ultram) 50 mg PO Q6H PRN PRN Reason: Mild Pain (1-3) 2ND LINE Tramadol HCl (Ultram) 100 mg PO Q6H PRN PRN Reason: Pain
[2018-01-16 13:48] VITALS: BMI 33.3
--- NOTE | 2018-01-16 13:59 | PRG ---
DATE OF SERVICE: 01/16/2018 SERVICE: Pulmonary Medicine. INTERVAL HISTORY: The patient is actually doing quite well from a respiratory standpoint. She sophie nues to have a little lower extremity swelling. She denies any fevers or chills. Otherwise, there h as been no interval change to her condition. She looks less toxic today than she has been reported t o look previously. We are transitioning her out of the ICU to the regular floor. OBJECTIVE: VITAL SIGNS: Afebrile, pulse 78, blood pressure 155/75, respirations 18, saturation 95% on 2 liters nasal cannula. GENERAL: The patient is awake, alert, no apparent distress. LUNGS: Decent air entry. Dependent crackles are present. HEART: Normal rate, regular. ABDOMEN: Soft, nontender, nondistended. Bowel sounds are positive. MUSCULOSKELETAL: No cyanosis or clubbing. There is 2+ pitting in the bilateral lower extremities. NEUROLOGIC: Grossly nonfocal. LABORATORY DATA: WBC 13.2, hemoglobin 8.5, platelets 484,000. Neutrophil count is 90% with 1% bands . Potassium 3.2, chloride 113. Basic metabolic profile is otherwise unremarkable. Bronchial wash i s growing yeast species in 2 out of 2. Bacterial culture is unremarkable. IMAGING: Chest x-ray demonstrates bilateral infiltrates, likely layering effusion on the right, endo tracheal tube, IgA, and intracatheter are all present. There is a right subclavian line noted. ASSESSMENT: 1. Acute hypoxic respiratory failure, improving. 2. Community-acquired pneumonia. 3. Tracheobronchitis secondary to a fungal infection. 4. Status post laparotomy. DISCUSSION AND PLAN: We will complete a 7-day course of antibiotics. A dose of Lasix will be initia jodee. We may introduce a small amount of free water if her p.o. is not adequate. Potassium will be r eplaced today. I will check a magnesium with tomorrow morning's laboratories. All antibiotics will be switched over to p.o.
[2018-01-16] MEDS ORDERED: Furosemide 40 MG/4 ML VIAL SLOW IVP SCH (14:00)
[2018-01-16] MEDS ORDERED: Fluconazole 100 MG TAB PO SCH (14:00)
[2018-01-16] MEDS: Enoxaparin Sodium 40 MG/0.4 ML SYRINGE SC SCH (20:39)
[2018-01-17 05:27] LABS: Anion Gap 8 mmol/L (10-20); BUN (Urea Nitrogen) 13 mg/dL (9.8-20.1); Calc. Creatinine Clearance 112 mL/min (70-130); Calcium 8.5 mg/dL (7.8-10.44); Carbon Dioxide 28 mmol/L (23-31); Chloride 107 mmol/L (98-107); Estimated GFR-MDRD 89; Glucose 85 mg/dL (83-110); Magnesium 1.8 mg/dL (1.6-2.6); Sodium 140 mmol/L (136-145)
[2018-01-17] MEDS ORDERED: Furosemide 40 MG/4 ML VIAL SLOW IVP SCH (06:00)
[2018-01-17] MEDS ORDERED: Potassium Chloride 20 MEQ TAB PO SCH ×2 (07:00→16:00)
[2018-01-17] MEDS ORDERED: Loratadine 10 MG TAB PO PRN (07:54)
[2018-01-17] MEDS ORDERED: Ondansetron ODT 4 MG TAB PO PRN (07:54)
[2018-01-17] MEDS ORDERED: Sodium Chloride 0.65% Nasal 44 ML BOT EA NARE PRN (07:54)
[2018-01-17] MEDS ORDERED: Acetaminophen 325 MG TAB PO PRN (07:54)
[2018-01-17] MEDS ORDERED: Zolpidem Tartrate 5 MG TAB PO PRN (07:54)
[2018-01-17] MEDS ORDERED: hydrALAZINE 20 MG/ML VIAL SLOW IVP PRN (07:54)
[2018-01-17] MEDS ORDERED: Chloraseptic Spray 180 ml Bottle PO PRN (07:54)
[2018-01-17] MEDS ORDERED: Calcium Carbonate 500 MG ChewTAB PO PRN (07:54)
[2018-01-17] MEDS ORDERED: Eucerin (Mineral Oil/Petrolatum,White) 30 gm Jar TOP PRN (07:54)
[2018-01-17] MEDS ORDERED: Artificial Tears 18 DROP/0.9 ML EA EYE PRN (07:54)
[2018-01-17] MEDS ORDERED: Senokot 8.6 MG TAB PO PRN (07:54)
[2018-01-17] MEDS ORDERED: Ondansetron HCl/PF 4 MG/2 ML Vial IVP PRN (07:54)
[2018-01-17] MEDS ORDERED: Milk Of Magnesia 30 ML UDCUP PO PRN (07:54)
[2018-01-17] MEDS: Fluconazole 100 MG TAB PO SCH (07:56)
[2018-01-17] MEDS: Ferrous Sulfate 325 MG TAB PO SCH ×2 (07:56→16:18)
[2018-01-17] MEDS: Famotidine 20 MG TAB PO SCH ×2 (09:17→20:29)
--- NOTE | 2018-01-17 09:52 | PDOC.PN ---
- Subjective Encounter Start Date: 01/17/18 Encounter Start Time: 07:50 Patient seen and examined. No new complaints. No overnight events pt is overall weak but doing well - Objective Resuscitation Status: Resuscitation Status FULL:Full Resuscitation MAR Reviewed: Yes Vital Signs & Weight: Vital Signs (12 hours) Temp Pulse Resp BP Pulse Ox 01/17/18 07:23 97.8 F 71 16 172/80 H 95 01/17/18 03:52 98.7 F 85 20 160/73 H 94 L 01/16/18 23:44 98.8 F 82 16 163/82 H 97 Weight Admit Weight 212 lb 11.937 oz Weight 206 lb 12.697 oz Most Recent Monitor Data Heart Rate from ECG 78 NIBP 154/78 NIBP BP-Mean 103 Respiration from ECG 22 SpO2 92 I&O: 01/16/18 01/17/18 01/18/18 06:59 06:59 06:59 Intake Total 972.6 1562 Output Total 3600 3897 Balance -3407.4 -2495 Result Diagrams: 01/16/18 04:35 01/17/18 05:00 Phys Exam - Physical Examination Constitutional: NAD HEENT: PERRLA, moist MMs, sclera anicteric Neck: no JVD, supple Respiratory: no wheezing, no rales, no rhonchi Cardiovascular: RRR, no significant murmur, no rub Gastrointestinal: soft, no distention, positive bowel sounds wound vac in place, colostomy+ Musculoskeletal: no edema, pulses present Neurological: non-focal, normal sensation, moves all 4 limbs Psychiatric: normal affect, A&O x 3 Skin: no rash, normal turgor Dx/Plan (1) Gangrene of colon Code(s): K55.049 - ACUTE INFARCTION OF LARGE INTESTINE, EXTENT UNSPECIFIED Status: Acute Comment: s/p colectomy (2) Acute bacterial peritonitis Code(s): K65.9 - PERITONITIS, UNSPECIFIED Status: Acute Comment: Continue Zosyn, s/p bowel resection, wound vac (3) ARDS (adult respiratory distress syndrome) Code(s): J80 - ACUTE RESPIRATORY DISTRESS SYNDROME Status: Resolved Comment : s/p Bronchoscopy (4) Acute respiratory insufficiency, postoperative Code(s): J95.89 - OTH POSTPROC COMPLICATIONS AND DISORDERS OF RESP SYS, NEC Status: Resolved Comment: (5) Anemia due to blood loss, acute Code(s): D62 - ACUTE POSTHEMORRHAGIC ANEMIA Status: Acute Comment: monitor CBC (6) Hypokalemia Code(s): E87.6 - HYPOKALEMIA Status: Acute Comment: Resolving, serial K+ monitoring (7) Hypomagnesemia Code(s): E83.42 - HYPOMAGNESEMIA Status: Resolved (8) Hypophosphatemia Code(s): E83.39 - OTHER DISORDERS OF PHOSPHORUS METABOLISM Status: Resolved (9) Lactic acidosis Code(s): E87.2 - ACIDOSIS Status: Resolved (10) Severe sepsis Code(s): A41.9 - SEPSIS, UNSPECIFIED ORGANISM; R65.20 - SEVERE SEPSIS WITHOUT SEPTIC SHOCK Status: Resolved Comment: Critical support, resolved (11) Depression Code(s): F32.9 - MAJOR DEPRESSIVE DISORDER, SINGLE EPISODE, UNSPECIFIED Status : Chronic (12) Dyslipidemia Code(s): E78.5 - HYPERLIPIDEMIA, UNSPECIFIED Status: Chronic (13) Hypertension Code(s): I10 - ESSENTIAL (PRIMARY) HYPERTENSION Status: Chronic (14) Obesity (BMI 30.0-34.9) Code(s): E66.9 - OBESITY, UNSPECIFIED Status: Chronic (15) Metabolic acidosis Code(s): E87.2 - ACIDOSIS Status: Resolved (16) Pulmonary vascular congestion Code(s): R09.89 - OTH SYMPTOMS AND SIGNS INVOLVING THE CIRC AND RESP SYSTEMS Status: Resolved (17) Delirium Code(s): R41.0 - DISORIENTATION, UNSPECIFIED Status: Resolved (18) Acute respiratory failure with hypoxia Code(s): J96.01 - ACUTE RESPIRATORY FAILURE WITH HYPOXIA Status: Resolved Comment: - Plan cont current plan of care, plan discussed w/ family, 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 Review of Systems - Review of Systems ENT: negative: Ear Pain, Ear Discharge, Nose Pain, Nose Discharge, Nose Congestion, Mouth Pain, Mouth Swelling, Throat Pain, Throat Swelling, Other Respiratory: negative: Cough, Dry, Shortness of Breath, Hemoptysis, SOB with Excertion, Pleuritic Pain, Sputum, Wheezing Cardiovascular: negative: chest pain, palpitations, orthopnea, paroxysmal nocturnal dyspnea, edema, light headedness, other Gastrointestinal: negative: Nausea, Vomiting, Abdominal Pain, Diarrhea, Constipation, Melena, Hematochezia, Other Genitourinary: negative: Dysuria, Frequency, Incontinence, Hematuria, Retention , Other Musculoskeletal: negative: Neck Pain, Shoulder Pain, Arm Pain, Back Pain, Hand Pain, Leg Pain, Foot Pain, Other Skin: negative: Rash, Lesions, Douglas, Bruising, Other - Medications/Allergies Allergies/Adverse Reactions: Allergies Allergy/AdvReac Type Severity Reaction Status Date / Time egg Allergy Mild Verified 10/08/13 11:43 Medications: Current Medications Acetaminophen (Tylenol) 650 mg PO Q4H PRN PRN Reason: Headache/Fever or Mild Pain Artificial Tears (Tears Naturale) 0 drop EA EYE PRN PRN PRN Reason: Dry Eyes Calcium Carbonate (Tums) 1,000 mg PO Q4H PRN PRN Reason: Heartburn or Indigestion Enoxaparin Sodium (Lovenox) 40 mg SC 2100 [facility] Last Admin: 01/16/18 20:39 Dose: 40 mg Famotidine (Pepcid) 20 mg PO BID [facility] Last Admin: 01/17/18 09:17 Dose: 20 mg Ferrous Sulfate (Feosol) 325 mg PO BID[facility] Last Admin: 01/17/18 07:56 Dose: 325 mg Fluconazole (Diflucan) 100 mg PO DAILY [facility] Stop: 01/22/18 09:01 Last Admin: 01/17/18 07:56 Dose: 100 mg Guaifenesin (Robitussin Sf) 200 mg PO Q6H PRN PRN Reason: Cough Last Admin: 01/06/18 04:02 Dose: 200 mg Hydralazine HCl (Apresoline) 10 mg SLOW IVP Q4H PRN PRN Reason: Systolic BP > 180 Loratadine (Claritin) 10 mg PO DAILYPRN PRN PRN Reason: Sinus Symptoms Magnesium Hydroxide (Milk Of Magnesium) 30 ml PO DAILYPRN PRN PRN Reason: Constipation Mineral Oil/White Petrolatum (Eucerin Cream) 0 gm TOP BIDPRN PRN PRN Reason: Dry Skin Ondansetron HCl (Zofran Odt) 4 mg PO Q6H PRN PRN Reason: Nausea/Vomiting Ondansetron HCl (Zofran) 4 mg IVP Q6H PRN PRN Reason: Nausea/Vomiting Pantoprazole Sodium (Protonix) 40 mg PO DAILY [facility] Last Admin: 01/17/18 07:57 Dose: 40 mg Phenol (Chloraseptic Crosby 180 Ml Bot) 0 ml PO PRN PRN PRN Reason: Sore Throat Potassium Chloride (K-Dur) 40 meq PO 0700 [facility] Stop: 01/17/18 10:00 Last Admin: 01/17/18 07:56 Dose: 40 meq Potassium Chloride (K-Dur) 40 meq PO 1600 [facility] Stop: 01/17/18 19:00 Senna (Senokot) 2 tab PO HSPRN PRN PRN Reason: Constipation Sodium Chloride (Flush - Normal Saline) 10 ml IVF DAILY [facility] Last Admin: 01/17/18 07:57 Dose: 10 ml Sodium Chloride (Flush - Normal Saline) 10 ml IVF PRN PRN PRN Reason: Saline Flush Last Admin: 01/06/18 05:30 Dose: 10 ml Sodium Chloride (Orange Nasal Crosby 0.65%) 0 ml EA NARE QIDPRN PRN PRN Reason: Nasal Congestion Tramadol HCl (Ultram) 50 mg PO Q6H PRN PRN Reason: Mild Pain (1-3) 2ND LINE Tramadol HCl (Ultram) 100 mg PO Q6H PRN PRN Reason: Pain Zolpidem Tartrate (Ambien) 5 mg PO HSPRN PRN PRN Reason: Insomnia
[2018-01-17] MEDS: traMADol HCl 50 MG TAB PO PRN (10:18)
[2018-01-17 10:40] LABS: Bilirubin Negative (Negative); Blood, Urine Negative (Negative); Clarity CLEAR (Clear); Glucose, Urine (Dipstick) Negative (Negative); Leukocyte Negative (Negative); Nitrite Negative (Negative); Protein, Urine (Dipstick) Negative (Neg-Trace); Specific Gravity, Urine 1.003 (1.002-1.036); Urobilinogen 0.2 mg/dL (0.2-1.0)
[2018-01-17 10:43] LABS: Bacteria/HPF None Seen HPF (None Seen); Hyaline Casts/LPF 0-3 HYALINE CAST LPF (0-3 Hyaline); Pathc Cast-AUWi Flag 0.14 (0-2.49); RBC/HPF None Seen HPF (0-3); Squamous Epithelial None Seen HPF (0-3); WBC/HPF None Seen HPF (0-3)
--- NOTE | 2018-01-17 11:34 | DIS ---
DATE OF ADMISSION: 01/04/2018 DATE OF DISCHARGE: 01/17/2018 PRIMARY CARE PHYSICIAN: Wilfredo Mohan M.D. DISCHARGE DISPOSITION: Swing bed. PRIMARY DISCHARGE DIAGNOSES: 1. Acute gangrenous of colon due to colonic ischemia. 2. Acute bacterial peritonitis. 3. Status post colectomy and colostomy. 4. Acute anemia due to blood loss. 5. Adult respiratory distress syndrome. 6. Acute respiratory failure. 7. Abnormal electrolytes. 8. Severe sepsis with acute organ dysfunction on admission. 9. Tracheobronchitis due to yeast. SECONDARY DISCHARGE DIAGNOSES: Hypertension, dyslipidemia, depression, obesity. PRIMARY PROCEDURE AND OPERATION: Colectomy and colostomy placement by Dr. Orr, central line placement, endotracheal intubation and mechanical ventilator support. RADIOLOGICAL INVESTIGATION: Chest x-ray showed findings suggestive of acute respiratory distress syndrome. Echocardiography showed normal EF, large pleural effusion. SIGNIFICANT LABORATORY DATA: WBC 13.2, hemoglobin 8.5, platelet 484. Sodium 140, potassium 3.0, BUN 13, creatinine 0.65. BNP 110. Urinalysis normal. Respiratory culture grew yeast. Peritoneal fluid culture negative. DISCHARGE MEDICATIONS: Diflucan 100 mg p.o. daily for 7 days, Protonix 40 mg p.o. daily, ferrous sulfate 325 mg p.o. b.i.d., amitriptyline 25 mg p.o. at bedtime, Lipitor 20 mg p.o. at bedtime, lisinopril 20 mg p.o. daily. CONTRAINDICATIONS: None. CODE STATUS: FULL CODE. INPATIENT CONSULTANTS: Pulmonary group was managing ventilator. Dr. Orr and surgery group was managing surgical part. TEST RESULTS PENDING ON DISCHARGE: None. ALLERGIES: No known drug allergy. DISCHARGE PLAN: Post hospital, the patient is planned for discharge to swing bed. Subsequently, the patient will follow up with primary care physician, Dr. Orr as instructed. The patient will need wound care at swing bed, colostomy care, PT, OT. HOSPITAL COURSE: A 72-year-old female who was admitted on 02/03/[address] Cummings. On admission, the patient was having acute abdominal pain. The patient was septic. She was having lactic acidosis, metabolic acidosis. CT of the abdomen and pelvis found with gangrenous colon. Patient also had acute abdomen. Patient required surgery. Laparotomy was performed and colon was resected and colostomy was placed and wound was treated with wound vacuum. After the surgery, the patient required intubation for postoperative respiratory insufficiency, but the next day, the patient was extubated. Patient was continued with broad spectrum antibiotic therapy with Zosyn. The patient's condition deteriorated. She developed ARDS. She required reintubation, because she did not tolerate noninvasive ventilator. The patient remained intubated and she was treated with antibiotic, Solu- Medrol. She had bronchoscopy done, which ultimately grew yeast. The patient also developed fluid overload status, which was treated with Lasix. The patient had abnormal electrolytes that was corrected with replacement while in CCU. Eventually, the patient was extubated and patient did very well after extubation and then we transferred her to surgical floor where we continued with PT, OT. This patient still has wound VAC. She has colostomy. She is tolerating diet well. Her abnormal electrolytes are replaced. She is kept on Diflucan for tracheobronchitis from yeast. The patient is overall doing very well. She needs more PT, OT, wound care. She will follow up with Dr. Orr. I spoke with Dr. Orr and he cleared her for discharge. She is going to go to swing bed for more PT, OT. Paper work for discharge done. Discharge medication reconciliation done. NNEKA
--- NOTE | 2018-01-17 13:17 | PRG ---
DATE OF SERVICE: 01/17/2018 SERVICE: Pulmonary Medicine. INTERVAL HISTORY: The patient's swelling and breathing has improved dramatically. She has been weaned down to room air. She denies any current chest pain, nausea, vomiting, fevers or chills. Otherwise, there has been no interval change to her condition and she is otherwise without complaint. Her band count is low, and her neutrophil count is dropping. OBJECTIVE: VITAL SIGNS: Afebrile, pulse 80, blood pressure 116/68, respirations 16, saturation 94% on room air. GENERAL: The patient is awake, alert, no apparent distress. LUNGS: Excellent air entry. Dependent crackles are minimal. There is no prolonged expiratory phase or wheezing present. HEART: Normal rate, regular. ABDOMEN: Soft. Tender to palpation throughout. No rebound or guarding is present. Bowel sounds are active. Colostomy in place MUSCULOSKELETAL: No cyanosis or clubbing. There is diffuse 1-2+ pitting throughout the bilateral lower extremities, but the pitting in the arms has gone. NEUROLOGIC: Grossly nonfocal. LABORATORY DATA: WBC 13.2, hemoglobin 8.5, platelets 484,000. Basic metabolic profile is essentially unremarkable except for potassium of 3.0, magnesium 1.8. BNP continues to trend downward. Respiratory culture is growing yeast in 2 out of 2. Bacterial cultures are unremarkable. ASSESSMENT: 1. Acute hypoxic respiratory failure. 2. Community-acquired pneumonia, status post full course of antibiotics. 3. Tracheobronchitis secondary to fungal infection which we are treating. 4. Status post laparotomy, DISCUSSION AND PLAN: We will complete our 7 days of antifungal medication. We will continue to diurese the patient, so she returns to euvolemia. Potassium will once again be replaced and will also replace the magnesium. Pulmonary Critical Care will continue to follow along, but from my perspective, she is stable for transition out of the hospital. She has no further requirements for pulmonary or critical care opinion, so I will sign off. Please call with additional questions or concerns. NNEKA
--- NOTE | 2018-01-17 13:42 | PRG ---
DATE OF SERVICE: 01/17/2018 Ms. Braga is doing well today. She is tolerating her diet. She is sitting up in a chair. OBJECTIVE: GENERAL: She is alert and oriented. VITAL SIGNS: Temperature 98.3 degrees, 80, 116/68. LUNGS: Clear to auscultation. CARDIAC: Regular rate and rhythm without murmur or gallop. ABDOMEN: Soft, nontender. Colostomy healthy. Midline wound VAC in place. EXTREMITIES: Unremarkable. Her potassium is 3. ASSESSMENT AND PLAN: 1. Hypokalemia, 2 doses of potassium today. 2. Deconditioning, transfer to [facility]. I have talked to Dr. Diop, Critical [facility] who states she is stable for transfer. I talked to Dr. Martines who also states she is st able for transfer. 3. Adult respiratory distress syndrome, resolved. 4. The patient is doing well. Follow up in my office in 2-3 weeks. 5. Colostomy care. 6. Encourage activity.
[2018-01-17] MEDS: Enoxaparin Sodium 40 MG/0.4 ML SYRINGE SC SCH (20:30)
[2018-01-18 05:43] LABS: Anion Gap 10 mmol/L (10-20); BUN (Urea Nitrogen) 8 mg/dL (9.8-20.1); Calc. Creatinine Clearance 120 mL/min (70-130); Calcium 8.8 mg/dL (7.8-10.44); Carbon Dioxide 28 mmol/L (23-31); Chloride 103 mmol/L (98-107); Estimated GFR-MDRD Greater than 90; Glucose 92 mg/dL (83-110); Potassium 3.2 mmol/L (3.5-5.1); Sodium 138 mmol/L (136-145)
--- NOTE | 2018-01-18 07:56 | PRG ---
DATE OF SERVICE: 01/18/2018 HISTORY: Ms. Braga was scheduled to go to a swing bed yesterday, but the hospital was full and tra nsfer held. This morning she complains of right upper quadrant pain. She is not hungry. OBJECTIVE: VITAL SIGNS: 98.6 degrees, 78, 134/71. LABORATORY DATA: None. LUNGS: Clear to auscultation. CARDIAC: Regular rate and rhythm without murmur or gallop. ABDOMEN: Soft. Mild tenderness in her right upper quadrant, wound VACs central wound intact. Colos jesus healthy with gas and stool in the bag. LABORATORY: None this morning. ASSESSMENT AND PLAN: Abdominal pain. Hold discharge. Check ultrasound of the gallbladder, abdomina l x-rays. Make further recommendations pending these. NOTE: Dr. Martini is covering for me today.
--- NOTE | 2018-01-18 09:40 | PDOC.PN ---
- Subjective Encounter Start Date: 01/18/18 Encounter Start Time: 08:00 pt reported pain in right upper quadrant, no fever, has very poor apatite - Objective Resuscitation Status: Resuscitation Status FULL:Full Resuscitation MAR Reviewed: Yes Vital Signs & Weight: Vital Signs (12 hours) Temp Pulse Resp BP Pulse Ox 01/18/18 08:56 98.7 F 83 22 H 172/79 H 96 01/18/18 03:33 98.6 F 78 18 134/71 95 01/18/18 01:52 91 L 01/17/18 23:48 98.3 F 86 16 147/81 H 92 L Weight Admit Weight 212 lb 11.937 oz Weight 206 lb 12.697 oz Most Recent Monitor Data Heart Rate from ECG 78 NIBP 154/78 NIBP BP-Mean 103 Respiration from ECG 22 SpO2 92 I&O: 01/17/18 01/18/18 01/19/18 06:59 06:59 06:59 Intake Total 1562 1800 Output Total 3897 3450 Balance -5805 -6746 Result Diagrams: 01/18/18 11:10 01/18/18 11:10 Radiology Reviewed by me: Yes (xray abdomen, US abdomen noted) Phys Exam - Physical Examination Constitutional: NAD HEENT: PERRLA, moist MMs, sclera anicteric Neck: no JVD, supple Respiratory: no wheezing, no rales, no rhonchi Cardiovascular: RRR, no significant murmur, no rub Gastrointestinal: soft wound vac in place, colostomy+ mild discomfort in RUQ Musculoskeletal: no edema, pulses present Neurological: non-focal, normal sensation, moves all 4 limbs Psychiatric: normal affect, A&O x 3 Skin: no rash, normal turgor Dx/Plan (1) Gangrene of colon Code(s): K55.049 - ACUTE INFARCTION OF LARGE INTESTINE, EXTENT UNSPECIFIED Status: Acute Comment: s/p colectomy (2) Acute bacterial peritonitis Code(s): K65.9 - PERITONITIS, UNSPECIFIED Status: Acute Comment: Continue Zosyn, s/p bowel resection, wound vac (3) ARDS (adult respiratory distress syndrome) Code(s): J80 - ACUTE RESPIRATORY DISTRESS SYNDROME Status: Resolved Comment : s/p Bronchoscopy (4) Acute respiratory insufficiency, postoperative Code(s): J95.89 - OTH POSTPROC COMPLICATIONS AND DISORDERS OF RESP SYS, NEC Status: Resolved Comment: (5) Anemia due to blood loss, acute Code(s): D62 - ACUTE POSTHEMORRHAGIC ANEMIA Status: Acute Comment: monitor CBC (6) Hypokalemia Code(s): E87.6 - HYPOKALEMIA Status: Acute Comment: Resolving, serial K+ monitoring (7) Hypomagnesemia Code(s): E83.42 - HYPOMAGNESEMIA Status: Resolved (8) Hypophosphatemia Code(s): E83.39 - OTHER DISORDERS OF PHOSPHORUS METABOLISM Status: Resolved (9) Lactic acidosis Code(s): E87.2 - ACIDOSIS Status: Resolved (10) Severe sepsis Code(s): A41.9 - SEPSIS, UNSPECIFIED ORGANISM; R65.20 - SEVERE SEPSIS WITHOUT SEPTIC SHOCK Status: Resolved Comment: Critical support, resolved (11) Depression Code(s): F32.9 - MAJOR DEPRESSIVE DISORDER, SINGLE EPISODE, UNSPECIFIED Status : Chronic (12) Dyslipidemia Code(s): E78.5 - HYPERLIPIDEMIA, UNSPECIFIED Status: Chronic (13) Hypertension Code(s): I10 - ESSENTIAL (PRIMARY) HYPERTENSION Status: Chronic (14) Obesity (BMI 30.0-34.9) Code(s): E66.9 - OBESITY, UNSPECIFIED Status: Chronic (15) Metabolic acidosis Code(s): E87.2 - ACIDOSIS Status: Resolved (16) Pulmonary vascular congestion Code(s): R09.89 - OTH SYMPTOMS AND SIGNS INVOLVING THE CIRC AND RESP SYSTEMS Status: Resolved (17) Delirium Code(s): R41.0 - DISORIENTATION, UNSPECIFIED Status: Resolved (18) Acute respiratory failure with hypoxia Code(s): J96.01 - ACUTE RESPIRATORY FAILURE WITH HYPOXIA Status: Resolved Comment: (19) RUQ abdominal pain Code(s): R10.11 - RIGHT UPPER QUADRANT PAIN Status: Acute - Plan cont current plan of care, plan discussed w/ family * spoke with dr wilkins, will get US abdomen and xray * medication reviewed as below * symptomatic treatment * will cancel discharge today * monitor today * overall vitals stable. * will get HIDA scan to rule out acalculous cholecystitis * discussed with family bedside Review of Systems - Review of Systems Eyes: negative: Pain, Vision Change, Conjunctivae Inflammation, Eyelid Inflammation, Redness, Other ENT: negative: Ear Pain, Ear Discharge, Nose Pain, Nose Discharge, Nose Congestion, Mouth Pain, Mouth Swelling, Throat Pain, Throat Swelling, Other Respiratory: negative: Cough, Dry, Shortness of Breath, Hemoptysis, SOB with Excertion, Pleuritic Pain, Sputum, Wheezing Cardiovascular: negative: chest pain, palpitations, orthopnea, paroxysmal nocturnal dyspnea, edema, light headedness, other Gastrointestinal: Abdominal Pain. negative: Nausea, Vomiting, Diarrhea, Constipation, Melena, Hematochezia, Other Genitourinary: negative: Dysuria, Frequency, Incontinence, Hematuria, Retention , Other Musculoskeletal: negative: Neck Pain, Shoulder Pain, Arm Pain, Back Pain, Hand Pain, Leg Pain, Foot Pain, Other Skin: negative: Rash, Lesions, Douglas, Bruising, Other - Medications/Allergies Allergies/Adverse Reactions: Allergies Allergy/AdvReac Type Severity Reaction Status Date / Time egg Allergy Mild Verified 10/08/13 11:43 Medications: Current Medications Acetaminophen (Tylenol) 650 mg PO Q4H PRN PRN Reason: Headache/Fever or Mild Pain Artificial Tears (Tears Naturale) 0 drop EA EYE PRN PRN PRN Reason: Dry Eyes Calcium Carbonate (Tums) 1,000 mg PO Q4H PRN PRN Reason: Heartburn or Indigestion Enoxaparin Sodium (Lovenox) 40 mg SC 2100 [facility] Last Admin: 01/17/18 20:30 Dose: 40 mg Famotidine (Pepcid) 20 mg PO BID [facility] Last Admin: 01/17/18 20:29 Dose: 20 mg Ferrous Sulf[facility] ([facility]ol) [facility] Last Admin: 01/17/18 16:18 Dose: 325 mg Fluconazole (Diflucan) 100 mg PO DAILY [facility] Stop: 01/22/18 09:01 Last Admin: 01/17/18 07:56 Dose: 100 mg Guaifenesin (Robitussin Sf) 200 mg PO Q6H PRN PRN Reason: Cough Last Admin: 01/06/18 04:02 Dose: 200 mg Hydralazine HCl (Apresoline) 10 mg SLOW IVP Q4H PRN PRN Reason: Systolic BP > 180 Loratadine (Claritin) 10 mg PO DAILYPRN PRN PRN Reason: Sinus Symptoms Magnesium Hydroxide (Milk Of Magnesium) 30 ml PO DAILYPRN PRN PRN Reason: Constipation Mineral Oil/White Petrolatum (Eucerin Cream) 0 gm TOP BIDPRN PRN PRN Reason: Dry Skin Ondansetron HCl (Zofran Odt) 4 mg PO Q6H PRN PRN Reason: Nausea/Vomiting Ondansetron HCl (Zofran) 4 mg IVP Q6H PRN PRN Reason: Nausea/Vomiting Pantoprazole Sodium (Protonix) 40 mg PO DAILY [facility] Last Admin: 01/17/18 07:57 Dose: 40 mg Phenol (Chloraseptic [place] 180 Ml Bot) 0 ml PO PRN PRN PRN Reason: Sore Throat Potassium Chloride (K-Dur) 40 meq PO BID-[facility] Senna (Senokot) 2 tab PO HSPRN PRN PRN Reason: Constipation Sodium Chloride (Flush - Normal Saline) 10 ml IVF DAILY [facility] Last Admin: 01/17/18 07:57 Dose: 10 ml Sodium Chloride (Flush - Normal Saline) 10 ml IVF PRN PRN PRN Reason: Saline Flush Last Admin: 01/06/18 05:30 Dose: 10 ml Sodium Chloride ([place] Nasal [place] 0.65%) 0 ml EA NARE QIDPRN PRN PRN Reason: Nasal Congestion Tramadol HCl (Ultram) 50 mg PO Q6H PRN PRN Reason: Mild Pain (1-3) 2ND LINE Last Admin: 01/18/18 05:41 Dose: 50 mg Tramadol HCl (Ultram) 100 mg PO Q6H PRN PRN Reason: Pain Last Admin: 01/17/18 10:18 Dose: 100 mg Zolpidem Tartrate (Ambien) 5 mg PO HSPRN PRN PRN Reason: Insomnia
[2018-01-18] MEDS: Famotidine 20 MG TAB PO SCH ×2 (09:57→20:51)
[2018-01-18] MEDS: Fluconazole 100 MG TAB PO SCH (09:57)
[2018-01-18] MEDS: Ferrous Sulfate 325 MG TAB PO SCH ×2 (09:58→17:43)
[2018-01-18] MEDS: Potassium Chloride 20 MEQ TAB PO SCH ×2 (09:58→17:43)
[2018-01-18] MEDS: traMADol HCl 50 MG TAB PO PRN ×2 (09:59→20:51)
--- NOTE | 2018-01-18 09:59 | RAD ---
TWO VIEWS ABDOMEN UPRIGHT CHEST: History: Right upper quadrant pain. Comparison: 09-17-17 FINDINGS: Supine and upright views of the abdomen and upright view of the chest shows a nonspecific, nonobstruc jodee bowel gas pattern. Post-surgical changes are seen in the abdomen with midline skin zahida. No fr ee air or air fluid levels are seen in the upright examination. Air is seen throughout the colon to t he level of the rectum. The heart is upper limits of normal in size. The central venous catheter is unchanged in position. Th e other lines and tubes have been removed. There appears to be small bilateral pleural effusions. Air space opacity seen in the right upper lobe and right lower lobe which may represent infiltrates. IMPRESSION: 1. Nonobstructed bowel gas pattern. 2. Right pulmonary infiltrates. 3. Bilateral pleural effusions. POS: TPC
--- NOTE | 2018-01-18 11:04 | ULT ---
ULTRASOUND ABDOMEN LIMITED: (RIGHT UPPER QUADRANT) Date: 01/18/18 Time: 0930 hours HISTORY: 72-year-old female with right upper quadrant abdominal pain. FINDINGS: There is a significant right pleural effusion. Hepatic echogenicity is diffusely slightly increased, which may or may not represent fatty liver. Gallbladder is distended. There is a thin, subtle hypoechoic stripe around the gallbladder, questiona ble for minimal pericholecystic edema. Negative sonographic Espinal's sign. Gallbladder wall thickness is 2-3 mm, within normal limits. No gallstones or sludge identified. No hydronephrosis of right kidney. Nonspecific sonographic appearance of the pancreatic head and body. Tail of pancreas obscured by shad owing from bowel gas. Common duct caliber is 5 mm. IMPRESSION: 1. Distended gallbladder with minimal questionable pericholecystic edema. 2. No cholelithiasis identified. 3. Right pleural effusion. GUSTAVO Lovett POS: KENNEDY
[2018-01-18 11:34] LABS: #Basophils 0.1 thou/uL (0.0-0.2); #Eosinphils 0.1 thou/uL (0.0-0.7); #Monocytes 0.9 thou/uL (0.11-0.59); %Basophils 0.6 % (0.0-1.0); %Eosinophils 0.9 % (0.0-10.0); %Lymphocytes 8.3 % (21.0-51.0); %Monocytes 7.2 % (0.0-10.0); %Neutrophils 83.1 % (42.0-75.0); Hemoglobin 9.2 g/dL (12.0-16.0); Mean Corpuscular HGB CONC 32.5 g/dL (32.0-36.0); Mean Corpuscular Hemoglobin 29.9 pg (27.0-31.0); Mean Corpuscular Volume 91.9 fL (78.0-98.0); Mean Platelet Volume 7.2 fL (7.4-10.4); Platelet Count 607 thou/uL (130-400); RBC Distribution Width 13.5 % (11.5-14.5); Red Blood Cell (RBC) Count 3.06 mill/uL (4.20-5.40); White Blood Cell (WBC) Count 12.1 thou/uL (4.8-10.8)
[2018-01-18 12:00] LABS: ALT (SGPT) 55 U/L (8-55); AST (SGOT) 28 U/L (5-34); Albumin 3.2 g/dL (3.4-4.8); Alkaline Phosphatase 78 U/L (40-150); Anion Gap 10 mmol/L (10-20); BUN (Urea Nitrogen) 7 mg/dL (9.8-20.1); Bilirubin, Total 0.6 mg/dL (0.2-1.2); Calc. Creatinine Clearance 116 mL/min (70-130); Calcium 8.7 mg/dL (7.8-10.44); Carbon Dioxide 28 mmol/L (23-31); Chloride 101 mmol/L (98-107); Estimated GFR-MDRD Greater than 90; Globulin 2.6 g/dL (2.4-3.5); Glucose 107 mg/dL (83-110); Potassium 3.4 mmol/L (3.5-5.1); Protein, Total 5.8 g/dL (6.0-8.3); Sodium 136 mmol/L (136-145)
--- NOTE | 2018-01-18 18:56 | NM ---
HEPATOBILIARY SCAN: 01/18/18 Patient is given 5 millicuries of technetium labeled Mebrofenin IV. Imaging of the right upper quadra nt obtained. INDICATIONS: Acalculous cholecystitis. Gallbladder begins to visualize at approximately 37 minutes. Intestinal activity is confirmed. The patient is given CCK slow IV. The gallbladder ejection fraction recorded at 35%. IMPRESSION: 1. Gallbladder visualization is upper normal time. 2. Decreased gallbladder ejection fraction. POS: AGW
[2018-01-18] MEDS: Enoxaparin Sodium 40 MG/0.4 ML SYRINGE SC SCH (20:53)
[2018-01-19] MEDS ORDERED: Ibuprofen 200 MG TAB PO SCH (02:30)
[2018-01-19] MEDS: Potassium Chloride 20 MEQ TAB PO SCH (09:30)
[2018-01-19] MEDS: Ferrous Sulfate 325 MG TAB PO SCH (09:30)
[2018-01-19] MEDS: Famotidine 20 MG TAB PO SCH (09:30)
[2018-01-19] MEDS: Fluconazole 100 MG TAB PO SCH (09:30)
[2018-01-19] MEDS ORDERED: traMADol HCl 50 MG TAB ONE (09:39)
--- NOTE | 2018-01-19 12:20 | RAD ---
TWO VIEW CHEST: INDICATION: Short of breath. COMPARISON: 01/15/2018. FINDINGS: Interval removal of prior endotracheal tube and enteric catheter. Bibasilar densities are present. There is a right central venous catheter with tip overlying the SVC region. Bilateral interstitial p rominence of the lungs is present with interspersed areas of reticulonodular opacity and a wedge-shap ed density of the superolateral right upper lung. Cardiac silhouette is enlarged. There is prominen ce of pulmonary vasculature. IMPRESSION: 1. Bibasilar densities indicating pleural fluid with adjacent atelectasis and/or pneumonia. 2. Wedge-shaped density of th superolateral right upper hemithorax which could be on the basis of pn eumonitis and/or atelectasis. 3. Bilateral interstitial reticulonodularity. An atypical infection is the diagnosis of exclusion. Underlying neoplasm is not excluded. When referencing 01/15/2018 exam, findings are grossly stable. Continued followup as warranted. POS: DEANGELO
[2018-01-19 13:07] VITALS: BP 124/65; TEMP 98.4
--- NOTE | 2018-01-19 14:41 | PDOC.PN ---
- Subjective Encounter Start Date: 01/19/18 Encounter Start Time: 09:15 Patient seen and examined. No new complaints. No overnight events pt has right side pleuritic pain - Objective Resuscitation Status: Resuscitation Status FULL:Full Resuscitation MAR Reviewed: Yes Vital Signs & Weight: Vital Signs (12 hours) Temp Pulse Resp BP Pulse Ox 01/19/18 11:00 98.4 F 85 18 124/65 96 01/19/18 08:00 98.1 F 80 18 158/83 H 93 L Weight Admit Weight 212 lb 11.937 oz Weight 206 lb 12.697 oz Most Recent Monitor Data Heart Rate from ECG 78 NIBP 154/78 NIBP BP-Mean 103 Respiration from ECG 22 SpO2 92 I&O: 01/18/18 01/19/18 01/20/18 06:59 06:59 06:59 Intake Total 1800 340 Output Total 3450 10 Balance -1650 330 Result Diagrams: 01/18/18 11:10 01/18/18 11:10 Radiology Reviewed by me: Yes (chest xray reviewed, hida scan is negative) Phys Exam - Physical Examination Constitutional: NAD HEENT: PERRLA, moist MMs, sclera anicteric Neck: no JVD, supple Respiratory: no wheezing, no rhonchi right side rales+ Cardiovascular: RRR, no significant murmur, no rub Gastrointestinal: soft, non-tender, no distention, positive bowel sounds wound vac in place, colostomy+ Musculoskeletal: no edema, pulses present Neurological: non-focal, normal sensation, moves all 4 limbs Psychiatric: normal affect, A&O x 3 Skin: no rash, normal turgor Dx/Plan (1) Gangrene of colon Code(s): K55.049 - ACUTE INFARCTION OF LARGE INTESTINE, EXTENT UNSPECIFIED Status: Acute Comment: s/p colectomy (2) Acute bacterial peritonitis Code(s): K65.9 - PERITONITIS, UNSPECIFIED Status: Acute Comment: Continue Zosyn, s/p bowel resection, wound vac (3) ARDS (adult respiratory distress syndrome) Code(s): J80 - ACUTE RESPIRATORY DISTRESS SYNDROME Status: Resolved Comment : s/p Bronchoscopy (4) Acute respiratory insufficiency, postoperative Code(s): J95.89 - OTH POSTPROC COMPLICATIONS AND DISORDERS OF RESP SYS, NEC Status: Resolved Comment: (5) Anemia due to blood loss, acute Code(s): D62 - ACUTE POSTHEMORRHAGIC ANEMIA Status: Acute Comment: monitor CBC (6) Hypokalemia Code(s): E87.6 - HYPOKALEMIA Status: Acute Comment: Resolving, serial K+ monitoring (7) Hypomagnesemia Code(s): E83.42 - HYPOMAGNESEMIA Status: Resolved (8) Hypophosphatemia Code(s): E83.39 - OTHER DISORDERS OF PHOSPHORUS METABOLISM Status: Resolved (9) Lactic acidosis Code(s): E87.2 - ACIDOSIS Status: Resolved (10) Severe sepsis Code(s): A41.9 - SEPSIS, UNSPECIFIED ORGANISM; R65.20 - SEVERE SEPSIS WITHOUT SEPTIC SHOCK Status: Resolved Comment: Critical support, resolved (11) Depression Code(s): F32.9 - MAJOR DEPRESSIVE DISORDER, SINGLE EPISODE, UNSPECIFIED Status : Chronic (12) Dyslipidemia Code(s): E78.5 - HYPERLIPIDEMIA, UNSPECIFIED Status: Chronic (13) Hypertension Code(s): I10 - ESSENTIAL (PRIMARY) HYPERTENSION Status: Chronic (14) Obesity (BMI 30.0-34.9) Code(s): E66.9 - OBESITY, UNSPECIFIED Status: Chronic (15) Metabolic acidosis Code(s): E87.2 - ACIDOSIS Status: Resolved (16) Pulmonary vascular congestion Code(s): R09.89 - OTH SYMPTOMS AND SIGNS INVOLVING THE CIRC AND RESP SYSTEMS Status: Resolved (17) Delirium Code(s): R41.0 - DISORIENTATION, UNSPECIFIED Status: Resolved (18) Acute respiratory failure with hypoxia Code(s): J96.01 - ACUTE RESPIRATORY FAILURE WITH HYPOXIA Status: Resolved Comment: (19) RUQ abdominal pain Code(s): R10.11 - RIGHT UPPER QUADRANT PAIN Status: Acute Comment: pleuritic , so supected related with pleuritis, vs pneumonia - Plan cont current plan of care, plan discussed w/ family, 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 Review of Systems - Review of Systems Eyes: negative: Pain, Vision Change, Conjunctivae Inflammation, Eyelid Inflammation, Redness, Other ENT: negative: Ear Pain, Ear Discharge, Nose Pain, Nose Discharge, Nose Congestion, Mouth Pain, Mouth Swelling, Throat Pain, Throat Swelling, Other Respiratory: Pleuritic Pain. negative: Cough, Dry, Shortness of Breath, Hemoptysis, SOB with Excertion, Sputum, Wheezing Cardiovascular: negative: chest pain, palpitations, orthopnea, paroxysmal nocturnal dyspnea, edema, light headedness, other Gastrointestinal: negative: Nausea, Vomiting, Abdominal Pain, Diarrhea, Constipation, Melena, Hematochezia, Other Genitourinary: negative: Dysuria, Frequency, Incontinence, Hematuria, Retention , Other Musculoskeletal: negative: Neck Pain, Shoulder Pain, Arm Pain, Back Pain, Hand Pain, Leg Pain, Foot Pain, Other Skin: negative: Rash, Lesions, Douglas, Bruising, Other - Medications/Allergies Allergies/Adverse Reactions: Allergies Allergy/AdvReac Type Severity Reaction Status Date / Time egg Allergy Mild Verified 10/08/13 11:43 Medications: Current Medications Acetaminophen (Tylenol) 650 mg PO Q4H PRN PRN Reason: Headache/Fever or Mild Pain Artificial Tears (Tears Naturale) 0 drop EA EYE PRN PRN PRN Reason: Dry Eyes Calcium Carbonate (Tums) 1,000 mg PO Q4H PRN PRN Reason: Heartburn or Indigestion Enoxaparin Sodium (Lovenox) 40 mg SC 2100 [facility] Last Admin: 01/18/18 20:53 Dose: 40 mg Famotidine (Pepcid) 20 mg PO BID [facility] Last Admin: 01/19/18 09:30 Dose: 20 mg [facility]ous [facility] ([facility]) [facility] Last Admin: 01/19/18 09:30 Dose: 325 mg Fluconazole (Diflucan) 100 mg PO DAILY [facility] Stop: 01/22/18 09:01 Last Admin: 01/19/18 09:30 Dose: 100 mg Guaifenesin (Robitussin Sf) 200 mg PO Q6H PRN PRN Reason: Cough Last Admin: 01/06/18 04:02 Dose: 200 mg Hydralazine HCl (Apresoline) 10 mg SLOW IVP Q4H PRN PRN Reason: Systolic BP > 180 Loratadine (Claritin) 10 mg PO DAILYPRN PRN PRN Reason: Sinus Symptoms Magnesium Hydroxide (Milk Of Magnesium) 30 ml PO DAILYPRN PRN PRN Reason: Constipation Mineral Oil/White Petrolatum (Eucerin Cream) 0 gm TOP BIDPRN PRN PRN Reason: Dry Skin Ondansetron HCl (Zofran Odt) 4 mg PO Q6H PRN PRN Reason: Nausea/Vomiting Ondansetron HCl (Zofran) 4 mg IVP Q6H PRN PRN Reason: Nausea/Vomiting Pantoprazole Sodium (Protonix) 40 mg PO DAILY [facility] Last Admin: 01/19/18 09:30 Dose: 40 mg Phenol (Chloraseptic [place] 180 Ml Bot) 0 ml PO PRN PRN PRN Reason: Sore Throat Potassium Chloride (K-Dur) 40 meq PO BID-[facility] Last Admin: 01/19/18 09:30 Dose: 40 meq Senna (Senokot) 2 tab PO HSPRN PRN PRN Reason: Constipation Sodium Chloride (Flush - Normal Saline) 10 ml IVF DAILY [facility] Last Admin: 01/19/18 09:30 Dose: 10 ml Sodium Chloride (Flush - Normal Saline) 10 ml IVF PRN PRN PRN Reason: Saline Flush Last Admin: 01/06/18 05:30 Dose: 10 ml Sodium Chloride ([place] Nasal [place] 0.65%) 0 ml EA NARE QIDPRN PRN PRN Reason: Nasal Congestion Tramadol HCl (Ultram) 50 mg PO Q6H PRN PRN Reason: Mild Pain (1-3) 2ND LINE Last Admin: 01/18/18 05:41 Dose: 50 mg Tramadol HCl (Ultram) 100 mg PO Q6H PRN PRN Reason: Pain Last Admin: 01/18/18 20:51 Dose: 100 mg Zolpidem Tartrate (Ambien) 5 mg PO HSPRN PRN PRN Reason: Insomnia
[2018-01-19] MEDS: traMADol HCl 50 MG TAB PO PRN (16:00)
--- NOTE | 2018-01-19 16:18 | PRG ---
DATE OF SERVICE: 01/19/2018 SERVICE: Pulmonary Medicine. INTERVAL HISTORY: I was asked to come back and look at the patient once again. She has been having some pleuritic type of chest discomfort. It has been there for quite some period of time. Over the past 3 days, it has actually gotten a little bit better. She describes this as a sharp discomfort wh enever she takes a deep breath. She has undergone an extensive evaluation. She was initiated on johnathan e Levaquin. She is being considered for discharge today. There is some concern that there is a poss ibility she could develop some infectious process. As such, I was asked to take a look at the patien t one more time and review the studies. PHYSICAL EXAMINATION: VITAL SIGNS: Afebrile, pulse 85, blood pressure 124/65, respirations 18, saturation 96% on room air. GENERAL: The patient is awake and alert, in no apparent distress. LUNGS: Bilateral crackles are present. There is no prolonged expiratory phase or wheezing appreciat ed. HEART: Normal rate, regular. ABDOMEN: Soft, nontender, nondistended. Bowel sounds are positive. MUSCULOSKELETAL: No cyanosis or clubbing. There is trace pitting in the bilateral lower extremities . NEUROLOGIC: Grossly nonfocal. LABORATORY DATA: WBC 12.1, hemoglobin 9.2, platelets 607,000. Neutrophil count is improving to 83%. Band count has been low over the last several days. Potassium 3.4. Basic metabolic profile is ess entially unremarkable otherwise. Liver function studies are perfectly unremarkable. Urinalysis is n egative. Bronchial washings are growing yeast species in 2 out of 2. The peritoneal fluid cultures are negative to date. IMAGING: Abdominal ultrasound demonstrates no biliary duct dilation. There is distended gallbladder with minimal questionable pericholecystic edema. Right pleural effusion is identified. Acute abdom inal series demonstrate nonobstructive bowel gas pattern. Right pulmonary infiltrate/effusion is pre sent. Bilateral effusions are noted. HIDA scan demonstrates no evidence of biliary obstruction. Th ere is a slightly decreased gallbladder ejection fraction. 1. Chest x-ray from today demonstrates bibasilar densities consistent with pleural fluid. Wedge-sha ped density in the superolateral right upper hemithorax, likely representing atelectasis. Interstiti al fullness bilaterally, possibly an atypical infectious process. There is a right subclavian centra l venous catheter which terminates in good position. ASSESSMENT AND PLAN: 1. Pleuritic chest discomfort. 2. Atelectasis of the bilateral lung ramos with possible small pleural effusions. 3. Acute hypoxic respiratory failure. 4. Community-acquired pneumonia, status post full course of antibiotics. 5. Tracheobronchitis secondary to fungal infection which is being treated. 6. Status post laparotomy. DISCUSSION AND PLAN: I truthfully see no need for additional antibiotics. She can be considered for transition out of the hospital. I would like for her to complete a 5-7 day course of antifungal med ication. I have counseled the patient with her family at bedside. If she has increasing altered men tation, fever profile, or coughs up green or yellow sputum, she is to notify the healthcare community immediately and we can consider initiation of antibiotics at that time. The patient tells me that s he feels better day by day. She is not having lightheadedness anymore, the pleuritic chest discomfor t is actually abating, and she was able to walk further than she has walked in over 3 weeks. She did 60 feet today and she felt stronger doing so today compared to the previous days. I do believe that increasing exertion and mobility through time is going to help resolve the atelectasis and fluid. A s such, I think that it would be in her best interest to relocate to a rehabilitation facility as velvet ckly as possible. Pulmonary will continue to follow intermittently if she remains in house, but my s uspicion is that she will be going out today.
--- NOTE | 2018-01-19 21:09 | PRG ---
DATE OF SERVICE: 01/19/2018 SUBJECTIVE: The patient feels better with less pain. CBC not obtained today, PA and lateral chest x -ray reveals consolidation and effusions base atelectasis. OBJECTIVE: VITAL SIGNS: Temperature 98.4 degrees, 85, 124/65. LUNGS: Clear to auscultation. No rales. No wheezing. CARDIAC: Regular rate and rhythm. ABDOMEN: Soft. Minimal tenderness in the right upper quadrant, no guarding, rebound. Colostomy hea lthy. Midline wound looks healthy. Wound VAC to be changed today. ASSESSMENT AND PLAN: Atelectasis, effusion. I have discussed with Dr. Diop. Patient could be tr ansferred to halfway unit with aggressive mobility up in a chair, ambulation to work on Travefy toilet. Although the HIDA scan reveals a slightly decreased ejection fraction, it does visualiz e and there was no evidence of acute cholecystitis. She does not have a prior history of biliary sym ptoms and cholecystectomy was not indicated. I believe her pain is secondary to pleurisy, atelectasi s, hypoxia, community-acquired pneumonia and started Levaquin p.o. She is on Diflucan for a tracheal bronchitis. From my standpoint, patient can be discharged to a halfway unit and I have enco uraged her to be out of bed and ambulating frequently. She will follow up in my office in 2 weeks.
== END 2018-01-19 16:05 | disposition swing bed (61) | DRG 853 ==
LOC: ERS 01:21 → 2NO 05:27 → CCU 06:21 → SJJU 01-16 11:25
PROVIDERS: ADMIT Hospitalist; ATTEND Hospitalist
PROC: 0DTL0ZZ Resection of Transverse Colon, Open Approach (ICD-10-PCS; 2018-01-04)
PROC: 05H533Z Insertion of Infusion Device into Right Subclavian Vein, Percutaneous Approach (ICD-10-PCS; 2018-01-04)
PROC: 0BC18ZZ Extirpation of Matter from Trachea, Via Natural or Artificial Opening Endoscopic (ICD-10-PCS; 2018-01-06)
PROC: 5A1955Z Respiratory Ventilation, Greater than 96 Consecutive Hours (ICD-10-PCS; 2018-01-06)
PROC: 0BH17EZ Insertion of Endotracheal Airway into Trachea, Via Natural or Artificial Opening (ICD-10-PCS; 2018-01-06)
PROC: 0BJ08ZZ Inspection of Tracheobronchial Tree, Via Natural or Artificial Opening Endoscopic (ICD-10-PCS; principal; 2018-01-13)
DX: R65.21 Severe sepsis with septic shock (principal); K55.039 Acute (reversible) ischemia of large intestine, extent unspecified; K65.2 Spontaneous bacterial peritonitis; J18.9 Pneumonia, unspecified organism; J95.822 Acute and chronic postprocedural respiratory failure; K55.049 Acute infarction of large intestine, extent unspecified; E87.2 Acidosis; K57.20 Diverticulitis of large intestine with perforation and abscess without bleeding; J98.11 Atelectasis; E46 Unspecified protein-calorie malnutrition; D62 Acute posthemorrhagic anemia; K52.9 Noninfective gastroenteritis and colitis, unspecified; I10 Essential (primary) hypertension; G62.9 Polyneuropathy, unspecified; E78.5 Hyperlipidemia, unspecified; R73.9 Hyperglycemia, unspecified; J40 Bronchitis, not specified as acute or chronic; E87.6 Hypokalemia; Z93.3 Colostomy status; E66.9 Obesity, unspecified; Z68.33 Body mass index [BMI] 33.0-33.9, adult; E87.8 Other disorders of electrolyte and fluid balance, not elsewhere classified; F32.9 Major depressive disorder, single episode, unspecified
CPT/HCPCS: 36415; 36416; 71045; 71046; 74022; 76705; 78227; 80048; 80053; 81001; 82533; 82805; 83605; 83735; 83880; 84100; 85007; 85025; 85027; 86850; 86900; 86901; 87070; 87205; 88307; 93005; 93306; 94002; 94003; 94640; 94660; 96361; 96374; A9537; C9113; G8978-GP-CL; G8978-GP-CN; G8979-GP-CJ; G8979-GP-CK; G8987-GO-CL; G8988-GO-CJ; J0131; J1120; J1650; J1720; J1885; J1940; J2001; J2060; J2250; J2270; J2370; J2405; J2543; J2704; J2920; J3010; J3475; J3480; J7050; J7620; P9045; P9047

== ENCOUNTER 2018-05-08 08:13 | Outpatient (CLI) | payer MEDICARE ==
--- NOTE | 2018-05-08 13:10 | MRI ---
MRI THORACIC SPINE WITH AND WITHOUT CONTRAST: HISTORY: Thoracic spine pain. Numbness and tingling to the arms and fingers. COMPARISON: 10/31/2016 TECHNIQUE: MRI of the thoracic spine is performed with and without intravenous Gadolinium administration. Multi sequential, multiplanar imaging is performed. FINDINGS: Appropriate T1 marrow signal intensity of the thoracic vertebrae. Thoracic spine vertebral body heig ht is maintained. There is no fracture. There is type 1 modic change at T6-T7 and T8-T9. No signif icant STIR hyperintensity to suggest vertebral body edema or ligamentous injury. There is appropriate signal intensity in the visualized mediastinal structures. Chronic changes of t he lung parenchyma are suspected. The visualized upper abdominal solid organs are unremarkable. On the post contrast images, no abnormal enhancement with regard to the thoracic vertebrae. There is mild enhancement associated with the aforementioned modic change. The thoracic cord has a normal size and signal intensity. No cord expansion. No cord malacia. No a bnormal enhancement. The conus medullaris terminates at the upper aspect of L1. Throughout the thoracic spine, there is no high-grade central canal stenosis. No significant neural foraminal narrowing. There is a small central/left paracentral disk protrusion at T7-T8. There is minimal deformity of th e ventral cord. No significant central canal stenosis. IMPRESSION: 1. No significant central canal stenosis or foraminal narrowing throughout the thoracic spine. 2. Type I modic changes of T6-T7 and T8-T9. POS: [facility]
--- NOTE | 2018-05-08 13:22 | MRI ---
MRI CERVICAL SPINE WITH AND WITHOUT CONTRAST: Date: 05/08/18 HISTORY: 72-year-old female with cervical radiculopathy. COMPARISON: 12/04/17. FINDINGS: Cervical spinal cord is normal in size and signal. Vertebral body heights are maintained. There are s crews and anterior metallic plate at C3, C4, C5, C6, and C7. There is ankylosis of facet joints, on t he right at C3-4, C4-5, and C5-6, and on the left at C3-4, and possibly C5-6. Degenerative facet jacobo ges are severe on the left at C2-3, and moderate-severe on the left at C7-T1. They are relatively mil d elsewhere. C1-2: No high grade central stenosis. Moderate to severe osteoarthrosis of right atlantoaxial joint. C2-3: No high grade central stenosis. Disc space maintained. No high grade right neural foraminal st enosis. Mild left neural foraminal stenosis. C3-4: Successful ankylosis across obliterated disc space. No central stenosis. Mild bilateral neural foraminal stenosis. C4-5: The right ankylosed severely hypertrophic osseous facet complex, encroaches upon the right ivelisse ral foramen, causing mild to moderate right neural foraminal stenosis. No significant left neural for aminal stenosis. No high grade central spinal canal stenosis. C5-6: No significant central or neural foraminal stenosis. C6-7: Combination of chronic minimal Grade I anterolisthesis of C6 on C7, plus broad based disc-oste ophytic bar complex which indents the ventral aspect of the spinal canal, causes mild central spinal canal stenosis. Bilateral moderate sized uncinate process osteophytes encroach upon the neural forami na, left larger than right. This causes mild to moderate right neural foraminal stenosis, and severe left neural foraminal stenosis. C7-T1: The high grade left facet degenerative changes causes mild Grade I anterolisthesis of C7 on T 1, and severe left neural foraminal stenosis. There are no high grade right-sided degenerative facet changes. No significant right neural foraminal stenosis, and no central spinal canal stenosis. There has been no major interval change. No abnormal, unexpected enhancement is visualized on the pos tcontrast images. IMPRESSION: 1. Status post anterior cervical diskectomy and fusion at C3-4-5-6. 2. Ankylosis of multiple bilateral facet joints. 3. Severe facet osteoarthrosis on the left at C2-3 and C7-T1. 4. Severe left neural foraminal stenosis at C6-7 and C7-T1. 5. No high grade central spinal canal stenosis at any level. 6. No major interval change. POS: [facility]
[2018-05-08] MEDS ORDERED: Gadobenate Dimeglumine 529 MG/1 ML (20ML VIAL) ONE (13:23)
== END 2018-05-08 08:14 | disposition home or self-care (01) ==
LOC: TBSIIMAG 08:13
PROVIDERS: ATTEND Neurological Surgery
DX: M54.6 Pain in thoracic spine (principal); M47.812 Spondylosis without myelopathy or radiculopathy, cervical region; M47.813 Spondylosis without myelopathy or radiculopathy, cervicothoracic region; M48.02 Spinal stenosis, cervical region; M48.03 Spinal stenosis, cervicothoracic region; M43.22 Fusion of spine, cervical region; Z98.1 Arthrodesis status
CPT/HCPCS: 72156; 72157; 82565; A9577

== ENCOUNTER 2018-05-28 13:46 | Outpatient (CLI) | payer MEDICARE | END 2018-05-28 13:47 | disposition home or self-care (01) | LOC: BICMAMMO 13:46 | PROVIDERS: ATTEND Family Medicine | DX: Z12.31 Encounter for screening mammogram for malignant neoplasm of breast (principal); R92.1 Mammographic calcification found on diagnostic imaging of breast; Z80.3 Family history of malignant neoplasm of breast | CPT/HCPCS: 77063; 77067 ==

== ENCOUNTER 2018-06-27 11:21 | Inpatient (IN) | payer MEDICARE ==
--- NOTE | 2018-06-22 09:26 | HP ---
HISTORY OF PRESENT ILLNESS: Yesenia Braga is a 72-year-old female, undergone on 01/04/2018, laparotomy for peritonitis, ischemic gangrenous colon, resection of distal transverse colon, splenic flexure, descending colon, sigmoid colon with Alvaro pouch marked with a 2-0 Prolene suture, and colon seemed adequately redundant for future reversal as it was mobilized anticipating this. The patient was intubated postop, extubated the next day and transferred home. Postoperatively, the patient has seen Dr. Khan and Gastroenterology, has had a colonoscopy, proctoscopy, and also undergone EKG, echocardiogram, cardiac stress test, finding cardiac function normal without ischemic changes and plan is for laparoscopic colostomy reversal. She will undergo a bowel prep and enema the day prior to the surgery prior to surgery. The patient's echocardiogram done at Dr. Khan's office, 06/13/2018, reveals LV function, ejection fraction 60% to 65%, grade 1 diastolic dysfunction, mild tricuspid and mitral valve regurgitations. Her PET myocardial perfusion scan, May 29, 2018, was unremarkable without ischemia. Dr. Khan has cleared her for surgery without further cardiac workup. The patient understands risks and benefits of the operation and consents. ALLERGIES: NONE, MEDICAL. HABITS: Tobacco, none. Alcohol, none. MEDICATIONS: 1. Tramadol. 2. Lisinopril. 3. Gabapentin. 4. Flexeril. 5. Atorvastatin. 6. Amitriptyline. PAST SURGICAL HISTORY: Carpal tunnel release, hysterectomy, cervical spine surgery, colon resection, colostomy, Alvaro procedure as noted above. Breast biopsy, right benign in 1985. Hysterectomy 03/1986. Trigger finger release of right, 2011 and 1991. Carpal tunnel release, right, 1991 and 2011. Left rotator cuff surgery, 2010. Appendectomy, March 1986. Right rotator cuff repair, 2009. Cervical spine surgery, 2013. Lumbar surgery, L4-L5, L5-S1 in 06/2013. Cataract surgery, right eye, Dr. Ponce, November 2016; left eye, December 01, 2016. PAST MEDICAL HISTORY: Hypertension, neuropathy, cervical spine disease. She is seeing Dr. Bustos in the future, has seen Dr. Vivar. She will have a nerve conduction study in the future, colonoscopy in the last year too, stress test with Dr. Khan that was normal in the last 2 years, repeated recently with normal cardiac workup for this operation. Lumbar disk disease, fibromyalgias, high cholesterol, restless legs syndrome, shingles, peripheral neuropathy, MEDICATIONS: 1. Amitriptyline 25 mg at bedtime. 2. Atorvastatin 20 mg a day. 3. Lisinopril 20 mg a day. 4. Ferrous sulfate a day. 5. MiraLAX a day. 6. Protonix a day. 7. Cymbalta 30 mg a day. FAMILY HISTORY: Noncontributory. HABITS: Tobacco, none. Alcohol, rarely. ALLERGIES: ASPIRIN, TINNITUS. IBUPROFEN, TINNITUS. TYLENOL, INSOMNIA. LYRICA, TINNITUS, SIDE EFFECTS. GABAPENTIN, TINNITUS, SIDE AFFECTS. REVIEW OF SYSTEMS: A 10-point noncontributory. PHYSICAL EXAMINATION: VITAL SIGNS: 168 pounds, 66 inches, 27 BMI, blood pressure 151/76, 70 heart rate. HEAD, EARS, EYES, NOSE, AND THROAT: Unremarkable. LUNGS: Clear to auscultation. CARDIAC: Regular rate and rhythm without murmur or gallop. ABDOMEN: Soft and nontender. Colostomy in place. Midline incision well healed. No hernias. EXTREMITIES: Unremarkable. ASSESSMENT: Undesired colostomy. PLAN: Colostomy reversal, laparoscopically. Risk of open operation discussed. She understands the risks and benefits, and consents. Job ID: [id number]
[2018-06-26 10:37] VITALS: BMI 27.8
[~2018-06-27 11:21] MED LIST: Bupivacaine HCl 0.5%/Epinephrine 1:200,000/PF 30 ml Vial ONE; Glycopyrrolate 0.2 MG/ML 5 ML SYRINGE ONE; Lidocaine 1% PF 5 ML VIAL ONE; Metoprolol Tartrate 5 MG/5 ML VIAL ONE; PROPOFOL 200 MG/20 ML VIAL ONE; Rocuronium Bromide 10 MG/ML (10ML VIAL) ONE
[2018-06-27] MEDS ORDERED: Fentanyl 100 MCG/2 ML VIAL ONE ×5 (11:56→16:14)
[2018-06-27] MEDS ORDERED: Midazolam HCl 2 mg/2 ml Vial ONE (11:56)
[2018-06-27] MEDS ORDERED: Dexamethasone 4 mg/ml Vial ONE (12:06)
[2018-06-27] MEDS ORDERED: MEROPENEM 1 GM/50 ML 1 GM in Premix Bag 1 BAG IVPB SCH (12:15)
[2018-06-27] MEDS ORDERED: Meropenem 2 GM in Admixture Fee 1 EACH IVPB SCH (12:15)
[2018-06-27] MEDS ORDERED: Meropenem 2 GM in Sodium Chloride 0.9% 100 ML IVPB SCH (12:45)
[2018-06-27 12:59] LABS: #Basophils 0.1 thou/uL (0.0-0.2); #Eosinphils 0.2 thou/uL (0.0-0.7); #Lymphocytes 1.3 thou/uL (1.20-3.40); #Monocytes 0.3 thou/uL (0.11-0.59); #Neutrophils 3.6 thou/uL (1.40-6.50); %Basophils 0.9 % (0.0-1.0); %Eosinophils 3.1 % (0.0-10.0); %Lymphocytes 23.6 % (21.0-51.0); %Monocytes 5.5 % (0.0-10.0); %Neutrophils 66.9 % (42.0-75.0); Hemoglobin 12.8 g/dL (12.0-16.0); Hemoglobin A1c 4.7 % (4.0-6.0); Mean Corpuscular Hemoglobin 28.6 pg (27.0-31.0); Mean Corpuscular Volume 86.8 fL (78.0-98.0); Mean Platelet Volume 7.6 fL (7.4-10.4); Platelet Count 292 thou/uL (130-400); RBC Distribution Width 13.5 % (11.5-14.5); Red Blood Cell (RBC) Count 4.46 mill/uL (4.20-5.40); White Blood Cell (WBC) Count 5.5 thou/uL (4.8-10.8)
[2018-06-27 13:01] LABS: Anion Gap 15 mmol/L (10-20); BUN (Urea Nitrogen) 8 mg/dL (9.8-20.1); Calc. Creatinine Clearance 71 mL/min (70-130); Calcium 9.6 mg/dL (7.8-10.44); Carbon Dioxide 24 mmol/L (23-31); Chloride 104 mmol/L (98-107); Estimated GFR-MDRD 68; Glucose 80 mg/dL (83-110); Potassium 3.9 mmol/L (3.5-5.1); Sodium 139 mmol/L (136-145)
[2018-06-27] MEDS ORDERED: Promethazine HCl 25 MG/ML VIAL SLOW IVP PRN (14:36)
[2018-06-27] MEDS ORDERED: Ondansetron HCl/PF 4 MG/2 ML Vial IVP PRN (14:36)
[2018-06-27] MEDS ORDERED: Promethazine HCl 25 MG/ML VIAL IM PRN (14:36)
[2018-06-27] MEDS ORDERED: Morphine 4 MG/ML VIAL SLOW IVP PRN ×2 (15:38)
[2018-06-27] MEDS ORDERED: Ondansetron PF 4 MG/2 ML Vial IVP PRN (15:38)
[2018-06-27] MEDS ORDERED: hydrALAZINE 20 MG/ML VIAL SLOW IVP PRN (15:38)
[2018-06-27] MEDS ORDERED: Polyethylene Glycol 3350 17 GM Packet PO PRN (15:46)
[2018-06-27] MEDS ORDERED: traMADol HCl 50 MG TAB PO PRN (17:00)
[2018-06-27] MEDS: D5 1/2 NS w/20 mEq KCL 1,000 ML IV SCH (18:04)
[2018-06-27] MEDS: Acetaminophen 500 MG TAB PO SCH ×2 (18:05→23:15)
[2018-06-27] MEDS: Famotidine 20 MG TAB PO SCH (21:00)
[2018-06-27] MEDS: DULoxetine 30 MG CAP PO SCH (21:00)
[2018-06-27] MEDS ORDERED: Famotidine/PF 20 mg/2ml Vial SLOW IVP SCH (21:00)
[2018-06-27] MEDS: Atorvastatin Calcium 20 MG TAB PO SCH (21:01)
[2018-06-27] MEDS: Enoxaparin Sodium 40 MG/0.4 ML SYRINGE SC SCH (21:02)
[2018-06-27] MEDS: Amitriptyline HCl 25 MG TAB PO SCH (21:02)
--- NOTE | 2018-06-27 22:06 | OP ---
DATE OF PROCEDURE: 06/27/2018 PREOPERATIVE DIAGNOSIS: Undesired colostomy, status post left colon distal transverse colon and splenic flexure resection for ischemic colon. POSTOPERATIVE DIAGNOSIS: Undesired colostomy, status post left colon distal transverse colon and splenic flexure resection for ischemic colon. PROCEDURE PERFORMED: Laparoscopic adhesiolysis, laparoscopic colostomy reversal with colorectal anastomosis, 33 mm EEA stapler, checked under water, no leak. A small segment of rectosigmoid removed. ANESTHESIA: General anesthesia, TAP block. ESTIMATED BLOOD LOSS: 25 mL. BLOOD TRANSFUSION: None. DESCRIPTION OF PROCEDURE: The patient was taken to the operating room, under general anesthesia, Blake catheter was placed at the beginning of procedure and left in place. Right lateral subcostal incision was made. Pneumoperitoneum to 15 mmHg was obtained with a Veress needle, replaced with a 5 port after prepping the abdomen and draping in routine fashion. Video laparoscope inserted. Right lateral abdomen was free of adhesions. Right mid lateral abdominal incision was made and right lower quadrant lateral incision was made and 5 mm port was placed. Suprapubic midline incision was made, another 5 port was placed. Laparoscopic adhesiolysis was carried out with LigaSure, freeing some omental adhesions from the anterior abdominal wall, freeing the omentum from the distal colon and the colostomy site. At this point, the pelvis was evaluated with the patient in Trendelenburg, small bowel removed from the pelvis and rectal stump identified, dissected free, mobilizing the presacral area. It was then mobilized, freed of adhesions, identifying the right ureter and left ureter, keeping them free of harm. 5 port was replaced with a 12 port, and stapler inserted dividing the rectosigmoid with single fire of BETHANY blue load stapler. This segment of colon was later removed through the old colostomy site. The rectal stump was evaluated and is adequate for anastomosis. Then, my topographical field assistant then dilated the anus and serially placed rectal dilators and a 33 mm stapler into the rectal stump and it was properly positioned and passed with ease. Colostomy was then taken down with a small incision around the old colostomy site resecting the old colostomy which had been closed prior to prepping the abdomen, closed with continuous locking suture of 2-0 silk. Once this was freed from the colostomy site, it was brought out and the segment of colon removed, excised with a cautery and a pursestring suture of 2-0 Prolene was placed around a 33 mm EEA anvil. Once this was completed, this was dropped back into the abdominal cavity and the old segment of rectosigmoid removed from the previous resection and posterior fascia approximated with continuous suture of #1 PDS, anterior fascia with interrupted [id number] sutures of #1 PDS and wound irrigated and pneumoperitoneum re-established, and colorectal anastomosis created under laparoscopic visualization, completing the anastomosis, checked under water without leak. Good hemostasis was noted. No other abnormalities were noted. Pneumoperitoneum irrigant evacuated. All instruments were removed and all laparoscopic incisions approximated with subdermal 4-0 Monocryl and [place] glue applied. Old colostomy site was thoroughly irrigated. Hemostasis was gained with the cautery. Subcutaneous tissue was approximated with 3-0 Monocryl, and interrupted sutures of 3-0 Monocryl and 4-0 Monocryl were used to complete the closure of the old colostomy site. Dermabond applied. The patient tolerated the procedure well. Job ID: [id number]
[2018-06-28] MEDS: D5 1/2 NS w/20 mEq KCL 1,000 ML IV SCH ×2 (01:55→14:33)
[2018-06-28] MEDS: traMADol HCl 50 MG TAB PO PRN ×2 (04:20→14:32)
[2018-06-28] MEDS: Acetaminophen 500 MG TAB PO SCH ×4 (05:24→23:37)
[2018-06-28 05:48] LABS: Anion Gap 11 mmol/L (10-20); BUN (Urea Nitrogen) 8 mg/dL (9.8-20.1); Calc. Creatinine Clearance 73 mL/min (70-130); Carbon Dioxide 25 mmol/L (23-31); Chloride 105 mmol/L (98-107); Estimated GFR-MDRD 70; Glucose 133 mg/dL (83-110); Potassium 4.3 mmol/L (3.5-5.1); Sodium 137 mmol/L (136-145)
[2018-06-28 05:50] LABS: #Lymphocytes 0.7 thou/uL (1.20-3.40); #Monocytes 0.3 thou/uL (0.11-0.59); #Neutrophils 9.4 thou/uL (1.40-6.50); %Basophils 0.2 % (0.0-1.0); %Eosinophils 0.1 % (0.0-10.0); %Lymphocytes 7.1 % (21.0-51.0); %Monocytes 2.7 % (0.0-10.0); %Neutrophils 89.8 % (42.0-75.0); Hemoglobin 11.9 g/dL (12.0-16.0); Mean Corpuscular HGB CONC 32.7 g/dL (32.0-36.0); Mean Corpuscular Hemoglobin 28.5 pg (27.0-31.0); Mean Platelet Volume 7.6 fL (7.4-10.4); Platelet Count 295 thou/uL (130-400); RBC Distribution Width 13.4 % (11.5-14.5); Red Blood Cell (RBC) Count 4.19 mill/uL (4.20-5.40); White Blood Cell (WBC) Count 10.4 thou/uL (4.8-10.8)
[2018-06-28] MEDS ORDERED: Biotin [Biotin] 2,500 MCG PO SCH (09:00)
[2018-06-28] MEDS: Gabapentin 100 MG CAP PO SCH (09:38)
[2018-06-28] MEDS: Lisinopril 20 MG TAB PO SCH (09:39)
[2018-06-28] MEDS: Famotidine 20 MG TAB PO SCH ×2 (09:40→20:25)
[2018-06-28] MEDS: Ferrous Sulfate 325 MG TAB PO SCH (09:42)
[2018-06-28] MEDS: Amitriptyline HCl 25 MG TAB PO SCH (20:25)
[2018-06-28] MEDS: Atorvastatin Calcium 20 MG TAB PO SCH (20:25)
[2018-06-28] MEDS: DULoxetine 30 MG CAP PO SCH (20:25)
[2018-06-28] MEDS: Enoxaparin Sodium 40 MG/0.4 ML SYRINGE SC SCH (20:25)
--- NOTE | 2018-06-28 20:42 | PRG ---
DATE OF SERVICE: 06/28/2018 SUBJECTIVE: Ms. Braga is doing well postop laparoscopic colostomy reversal. OBJECTIVE: VITAL SIGNS: Temperature 97.7 degrees, pulse 68, blood pressure 148/78. This morning, her white count is 10, hemoglobin 11.1. Basic metabolic profile is normal. LUNGS: Clear to auscultation. CARDIAC: Regular rate and rhythm without murmur or gallop. ABDOMEN: Soft, nontender. Surgical wounds look good. Old colostomy site well healed. ASSESSMENT AND PLAN: The patient is doing well. Tolerating diet, having liquid stools. At this point, we will saline lock her, discontinue her IV fluids. We will advance her to regular diet tomorrow. Anticipate discharge home tomorrow. Job ID: [id number]
[2018-06-29] MEDS: traMADol HCl 50 MG TAB PO PRN ×2 (00:47→11:30)
[2018-06-29] MEDS: Acetaminophen 500 MG TAB PO SCH ×2 (05:49→11:28)
[2018-06-29 08:14] VITALS: BP 144/81; TEMP 98.2
[2018-06-29] MEDS: Ferrous Sulfate 325 MG TAB PO SCH (09:18)
[2018-06-29] MEDS: Famotidine 20 MG TAB PO SCH (09:18)
[2018-06-29] MEDS: Gabapentin 100 MG CAP PO SCH (09:18)
[2018-06-29] MEDS: Lisinopril 20 MG TAB PO SCH (09:18)
--- NOTE | 2018-06-29 10:51 | PRG ---
DATE OF SERVICE: 06/29/2018 SUBJECTIVE: Ms. Braga is doing well today. She is tolerating her diet. She has had liquid bowel movements. OBJECTIVE: LUNGS: Clear to auscultation. CARDIAC: Regular rate and rhythm without murmur or gallop. ABDOMEN: Soft, nontender. Laparoscopic wound is well healed. Colostomy site is well healed. No drainage. ASSESSMENT: Status post colostomy reversal 2 days ago. PLAN: Discharge home today. Follow up in my office 2 to 3 weeks. No lifting over 25 to 30 pounds for 6 weeks. Otherwise, shower and bathe. Diet as tolerated. Job ID: [id number]
--- NOTE | 2018-06-29 12:53 | DIS ---
DATE OF ADMISSION: 06/27/2018 DATE OF DISCHARGE: 06/29/2018 DISCHARGE DIAGNOSIS: Undesired colostomy, status post left colon resection for ischemic colon. PROCEDURES THIS HOSPITALIZATION: Laparoscopic colostomy reversal. HISTORY: A 72-year-old female underwent laparotomy, left colon resection, distal transverse, splenic flexure, descending colon, and sigmoid colon with Alvaro pouch marked with 2-0 Prolene. Colon resection for ischemic gangrenous colon. Postoperative intubation, extubated postop day 1. Discharged home eventually. Preoperatively, saw Dr. Khan for Cardiology clearance and Gastroenterology for colonoscopy and proctoscopy. Admitted this hospitalization after a bowel prep for laparoscopic colostomy reversal, which she underwent well without problems and convalesced and tolerated her diet. She is discharged home at this time to resume her home medications and to take Tylenol, Motrin, and Ultram as needed. She will follow up with me in 2 to 3 weeks. Job ID: [id number]
== END 2018-06-29 13:50 | disposition home or self-care (01) | DRG 346 ==
LOC: SURG A 11:21
PROVIDERS: ADMIT Specialist; ATTEND Specialist
PROC: 0DSL4ZZ Reposition Transverse Colon, Percutaneous Endoscopic Approach (ICD-10-PCS; principal; 2018-06-27)
DX: Z43.3 Encounter for attention to colostomy (principal); I10 Essential (primary) hypertension; G62.9 Polyneuropathy, unspecified; E78.00 Pure hypercholesterolemia, unspecified; G25.81 Restless legs syndrome; M79.7 Fibromyalgia; M48.9 Spondylopathy, unspecified; M19.90 Unspecified osteoarthritis, unspecified site; Z90.49 Acquired absence of other specified parts of digestive tract; Z87.19 Personal history of other diseases of the digestive system; Z88.6 Allergy status to analgesic agent; Z91.012 Allergy to eggs
CPT/HCPCS: 36415; 36416; 80048; 83036; 85025; 88304; J0670; J1100; J1650; J2001; J2185; J2250; J2704; J3010; J7050

== ENCOUNTER 2018-07-09 17:59 | Inpatient (IN) | payer MEDICARE ==
[~2018-07-09 17:59] MED LIST changes: -Bupivacaine HCl 0.5%/Epinephrine 1:200,000/PF 30 ml Vial ONE; -Glycopyrrolate 0.2 MG/ML 5 ML SYRINGE ONE; +ISOVUE-370 76%-LOCM 1 ML ONE; +Iopamidol 370 76% 50 ML VIAL FS ONE; -Lidocaine 1% PF 5 ML VIAL ONE; -Metoprolol Tartrate 5 MG/5 ML VIAL ONE; -PROPOFOL 200 MG/20 ML VIAL ONE; -Rocuronium Bromide 10 MG/ML (10ML VIAL) ONE
[2018-07-09 19:04] LABS: #Eosinphils 0.2 thou/uL (0.0-0.7); #Lymphocytes 1.2 thou/uL (1.20-3.40); #Monocytes 0.6 thou/uL (0.11-0.59); #Neutrophils 10.6 thou/uL (1.40-6.50); %Basophils 0.3 % (0.0-1.0); %Eosinophils 1.3 % (0.0-10.0); %Lymphocytes 9.7 % (21.0-51.0); %Neutrophils 83.7 % (42.0-75.0); Mean Corpuscular HGB CONC 33.5 g/dL (32.0-36.0); Mean Corpuscular Volume 86.4 fL (78.0-98.0); Mean Platelet Volume 7.1 fL (7.4-10.4); Platelet Count 442 thou/uL (130-400); RBC Distribution Width 12.5 % (11.5-14.5); Red Blood Cell (RBC) Count 4.14 mill/uL (4.20-5.40); White Blood Cell (WBC) Count 12.7 thou/uL (4.8-10.8)
[2018-07-09 19:26] LABS: ALT (SGPT) 123 U/L (8-55); AST (SGOT) 123 U/L (5-34); Alkaline Phosphatase 259 U/L (40-150); Anion Gap 14 mmol/L (10-20); BUN (Urea Nitrogen) 6 mg/dL (9.8-20.1); Bilirubin, Total 0.7 mg/dL (0.2-1.2); Calc. Creatinine Clearance 0 mL/min (70-130); Calcium 9.8 mg/dL (7.8-10.44); Carbon Dioxide 27 mmol/L (23-31); Chloride 98 mmol/L (98-107); Estimated GFR-MDRD 68; Globulin 3.7 g/dL (2.4-3.5); Glucose 102 mg/dL (83-110); Potassium 3.5 mmol/L (3.5-5.1); Protein, Total 7.7 g/dL (6.0-8.3); Sodium 135 mmol/L (136-145)
[2018-07-09 19:40] LABS: Bilirubin Negative (Negative); Blood, Urine Negative (Negative); Clarity CLEAR (Clear); Glucose, Urine (Dipstick) Negative (Negative); Leukocyte Negative (Negative); Nitrite Negative (Negative); Protein, Urine (Dipstick) Negative (Neg-Trace); Specific Gravity, Urine 1.004 (1.002-1.036); Urobilinogen 0.2 mg/dL (0.2-1.0)
[2018-07-09] MEDS ORDERED: Piperacillin/Tazobactam 4.5 GM VIAL ONE (20:14)
[2018-07-09] MEDS ORDERED: Ondansetron PF 4 MG/2 ML Vial ONE (22:03)
--- NOTE | 2018-07-09 22:51 | CT ---
FExam: CT abdomen and pelvis with IV contrast Provided clinical history: Abdominal pain and fever FINDINGS: Comparison 01/03/2018. The visualized lung bases are free of significant opacity. The liver, spleen, pancreas, kidneys and a drenal glands demonstrate an unremarkable CT appearance. There are inflammatory changes involving the subcutaneous adipose layer of the anterior abdominal wal l left of midline. These predominate overlying the left rectus musculature at about the level of the umbilicus. There are patchy areas of nonorganized fluid density within the subcutaneous adipose layer in this region. Postoperative changes with prior partial colectomy are noted with anastomosis in the region of the re ctum. There is nonspecific stranding of the perirectal fat. Gas is noted within the urinary bladder. There is no bowel dilatation, free intraperitoneal fluid or free intraperitoneal air evident. Small f ocus of gas is seen within the subcutaneous adipose layer of the anterior abdominal wall right of mid line just superficial to the rectus musculature several centimeters caudal to the level of the umbili cus. The osseous structures demonstrate no concerning osteoblastic or osteolytic lesions. IMPRESSION: 1. Inflammatory fat stranding changes compatible with cellulitis along with with phlegmon involving t he anterior abdominal wall left of midline. No evidence for an organized fluid collection to suggest abscess. 2. Perirectal fat stranding. Correlate with concerns for proctitis. 3. Gas within the urinary bladder. Correlate with history of recent catheterization. Bowel to bladder fistula cannot be excluded.
[2018-07-10] MEDS ORDERED: Ondansetron PF 4 MG/2 ML Vial IVP PRN (00:44)
[2018-07-10] MEDS ORDERED: Ondansetron ODT 4 MG TAB SL PRN (00:44)
[2018-07-10 01:03] VITALS: BMI 27.4
[2018-07-10] MEDS ORDERED: Acetaminophen 500 MG TAB PO PRN (10:00)
[2018-07-10] MEDS ORDERED: traMADol HCl 50 MG TAB PO PRN ×2 (10:00)
[2018-07-10] MEDS: Polyethylene Glycol 3350 17 GM Packet PO SCH (10:22)
--- NOTE | 2018-07-10 10:54 | HP ---
HISTORY OF PRESENT ILLNESS: Yesenia Braga is a 72-year-old female undergoing 01/04/2018, laparotomy, resection of gangrenous/ischemic colon, splenic flexure, distal transverse colon, left colon with colostomy. Subsequently, undergoing 06/27/2018, laparoscopic colostomy reversal, 33 mm EEA stapler. Anastomosis was checked under water without leak. She did well postoperatively and discharged home on 06/29/2018. She has done well with good bowel function. She called yesterday afternoon late stating that she had a fever and had increasing pain in her left lower quadrant colostomy site. The patient was recommended to call in oral antibiotics, to be seen in the office, but she was already at the emergency room in [place]. In the emergency room, she was noted to have a temperature of 101 degrees. White count 12 and hemoglobin 12. The patient received vancomycin and Zosyn, was admitted. Since being in the hospital, she is hungry. She has normal bowel function. She does not have any nausea or vomiting. She has been afebrile. Heart rate 81. In the emergency room, she did have a CAT scan of the abdomen and pelvis performed that revealed inflammatory changes around the old colostomy site in left lower quadrant, but no evidence of abscess. Examination this morning reveals induration around the old colostomy site, some mild cellulitis, but no fluctuance. Plan at this time is to allow her to eat, treat her with intravenous antibiotics and observe this. Hopefully, we can avoid drainage, although she may need drainage in the future. Hopefully, we can discharge her home in 1 to 2 days on oral antibiotics and follow up as an outpatient. ALLERGIES: TYLENOL, NSAIDS, TINNITUS. SOCIAL HISTORY: Tobacco, none. Alcohol, none. MEDICATIONS: 1. Lipitor. 2. Amitriptyline. 3. Tylenol p.r.n. 4. Ultram p.r.n. 5. MiraLAX daily. 6. Protonix daily. 7. Lisinopril 20 mg a day. 8. Ferrous sulfate 325 a day. 9. Duloxetine at bedtime. 10. Carisoprodol 350 mg at bedtime p.r.n. 11. Biotin. PAST SURGICAL HISTORY: Colon resection, colostomy, subsequent colostomy reversal, laparoscopy was noted. Past surgical history includes carpal tunnel, hysterectomy, cervical spine surgery, breast biopsy, hysterectomy, trigger finger release, appendectomy, rotator cuff, cervical spine surgery, lumbar surgery. PAST MEDICAL HISTORY: Hypertension, neuropathy, followed by Dr. Bustos. Stress test by Dr. Khan two years ago, normal and repeated recently with normal cardiac workup for this operation described. PHYSICAL EXAMINATION: VITAL SIGNS: 5 foot 5 inches, 165 pounds, 27 BMI, 98.4, 81, 105/65. LUNGS: Clear to auscultation. CARDIAC: Rhythm without murmur or gallop. ABDOMEN: Soft, nontender. Laparoscopic wounds are well healed. Colostomy site, left lower quadrant induration. No fluctuance. Mild redness. ASSESSMENT/PLAN: Cellulitis around the old colostomy site postoperatively, intravenous antibiotics. Plan is as above. Job ID: [id number]
[2018-07-10] MEDS: Piperacillin/Tazobactam 3.375 GM in Sodium Chloride 0.9% 100 ML IVPB SCH ×3 (13:12→23:06)
[2018-07-11] MEDS: Piperacillin/Tazobactam 3.375 GM in Sodium Chloride 0.9% 100 ML IVPB SCH (05:05)
--- NOTE | 2018-07-11 07:47 | PRG ---
DATE OF SERVICE: 07/11/2018 SUBJECTIVE: The patient is afebrile. She is tolerating her diet. She is not having nausea or vomiting. Her pain is better. OBJECTIVE: LUNGS: Clear to auscultation. CARDIAC: Regular rate and rhythm without murmur or gallop. ABDOMEN: Soft. The patient has an indurated area in her old colostomy site, left lower quadrant. This is smaller than it was on admission. ASSESSMENT AND PLAN: Soft tissue infection without abscess, left lower quadrant. Would discharge home today on oral antibiotics. She can follow up in my office next week. She is at risk for developing abscess and might need drainage in the future, but at this time, we will treat this with Augmentin to see if it resolves with oral antibiotics and without incision and drainage. She will follow up in my office in early next week. Job ID: [id number]
[2018-07-11] MEDS: Polyethylene Glycol 3350 17 GM Packet PO SCH ×2 (08:42→09:20)
[2018-07-11] MEDS ORDERED: Amoxicillin/Potassium Clav 500 MG TAB PO SCH (09:00)
[2018-07-11 09:16] VITALS: BP 122/73; TEMP 98.6
--- NOTE | 2018-07-11 11:06 | DIS ---
DATE OF ADMISSION: 07/09/2018 DATE OF DISCHARGE: 07/11/2018 DISCHARGE DIAGNOSIS: Induration, soft tissue at old colostomy site, left lower quadrant. DISCHARGE MEDICATIONS: 1. Augmentin 10 days. 2. Ultram as needed. 3. Resume home medications. FOLLOWUP: Follow up in my office next week. HISTORY: A 72-year-old female who presents with ischemic gangrenous left colon, undergoing Alvaro procedure, colostomy, subsequent colonoscopy, and colostomy takedown, discharged home 2 days after laparoscopic colostomy reversal. She developed pain and fever at the old colostomy site, presented to the emergency room. CAT scan revealed an inflammatory change without an abscess at the old colostomy site. The patient hospitalized subsequently without fever and essentially normal white count. Discharged home with oral Augmentin for 10 days and follow up in my office next week. Diet and activity as tolerated otherwise. Job ID: [id number]
== END 2018-07-11 10:29 | disposition home or self-care (01) | DRG 863 ==
LOC: ERS 17:59 → SURG A 23:10
PROVIDERS: ADMIT Specialist; ATTEND Specialist
DX: T81.49XA Infection following a procedure, other surgical site, initial encounter (principal); L03.311 Cellulitis of abdominal wall; Z90.49 Acquired absence of other specified parts of digestive tract; Z90.710 Acquired absence of both cervix and uterus
CPT/HCPCS: 74177; 80053; 81003; 83605; 85025; 87040; 93005; 96361; 96365; 96366; 96375; J2405; J2543; J3370; J7050; Q9966; Q9967

== ENCOUNTER 2018-08-23 10:34 | Outpatient (CLI) | payer MEDICARE ==
--- NOTE | 2018-08-23 11:01 | BD ---
EXAM: DEXA bone density examination HISTORY: 72-year-old postmenopausal female for screening COMPARISON: None FINDINGS: L1--bone mineral density 0.863 g/sq cm; T score -1.2 L2--bone mineral density 0.873 g/sq cm; T score -1.4 L3--bone mineral density 1.099 g/sq cm; T score 0.1 L4--bone mineral density 1.014 g/sq cm; T score -0.4 Total L1-L4--bone mineral density 0.968 g/sq cm; T score -0.7 Left femoral neck--bone mineral density0.726; T score -1.1 Total proximal left femur--bone mineral density 0.918; T score -0.2 IMPRESSION: Osteopenia This patient has a 10 year WHO fracture risk of a major osteoporotic fracture of 9.9% and of a hip fracture of 1.6%.
== END 2018-08-23 10:35 | disposition home or self-care (01) ==
LOC: BICMAMMO 10:34
PROVIDERS: ATTEND Family Medicine
DX: Z78.0 Asymptomatic menopausal state (principal); M85.89 Other specified disorders of bone density and structure, multiple sites
CPT/HCPCS: 77080

== ENCOUNTER 2018-10-17 05:57 | Day surgery (SDC) | payer MEDICARE ==
[2018-10-15 11:45] VITALS: BMI 28.8
--- NOTE | 2018-10-16 09:12 | HP ---
HISTORY OF PRESENT ILLNESS: The patient is a 72-year-old female with approximately 2-year history of intermittent pain and numbness in the median nerve distribution of her left hand and also trigger in her left index finger. She has had persistent symptoms despite rest, restriction of activity, splinting, and a steroid. She could not tolerate nonsteroidal anti-inflammatory medications. She has had similar symptoms in her right side, which responded to surgery. PAST MEDICAL HISTORY: The patient has a history of high blood pressure, high cholesterol, fibromyalgia, degenerative arthritis of the lumbar spine, restless legs syndrome, and cataracts. MEDICATIONS: Her current medications include: 1. Amitriptyline. 2. Lisinopril. 3. Iron. 4. Protonix. 5. Cymbalta. 6. Lipitor. 7. Calcium. 8. Vitamin D. ALLERGIES: SHE IS ALLERGIC TO ASPIRIN, IBUPROFEN, GABAPENTIN, AND QUESTIONABLY TYLENOL. FAMILY HISTORY: Otherwise unremarkable. SOCIAL HISTORY: Otherwise unremarkable. REVIEW OF SYSTEMS: Otherwise unremarkable. PHYSICAL EXAMINATION: GENERAL: Reveals a healthy female. HEENT: Unremarkable. NECK: Supple. CHEST: Clear. HEART: Regular rate and rhythm. ABDOMEN: Soft and nontender. PELVIC: Deferred. RECTAL: Deferred BREASTS: Deferred. EXTREMITIES: Pertinent findings in the left hand and wrist; there is questionable slight thenar atrophy. There is a positive Phalen test and decreased sensation in the median nerve distribution. Motor exam is intact. There is prominence of the A1 [place] of the index finger and mild triggering with range of motion. There is good capillary refill. DIAGNOSTIC STUDIES: Electrodiagnostic studies performed by Dr. Bustos revealed moderately severe left carpal tunnel syndrome. IMPRESSION: 1. Left carpal tunnel syndrome. 2. Trigger finger, left index finger. PLAN: Endoscopic possible open left carpal tunnel release and left index trigger finger release. The nature of the surgery; length of recovery; and potential complications such as infection, loss of motion, incomplete relief, nerve injury, recurrence, need for additional treatment, and repeat surgery have been discussed in detail. Job ID: [id number]
[2018-10-17 06:34] LABS: #Eosinphils 0.4 thou/uL (0.0-0.7); #Lymphocytes 1.6 thou/uL (1.20-3.40); #Monocytes 0.6 thou/uL (0.11-0.59); #Neutrophils 2.7 thou/uL (1.40-6.50); %Basophils 0.7 % (0.0-1.0); %Eosinophils 7.3 % (0.0-10.0); %Monocytes 10.4 % (0.0-10.0); %Neutrophils 51.6 % (42.0-75.0); Hemoglobin 12.3 g/dL (12.0-16.0); Mean Corpuscular HGB CONC 32.2 g/dL (32.0-36.0); Mean Corpuscular Hemoglobin 28.5 pg (27.0-31.0); Mean Corpuscular Volume 88.7 fL (78.0-98.0); Mean Platelet Volume 7.1 fL (7.4-10.4); Platelet Count 290 thou/uL (130-400); RBC Distribution Width 13.6 % (11.5-14.5); Red Blood Cell (RBC) Count 4.31 mill/uL (4.20-5.40); White Blood Cell (WBC) Count 5.3 thou/uL (4.8-10.8)
[2018-10-17] MEDS ORDERED: Lidocaine 1% (PF) 30 ML VIAL ONE (06:44)
[2018-10-17 06:54] LABS: Anion Gap 11 mmol/L (10-20); BUN (Urea Nitrogen) 8 mg/dL (9.8-20.1); Calc. Creatinine Clearance 76 mL/min (70-130); Calcium 9.6 mg/dL (7.8-10.44); Carbon Dioxide 29 mmol/L (23-31); Chloride 103 mmol/L (98-107); Estimated GFR-MDRD 70; Glucose 85 mg/dL (83-110); Potassium 4.4 mmol/L (3.5-5.1); Sodium 139 mmol/L (136-145)
[2018-10-17] MEDS ORDERED: Fentanyl 100 MCG/2 ML VIAL ONE (07:39)
[2018-10-17] MEDS ORDERED: HYDROcodone/Acetaminophen 5/325 mg Tablet ONE (09:42)
--- NOTE | 2018-10-17 11:14 | OP ---
DATE OF PROCEDURE: 10/17/2018 PREOPERATIVE DIAGNOSES: 1. Left carpal tunnel syndrome. 2. Trigger finger, left index finger. POSTOPERATIVE DIAGNOSES: 1. Left carpal tunnel syndrome. 2. Trigger finger, left index finger. PROCEDURES PERFORMED: 1. Left endoscopic carpal tunnel release. 2. Left index trigger finger release. ANESTHESIA: General. DESCRIPTION OF PROCEDURE: After satisfactory anesthesia was induced in the supine position, the patient was prepped and draped in routine manner. The left arm was elevated and exsanguinated with an Esmarch bandage and the tourniquet inflated to 250 mmHg. A 2-cm transverse incision was made over the proximal wrist flexion crease and carried down through the subcutaneous tissues. Bleeding points were controlled with Bovie cautery. Using sharp and blunt dissection, a distally based flap at the deep forearm fascia was developed and retracted distally. Palmaris longus tendon was retracted radially. Proximal edge of the deep forearm fascia was split under direct visualization with small scissors to make sure there was no proximal impingement of the median nerve. Synovial elevator was introduced beneath the transverse carpal ligament and the synovium cleaned from the under surface. Carpal tunnel dilators were inserted. The Buy[employer] endoscopic carpal tunnel system was introduced beneath the transverse carpal ligament in line with the ring finger. The distal edge of the ligament was easily identified and then divided in a distal to proximal direction by pulling the trigger of the assembly and engaging the knife and withdrawing the scope proximally. This was done in several stages to make sure there was complete division of the transverse carpal ligament, which was documented with video printer. After withdrawing the scope, the carpal tunnel dilator could be inserted in the carpal tunnel and there was markedly improved passage and subcutaneous position of the instrument. The scope was reintroduced into the carpal tunnel. There was wide separation of the two leaves of the transverse carpal ligament and the scope was withdrawn. The wound was thoroughly irrigated and attention was then directed to the index finger. A 1.5-cm longitudinal incision was made over the palpable A1 azalea of the index finger and carried down through the subcutaneous tissues. Bleeding points were controlled with Bovie cautery. The digital neurovascular bundles were protected. Using sharp and blunt dissection, the A1 azalea was identified and then divided in a proximal to distal direction with small scissors and a small segment of the azalea was also removed. The flexor tendons could then be pulled into the wound. There was full range of motion. No triggering. There was moderate synovitis present in the flexor tendon sheath. This wound was irrigated. Both incisions were injected with approximately 9 mL of 1% plain lidocaine. The carpal tunnel incision was closed with a running subcuticular 3-0 nylon and the trigger finger incision was closed with interrupted 3-0 nylon. Sterile dressing was applied. The tourniquet was deflated after 23 minutes. The hand promptly pinked up. The patient was immobilized in a Velcro wrist splint and awakened and taken from the operating room in stable condition. There were no apparent intraoperative complications. The estimated blood loss was negligible. The patient will be discharged home in satisfactory condition, instructed on ice and elevation and given written wound care instructions. She was given a prescription for tramadol 50 mg, 20 tablets with one refill. She will recheck in my office in 10 to 14 days or sooner if there are any problems prior to that time. Job ID: [id number]
[2018-10-17] MEDS ORDERED: PROPOFOL 200 MG/20 ML VIAL ONE (16:35)
[2018-10-17] MEDS ORDERED: Lidocaine 1% PF 5 ML VIAL ONE (16:35)
[2018-10-17] MEDS ORDERED: Ondansetron PF 4 MG/2 ML Vial ONE (16:35)
== END 2018-10-17 10:14 | disposition home or self-care (01) ==
LOC: SDC 05:57
PROVIDERS: ATTEND Orthopaedic Surgery
PROC: 01N54ZZ Release Median Nerve, Percutaneous Endoscopic Approach (ICD-10-PCS; principal; 2018-10-17)
PROC: 0LN80ZZ Release Left Hand Tendon, Open Approach (ICD-10-PCS; 2018-10-17)
DX: G56.02 Carpal tunnel syndrome, left upper limb (principal); M65.322 Trigger finger, left index finger; E78.5 Hyperlipidemia, unspecified; I10 Essential (primary) hypertension; M19.90 Unspecified osteoarthritis, unspecified site; M79.7 Fibromyalgia; M47.816 Spondylosis without myelopathy or radiculopathy, lumbar region; G25.81 Restless legs syndrome; G62.9 Polyneuropathy, unspecified; Z79.52 Long term (current) use of systemic steroids; Z79.899 Other long term (current) drug therapy; Z88.6 Allergy status to analgesic agent; Z88.8 Allergy status to other drugs, medicaments and biological substances; Z91.012 Allergy to eggs
CPT/HCPCS: 36415; 80048; 85025; J0690; J2001; J2405; J2704; J3010

== ENCOUNTER 2019-09-11 13:14 | Outpatient (CLI) | payer MEDICARE ==
--- NOTE | 2019-09-11 13:41 | MMO ---
Bilateral MAMMO Bilat Screen [facility]. CLINICAL HISTORY: Patient is 73 years old and is seen for screening. The patient has the following family history of breast cancer: maternal grandmother, malignant (generic). The patient has no personal history of cancer. The patient has a history of left Excisional Biopsy in 1985 - benign. VIEWS: The views performed were: bilateral craniocaudal with tomosynthesis and bilateral mediolateral oblique with tomosynthesis. FILMS COMPARED: The present examination has been compared to prior imaging studies performed at [facility] on 02/18/2016, 02/20/2017 and 05/28/2018, and at [facility] on 06/04/2014. This study has been interpreted with the assistance of computer-aided detection. MAMMOGRAM FINDINGS: There are scattered fibroglandular densities. There are stable benign appearing calcifications seen in both breasts. There are no suspicious masses, suspicious calcifications, or new areas of architectural distortion. IMPRESSION: THERE IS NO MAMMOGRAPHIC EVIDENCE OF MALIGNANCY. A ROUTINE FOLLOW-UP MAMMOGRAM IN 1 YEAR IS RECOMMENDED. THE RESULTS OF THIS EXAM WERE SENT TO THE PATIENT. ACR BI-RADS Category 2 - Benign finding MAMMOGRAPHY NOTE: 1. A negative mammogram report should not delay a biopsy if a dominant of clinically suspicious mass is present. 2. Approximately 10% to 15% of breast cancers are not detected by mammography. 3. Adenosis and dense breasts may obscure an underlying neoplasm. Reported by: ED JOYNER MD Electonically Signed: [id number]
== END 2019-09-11 13:15 | disposition home or self-care (01) ==
LOC: BICMAMMO 13:14
PROVIDERS: ATTEND Family Medicine
DX: Z12.31 Encounter for screening mammogram for malignant neoplasm of breast (principal); Z80.3 Family history of malignant neoplasm of breast; Z91.89 Other specified personal risk factors, not elsewhere classified
CPT/HCPCS: 77063; 77067

== ENCOUNTER 2020-01-03 07:13 | Outpatient (CLI) | payer MEDICARE, OTHER ==
[2020-01-03 14:18] LABS: #Eosinphils 0.2 thou/uL (0.0-0.7); #Monocytes 0.4 thou/uL (0.11-0.59); #Neutrophils 2.6 thou/uL (1.40-6.50); %Basophils 1.1 % (0.0-1.0); %Eosinophils 3.9 % (0.0-10.0); %Lymphocytes 24.2 % (21.0-51.0); %Neutrophils 61.8 % (42.0-75.0); Hemoglobin 13.6 g/dL (12.0-16.0); Mean Corpuscular HGB CONC 33.6 g/dL (32.0-36.0); Mean Corpuscular Hemoglobin 31.3 pg (27.0-31.0); Mean Corpuscular Volume 93.1 fL (78.0-98.0); Mean Platelet Volume 8.1 fL (7.4-10.4); Platelet Count 257 thou/uL (130-400); RBC Distribution Width 11.6 % (11.5-14.5); Red Blood Cell (RBC) Count 4.34 mill/uL (4.20-5.40); White Blood Cell (WBC) Count 4.2 thou/uL (4.8-10.8)
[2020-01-03 14:47] LABS: Anion Gap 14 mmol/L (10-20); BUN (Urea Nitrogen) 12 mg/dL (9.8-20.1); Calc. Creatinine Clearance 0 mL/min (70-130); Calcium 9.1 mg/dL (7.8-10.44); Carbon Dioxide 24 mmol/L (23-31); Chloride 105 mmol/L (98-107); Estimated GFR-MDRD 65; Glucose 75 mg/dL (83-110); Potassium 4.8 mmol/L (3.5-5.1); Sodium 138 mmol/L (136-145)
[2020-01-04 14:54] LABS: SARS-CoV-2 MS2 Positive; SARS-CoV-2 N Gene Negative; SARS-CoV-2 S Gene Negative; SARS-CoV-2 by NAA Not Detected (NotDetected); SARS-CoV-2 orf1ab Negative
--- NOTE | 2020-01-05 13:09 | EKG ---
Test Reason : Blood Pressure : / mmHG Vent. Rate : 062 BPM Atrial Rate : 062 BPM P-R Int : 184 ms QRS Dur : 086 ms QT Int : 424 ms P-R-T Axes : 043 016 069 degrees QTc Int : 430 ms Normal sinus rhythm Low voltage QRS Borderline ECG No previous ECGs available Confirmed by FREDERICK RYAN MD ([id number]) on 01/05/2020 1:08:49 PM Referred By: GARY Confirmed By:FREDERICK RYAN MD
== END 2020-01-03 07:14 | disposition home or self-care (01) ==
LOC: LABBT 07:13
PROVIDERS: ATTEND Orthopaedic Surgery
DX: Z01.818 Encounter for other preprocedural examination (principal); M65.312 Trigger thumb, left thumb; Z20.828 Contact with and (suspected) exposure to other viral communicable diseases
CPT/HCPCS: 80048; 85025; 93005; U0003; 87635; 93010

== ENCOUNTER 2020-01-08 06:36 | Day surgery (SDC) | payer MEDICARE ==
[2020-01-06 11:30] VITALS: BMI 31.3
--- NOTE | 2020-01-07 15:19 | HP ---
HISTORY OF PRESENT ILLNESS: The patient is a 74-year-old female with a greater than 6-month history of pain and triggering in her left thumb without injury. She has had persistent symptoms despite rest, restriction of activities, and previous cortisone injection which gave temporary relief. PAST MEDICAL HISTORY: Please see the old chart. The patient has had previous left carpal tunnel release a little over one year ago with good results. She has history of fibromyalgia, high blood pressure, high cholesterol, osteoarthritis. CURRENT MEDICATIONS: Include, 1. Lisinopril. 2. Vitamin D. 3. Multivitamins. 4. Amitriptyline. 5. Lipitor. ALLERGIES: SHE IS ALLERGIC TO ASPIRIN AND IBUPROFEN, WHICH CAUSE TINNITIS. ALSO ALLERGIC TO GABAPENTIN, WHICH ALSO CAUSES TINNITIS. FAMILY HISTORY: Otherwise unremarkable. SOCIAL HISTORY: Otherwise unremarkable. REVIEW OF SYSTEMS: Otherwise unremarkable. PHYSICAL EXAMINATION: GENERAL: Reveals a healthy female. HEENT: Unremarkable. NECK: Supple. CHEST: Clear. HEART: Regular rate and rhythm. ABDOMEN: Soft, nontender. PELVIC: Deferred. RECTAL: Deferred. BREASTS: Deferred. EXTREMITIES: Pertinent findings related to the left thumb. There is tenderness and prominence over the A1 azalea. There are locking and catching with flexion and extension. All tendons appear to be intact. Neurovascular exam is intact. IMPRESSION: Left trigger thumb. PLAN: Left trigger thumb release. The nature of surgery, length of recovery, and potential complications such as infection, loss of motion, incomplete relief, digital nerve injury, recurrence, and need for additional treatment and repeat surgery have been discussed in detail. Job ID: [id number]
[2020-01-08] MEDS ORDERED: Lidocaine 1% (PF) 30 ML VIAL ONE (08:23)
[2020-01-08] MEDS ORDERED: PROPOFOL 60 ML ONE (08:30)
[2020-01-08] MEDS ORDERED: Fentanyl 100 MCG/2 ML VIAL ONE (08:30)
[2020-01-08] MEDS ORDERED: Famotidine/PF 20 mg/2ml Vial ONE (08:30)
--- NOTE | 2020-01-08 09:55 | OP ---
DATE OF PROCEDURE: 01/08/2020 ANESTHESIA: Local plus TIVA. PREOPERATIVE DIAGNOSIS: Left trigger thumb. POSTOPERATIVE DIAGNOSIS: Left trigger thumb. PROCEDURE PERFORMED: Left trigger thumb release. DESCRIPTION OF PROCEDURE: After satisfactory anesthesia was induced in supine position, the patient was prepped and draped in routine manner. A metacarpal block was accomplished with 1% lidocaine 10 mL. The left arm was elevated and exsanguinated with an Esmarch bandage and the tourniquet inflated to 250 mmHg. A transverse incision was made over the palmar aspect of the left thumb over the area of the A1 azalea. This was carried down through the subcutaneous tissues. Bleeding points were controlled with Bovie cautery. Digital neurovascular bundles were retracted and protected throughout the procedure. Using sharp and blunt dissection, the A1 azalea was exposed and divided from the proximal distal direction with small scissors and the azalea completely released. A small segment excised. Flexor tendon could then be pulled into the wound and there was full range of motion. No triggering. The patient was then awakened and asked to flex her thumb and she could do so without any further triggering. The wound was thoroughly irrigated and closed with interrupted 3-0 nylon. A sterile bulky compressive dressing was applied and the tourniquet deflated after 13 minutes. Hand promptly pinked up and the patient was awakened and taken from the operating room in stable condition. There were no apparent intraoperative complications. The estimated blood loss was negligible. The patient will be discharged home in satisfactory condition, instructed on ice, elevation, and given written wound care instructions. She has tramadol at home for pain. She will be rechecked in my office in 10 to 14 days or sooner if there are any problems prior to that time. Job ID: [id number]
[2020-01-08] MEDS ORDERED: Lidocaine 1% PF 5 ML VIAL ONE (10:58)
[2020-01-08] MEDS ORDERED: Ondansetron PF 4 MG/2 ML Vial ONE (10:58)
[2020-01-08] MEDS ORDERED: PROPOFOL 200 MG/20 ML VIAL ONE (10:58)
[2020-01-08] MEDS ORDERED: Ketorolac Tromethamine 30 MG/ML VIAL ONE (10:58)
[2020-01-08] MEDS ORDERED: Dexamethasone 20 MG/5 ML VIAL ONE (10:58)
[2020-01-08] MEDS ORDERED: EPHEDRINE 25 MG/5 ML SYRINGE ONE (10:58)
[2020-01-08] MEDS ORDERED: Metoclopramide HCl 10 MG/2 ML VIAL ONE (10:58)
== END 2020-01-08 10:29 | disposition home or self-care (01) ==
LOC: SDC 06:36
PROVIDERS: ATTEND Orthopaedic Surgery
PROC: 0LN80ZZ Release Left Hand Tendon, Open Approach (ICD-10-PCS; principal; 2020-01-08)
DX: M65.312 Trigger thumb, left thumb (principal); M79.7 Fibromyalgia; I10 Essential (primary) hypertension; E78.00 Pure hypercholesterolemia, unspecified; M19.90 Unspecified osteoarthritis, unspecified site; E78.5 Hyperlipidemia, unspecified; G89.29 Other chronic pain; M54.9 Dorsalgia, unspecified; Z79.899 Other long term (current) drug therapy; Z88.6 Allergy status to analgesic agent; Z91.012 Allergy to eggs; Z98.1 Arthrodesis status
CPT/HCPCS: J0690; J1100; J1885; J2001; J2405; J2704; J2765; J3010; S0028

== ENCOUNTER 2020-09-30 13:14 | Outpatient (CLI) | payer MEDICARE | END 2020-09-30 13:15 | disposition home or self-care (01) | LOC: BICMAMMO 13:14 | PROVIDERS: ATTEND Family Medicine | DX: Z12.31 Encounter for screening mammogram for malignant neoplasm of breast (principal); Z13.820 Encounter for screening for osteoporosis; Z78.0 Asymptomatic menopausal state; Z80.3 Family history of malignant neoplasm of breast; Z91.89 Other specified personal risk factors, not elsewhere classified | CPT/HCPCS: 77063; 77067; 77080 ==

== ENCOUNTER 2020-11-10 14:10 | Outpatient (CLI) | payer MEDICARE | END 2020-11-10 14:11 | disposition home or self-care (01) | LOC: TBSIIMAG 14:10 | PROVIDERS: ATTEND Neurological Surgery | DX: M54.2 Cervicalgia (principal); M47.812 Spondylosis without myelopathy or radiculopathy, cervical region; Z98.1 Arthrodesis status | CPT/HCPCS: 72040 ==

== ENCOUNTER 2021-08-20 13:10 | Outpatient (CLI) | payer MEDICARE | END 2021-08-20 13:11 | disposition home or self-care (01) | LOC: TBSIIMAG 13:10 | PROVIDERS: ATTEND Neurological Surgery | DX: M47.22 Other spondylosis with radiculopathy, cervical region (principal); M47.23 Other spondylosis with radiculopathy, cervicothoracic region; M54.16 Radiculopathy, lumbar region; M48.061 Spinal stenosis, lumbar region without neurogenic claudication | CPT/HCPCS: 72141; 72148 ==

== ENCOUNTER 2021-09-21 13:33 | Outpatient (CLI) | payer MEDICARE ==
[2021-09-21 14:50] LABS: Hemoglobin 12.4 g/dL (12.0-15.5); Mean Corpuscular HGB CONC 33.5 g/dL (32.0-36.0); Mean Corpuscular Hemoglobin 30.7 pg (27.0-33.0); Mean Corpuscular Volume 91.6 fl (81.6-98.3); Mean Platelet Volume 9.6 fl (7.4-10.4); Platelet Count 288 10x3/uL (150-450); RBC Distribution Width 12.7 % (11.5-14.5); Red Blood Cell (RBC) Count 4.04 10x6/uL (3.90-5.03); White Blood Cell (WBC) Count 5.8 10x3/uL (3.5-10.5)
[2021-09-21 14:52] LABS: Anion Gap 13 mmol/L (10-20); BUN (Urea Nitrogen) 14 mg/dL (9.8-20.1); Calc. Creatinine Clearance 0 mL/min (70-130); Calcium 9.7 mg/dL (7.8-10.44); Carbon Dioxide 26 mmol/L (23-31); Chloride 99 mmol/L (98-107); Glucose 107 mg/dL (83-110); Potassium 4.3 mmol/L (3.5-5.1); Sodium 134 mmol/L (136-145)
== END 2021-09-21 13:34 | disposition home or self-care (01) ==
LOC: LABBT 13:33
PROVIDERS: ATTEND Neurological Surgery
DX: Z01.818 Encounter for other preprocedural examination (principal); M54.16 Radiculopathy, lumbar region; Z20.822 Contact with and (suspected) exposure to COVID-19
CPT/HCPCS: 80048; 85027; 93005; U0003; U0005; 93010

== ENCOUNTER 2021-09-24 06:32 | Day surgery (SDC) | payer MEDICARE ==
[2021-09-22 09:34] VITALS: BMI 29.9
[2021-09-24] MEDS ORDERED: EPINEPHrine 1 MG/ML AMP ONE (07:57)
[2021-09-24] MEDS ORDERED: Bupivacaine 0.25% HCL 30 ML VIAL ONE (07:57)
[2021-09-24] MEDS ORDERED: Thrombin 5000 UNITS/5 ML VIAL ONE (07:57)
[2021-09-24] MEDS ORDERED: CEFAZOLIN 2 GM VIAL ONE ×2 (08:42→12:17)
[2021-09-24] MEDS ORDERED: fentaNYL Citrate/PF 100 MCG/2 ML SYRINGE ONE ×3 (08:42→11:28)
[2021-09-24] MEDS ORDERED: Sodium Chloride 0.9% 100 ML ONE ×2 (08:42→12:18)
[2021-09-24] MEDS ORDERED: Bupivacaine PF 0.5% 30 ML VIAL ONE (09:16)
[2021-09-24] MEDS ORDERED: Ondansetron HCl/PF 4 MG/2 ML Vial IVP PRN (10:45)
[2021-09-24] MEDS ORDERED: Promethazine HCl 25 MG/ML VIAL IM PRN (10:45)
[2021-09-24] MEDS ORDERED: Promethazine HCl 25 MG/ML VIAL IVPB PRN (10:45)
[2021-09-24] MEDS ORDERED: HYDROcodone/Acetaminophen 5/325 mg Tablet ONE (12:17)
== END 2021-09-24 14:08 | disposition home or self-care (01) ==
LOC: SDC 06:32
PROVIDERS: ATTEND Neurological Surgery
PROC: 01NB0ZZ Release Lumbar Nerve, Open Approach (ICD-10-PCS; principal; 2021-09-24)
DX: M48.061 Spinal stenosis, lumbar region without neurogenic claudication (principal); M54.16 Radiculopathy, lumbar region; I10 Essential (primary) hypertension; E78.5 Hyperlipidemia, unspecified; M19.90 Unspecified osteoarthritis, unspecified site; G89.29 Other chronic pain; M54.9 Dorsalgia, unspecified; M79.7 Fibromyalgia; M81.0 Age-related osteoporosis without current pathological fracture; Z79.1 Long term (current) use of non-steroidal anti-inflammatories (NSAID); Z79.899 Other long term (current) drug therapy; Z88.6 Allergy status to analgesic agent; Z91.012 Allergy to eggs; Z98.1 Arthrodesis status
CPT/HCPCS: 76000; J0171; J0690; J3490; S0020

== ENCOUNTER 2021-11-10 11:00 | Outpatient (CLI) | payer MEDICARE | END 2021-11-10 11:01 | disposition home or self-care (01) | LOC: BICMAMMO 11:00 | PROVIDERS: ATTEND Family Medicine | DX: Z12.31 Encounter for screening mammogram for malignant neoplasm of breast (principal); Z91.89 Other specified personal risk factors, not elsewhere classified; Z80.3 Family history of malignant neoplasm of breast | CPT/HCPCS: 77063; 77067 ==

== ENCOUNTER 2022-11-14 13:43 | Outpatient (CLI) | payer MEDICARE | END 2022-11-14 13:44 | disposition home or self-care (01) | LOC: BICMAMMO 13:43 | PROVIDERS: ATTEND Family Medicine | DX: Z12.31 Encounter for screening mammogram for malignant neoplasm of breast (principal); Z13.820 Encounter for screening for osteoporosis; M85.851 Other specified disorders of bone density and structure, right thigh; M85.852 Other specified disorders of bone density and structure, left thigh; Z78.0 Asymptomatic menopausal state; Z80.3 Family history of malignant neoplasm of breast; Z91.89 Other specified personal risk factors, not elsewhere classified | CPT/HCPCS: 77063; 77067; 77080 ==

== ENCOUNTER 2022-11-21 09:28 | Outpatient (CLI) | payer MEDICARE ==
[2022-11-21] MEDS ORDERED: Magnevist 469MG/ML 20 ML VIAL ONE ×2 (09:55)
== END 2022-11-21 09:29 | disposition home or self-care (01) ==
LOC: BICMRI 09:28
PROVIDERS: ATTEND Neurological Surgery
DX: M47.26 Other spondylosis with radiculopathy, lumbar region (principal); M51.16 Intervertebral disc disorders with radiculopathy, lumbar region; M89.38 Hypertrophy of bone, other site; M47.817 Spondylosis without myelopathy or radiculopathy, lumbosacral region; R60.9 Edema, unspecified; M47.22 Other spondylosis with radiculopathy, cervical region; M50.123 Cervical disc disorder at C6-C7 level with radiculopathy; Z98.1 Arthrodesis status
CPT/HCPCS: 72156; 72158; 82565; A9579

== ENCOUNTER 2022-12-09 11:05 | Outpatient (CLI) | payer MEDICARE ==
[2022-12-09 12:27] LABS: Hematocrit 37.5 % (34.9-44.5); Hemoglobin 12.6 g/dL (12.0-15.5); Mean Corpuscular HGB CONC 33.6 g/dL (32.0-36.0); Mean Corpuscular Hemoglobin 29.9 pg (27.0-33.0); Mean Corpuscular Volume 88.9 fl (81.6-98.3); Mean Platelet Volume 9.6 fl (7.4-10.4); Platelet Count 315 10x3/uL (150-450); RBC Distribution Width 12.6 % (11.5-14.5); Red Blood Cell (RBC) Count 4.22 10x6/uL (3.90-5.03); White Blood Cell (WBC) Count 5.6 10x3/uL (3.5-10.5)
[2022-12-09 12:45] LABS: Anion Gap 13 mmol/L (10-20); BUN (Urea Nitrogen) 15 mg/dL (9.8-20.1); Calc. Creatinine Clearance 0 mL/min (70-130); Calcium 9.7 mg/dL (7.8-10.44); Carbon Dioxide 27 mmol/L (23-31); Chloride 97 mmol/L (98-107); Estimated GFR 68; Glucose 77 mg/dL (83-110); Sodium 132 mmol/L (136-145)
== END 2022-12-09 11:06 | disposition home or self-care (01) ==
LOC: LABBT 11:05
PROVIDERS: ATTEND Neurological Surgery
DX: Z01.812 Encounter for preprocedural laboratory examination (principal); M54.16 Radiculopathy, lumbar region
CPT/HCPCS: 80048; 85027

== ENCOUNTER 2022-12-14 07:18 | Day surgery (SDC) | payer MEDICARE ==
[2022-12-09 11:51] VITALS: BMI 29.2
[2022-12-14] MEDS ORDERED: Sodium Chloride 0.9% 100 ML ONE ×2 (09:41→14:15)
[2022-12-14] MEDS ORDERED: CEFAZOLIN 2 GM VIAL ONE ×2 (09:41→14:15)
[2022-12-14] MEDS ORDERED: EPINEPHrine 1 MG/ML AMP ONE (09:44)
[2022-12-14] MEDS ORDERED: Bupivacaine PF 0.5% 30 ML VIAL ONE (09:44)
[2022-12-14] MEDS ORDERED: Thrombin 5000 UNITS/5 ML VIAL ONE (09:44)
[2022-12-14] MEDS ORDERED: fentaNYL 50 mcg/mL 1 mL Vial ONE ×2 (10:21→12:03)
[2022-12-14] MEDS ORDERED: Dexamethasone 20 MG/5 ML VIAL ONE (10:25)
[2022-12-14] MEDS ORDERED: PHENYLEPHRINE-NS 100 MCG/ML 10 ML SYRINGE ONE (10:25)
[2022-12-14] MEDS ORDERED: Ondansetron PF 4 MG/2 ML Vial ONE (10:25)
[2022-12-14] MEDS ORDERED: Rocuronium Bromide 10 MG/ML (10ML VIAL) ONE (10:25)
[2022-12-14] MEDS ORDERED: Lidocaine 1% PF 5 ML VIAL ONE (10:25)
[2022-12-14] MEDS ORDERED: PROPOFOL 200 MG/20 ML VIAL ONE (10:25)
[2022-12-14] MEDS ORDERED: SUGAMMADEX SODIUM 200 MG/2 ML VIAL ONE (11:27)
[2022-12-14] MEDS ORDERED: HYDROmorphone 0.5 MG/0.5 ML SYRINGE ONE ×2 (12:24→13:05)
[2022-12-14] MEDS ORDERED: HYDROcodone/Acetaminophen 5/325 mg Tablet ONE (14:48)
== END 2022-12-14 15:20 | disposition home or self-care (01) ==
LOC: SDC 07:18
PROVIDERS: ATTEND Neurological Surgery
PROC: 01NB0ZZ Release Lumbar Nerve, Open Approach (ICD-10-PCS; principal; 2022-12-14)
DX: M48.061 Spinal stenosis, lumbar region without neurogenic claudication (principal); M54.16 Radiculopathy, lumbar region; E78.5 Hyperlipidemia, unspecified; I10 Essential (primary) hypertension; M19.90 Unspecified osteoarthritis, unspecified site; Z79.899 Other long term (current) drug therapy; Z91.012 Allergy to eggs; Z88.6 Allergy status to analgesic agent
CPT/HCPCS: 63047; 63048; J3010; J0171; J1100; J1170; J2405; J2704; J3490; S0020

== ENCOUNTER 2023-02-01 07:01 | Inpatient (IN) | payer MEDICARE ==
[2023-01-31 11:40] VITALS: BMI 29.0
[2023-02-01] MEDS ORDERED: Thrombin 5000 UNITS/5 ML VIAL ONE (09:31)
[2023-02-01] MEDS ORDERED: CEFAZOLIN 2 GM VIAL ONE ×2 (09:52→14:27)
[2023-02-01] MEDS ORDERED: PROPOFOL 200 MG/20 ML VIAL ONE (09:52)
[2023-02-01] MEDS ORDERED: PHENYLEPHRINE-NS 100 MCG/ML 10 ML SYRINGE ONE (09:52)
[2023-02-01] MEDS ORDERED: Lidocaine 1% PF 5 ML VIAL ONE (09:52)
[2023-02-01] MEDS ORDERED: Sodium Chloride 0.9% 100 ML ONE ×2 (09:52→14:27)
[2023-02-01] MEDS ORDERED: Rocuronium Bromide 10 MG/ML (10ML VIAL) ONE (09:52)
[2023-02-01] MEDS ORDERED: Dexamethasone 20 MG/5 ML VIAL ONE (09:52)
[2023-02-01] MEDS ORDERED: Ondansetron PF 4 MG/2 ML Vial ONE ×2 (09:52→11:50)
[2023-02-01] MEDS ORDERED: fentaNYL 50 mcg/mL 1 mL Vial ONE (09:53)
[2023-02-01] MEDS ORDERED: SUGAMMADEX SODIUM 200 MG/2 ML VIAL ONE (10:45)
[2023-02-01] MEDS ORDERED: Fentanyl 250 MCG/5 ML VIAL ONE (11:54)
[2023-02-01] MEDS ORDERED: HYDROmorphone 0.5 MG/0.5 ML SYRINGE ONE (12:24)
[2023-02-01] MEDS ORDERED: HYDROcodone/Acetaminophen 5/325 mg Tablet ONE (14:27)
== END 2023-02-01 15:15 | disposition home or self-care (01) | DRG 30 ==
LOC: SURG A 07:01 → EDSTATUS 12:48
PROVIDERS: ADMIT Neurological Surgery; ATTEND Neurological Surgery
PROC: 0RG10A0 Fusion of Cervical Vertebral Joint with Interbody Fusion Device, Anterior Approach, Anterior Column, Open Approach (ICD-10-PCS; principal; 2023-02-01)
PROC: 0RB30ZZ Excision of Cervical Vertebral Disc, Open Approach (ICD-10-PCS; 2023-02-01)
PROC: 00NW0ZZ Release Cervical Spinal Cord, Open Approach (ICD-10-PCS; 2023-02-01)
DX: M54.12 Radiculopathy, cervical region (principal); E78.5 Hyperlipidemia, unspecified; M81.0 Age-related osteoporosis without current pathological fracture; G89.4 Chronic pain syndrome; M19.90 Unspecified osteoarthritis, unspecified site; I10 Essential (primary) hypertension; Z98.890 Other specified postprocedural states; Z79.899 Other long term (current) drug therapy; Z91.012 Allergy to eggs; Z88.8 Allergy status to other drugs, medicaments and biological substances
CPT/HCPCS: C1713; J1100; J1170; J2405; J2704; J3010; J3490

== ENCOUNTER 2024-02-16 13:24 | Outpatient (CLI) | payer MEDICARE ==
[2024-02-16] MEDS ORDERED: Magnevist 469MG/ML 20 ML VIAL ONE (15:14)
== END 2024-02-16 13:25 | disposition home or self-care (01) ==
LOC: MRI 13:24
PROVIDERS: ATTEND Neurological Surgery
DX: M50.123 Cervical disc disorder at C6-C7 level with radiculopathy (principal); M47.22 Other spondylosis with radiculopathy, cervical region; M48.02 Spinal stenosis, cervical region; Z98.890 Other specified postprocedural states; Z98.1 Arthrodesis status
CPT/HCPCS: 72156